=== PATIENT | female | born 1965 | race Caucasian/White ===

== ENCOUNTER 2016-03-31 14:25 | Inpatient (IN) | payer OTHER ==
[2016-03-31] MEDS: VANCOMYCIN 1 GM/NS 250 ML IV SCH (17:14)
[2016-03-31 18:28] LABS: MANUAL DIFF NEEDED? NO
[2016-03-31 18:31] LABS: BASO% 0.3 % (0.0-0.8); EOS# 0.11 X1000 (0.0-0.7); EOS% 1.5 % (0.0-10.0); HEMATOCRIT 35.5 % (37.0-47.0); HEMOGLOBIN 11.1 g/dL (12.0-16.0); IMM GRAN# 0.03 X1000 (0.0-0.04); IMM GRAN% 0.4 % (0.0-0.5); LYMPH# 1.04 X1000 (1.2-3.4); LYMPH% 13.9 % (20.5-51.1); MCH 25.7 PG (27-31); MCHC 31.3 g/dL (33-37); MCV 82.2 FL (81-99); MONO# 0.54 X1000 (0.11-0.59); MONO% 7.2 % (1.7-9.3); NEUT% 76.7 % (42.2-75.2); PLT 393 X1000 (130-400); RBC 4.32 XMIL (4.2-5.4)
[2016-03-31 19:05] LABS: AGAP 14; BUN 9 mg/dL (8-22); CHLORIDE 101 mmol/L (98-107); COSMO 276; POTASSIUM 4.1 mmol/L (3.5-5.1); SODIUM 138 mmol/L (136-145); TCO2 23 mmol/L (25-35)
[2016-04-01] MEDS: MOTRIN PO PRN ×3 (00:13→21:40)
[2016-04-01] MEDS: VANCOMYCIN 1 GM/NS 250 ML IV SCH ×2 (04:56→17:22)
[2016-04-01] MEDS ORDERED: SYNTHROID PO ONE (13:41)
[2016-04-01] MEDS ORDERED: ROBAXIN PO ONE ×2 (13:43→21:46)
[2016-04-01] MEDS ORDERED: MAXALT PO ONE (13:45)
[2016-04-01] MEDS: DUONEB (A & A) INH SCH ×2 (15:46→20:59)
[2016-04-01] MEDS ORDERED: WELCHOL PO SCH (21:00)
[2016-04-01] MEDS: WELCHOL PO SCH (21:42)
[2016-04-02] MEDS: DUONEB (A & A) INH SCH ×4 (03:26→21:44)
[2016-04-02] MEDS: VANCOMYCIN 1 GM/NS 250 ML IV SCH ×2 (04:50→17:59)
[2016-04-02] MEDS: ZEGERID 40 MG PO SCH (06:07)
[2016-04-02] MEDS: SYNTHROID PO SCH (06:07)
[2016-04-02] MEDS: MOTRIN PO PRN (06:07)
--- NOTE | 2016-04-02 06:45 | PROGRESS NOTE ---
DATE: 04/02/2016 SUBJECTIVE: Patient doing well. No major issues. She has been on antibiotics for cellulitis of her right lower extremity. She reports no issues at this time. Nursing staff denies any issues. OBJECTIVE: Vital signs: The patient has been afebrile. Her vital signs have been stable. General: No acute distress. Alert, interactive, female, looks stated age. HEENT: Normocephalic, atraumatic. Pupils equal, round, reactive to light. Mucous membranes moist. Oropharynx benign. Neck: Supple. Trachea midline. Cardiovascular: Regular rate and rhythm. Lungs: Grossly clear. Abdomen: Soft, nontender, nondistended. Extremities: Swelling noted to bilateral lower extremities. Right side appears to be worse. There is some erythema noted to the leg, although there are no signs of clinical worsening. Vascular: All extremities perfused. LABORATORY: None today. ASSESSMENT AND PLAN: A 50-year-old female with cellulitis of the right lower extremity, likely secondary to swelling. Cellulitis: At this time, she is on antibiotics. Will continue antibiotics through the weekend while she needs to keep her leg elevated to allow some drainage of the fluid. Will continue to follow the patient closely.
[2016-04-02] MEDS: ALLEGRA PO SCH (09:31)
[2016-04-02] MEDS: SANTYL OINT TOP SCH (09:39)
[2016-04-02] MEDS: WELCHOL PO SCH (21:18)
[2016-04-02] MEDS ORDERED: ROBAXIN PO PRN (21:32)
[2016-04-03] MEDS: DUONEB (A & A) INH SCH ×5 (03:19→23:35)
[2016-04-03] MEDS: ZEGERID 40 MG PO SCH (06:07)
[2016-04-03] MEDS: SYNTHROID PO SCH (06:07)
[2016-04-03] MEDS: VANCOMYCIN 1 GM/NS 250 ML IV SCH ×2 (06:07→18:23)
--- NOTE | 2016-04-03 07:25 | PROGRESS NOTE ---
DATE: 04/03/2016 SUBJECTIVE: Patient doing well. No major issues. OBJECTIVE: Vital Signs: Patient is currently afebrile. Her vital signs have been stable. General exam: No acute distress. Alert, interactive female, looks stated age. HEENT: Normocephalic, atraumatic. Pupils equal, round, reactive to light. Mucous membranes moist. Oropharynx benign. Neck: Supple. Trachea midline. Cardiovascular: Regular rate and rhythm. Lungs: Grossly clear. Abdomen: Soft, nontender, nondistended. Extremities: Swelling noted bilateral lower extremities. Right side appears grossly unchanged from yesterday but no worsening. There is still some erythema noted and significant swelling. LABORATORY: None. MICROBIOLOGY: Shows gram-positive cocci. ASSESSMENT AND PLAN: A 50-year-old female with cellulitis of the right lower extremity likely secondary to swelling. Cellulitis. At this time she is on antibiotics with good coverage for the potential bacterium that is causing her infection. Will keep her leg elevated and monitor her through the weekend.
[2016-04-03] MEDS: ALLEGRA PO SCH ×2 (07:57→11:07)
[2016-04-03] MEDS: SANTYL OINT TOP SCH (07:59)
[2016-04-03] MEDS: WELCHOL PO SCH ×2 (19:57→22:41)
[2016-04-03] MEDS: MOTRIN PO PRN (19:57)
[2016-04-04] MEDS: DUONEB (A & A) INH SCH ×4 (05:28→21:42)
[2016-04-04] MEDS: VANCOMYCIN 1 GM/NS 250 ML IV SCH ×2 (05:28→16:00)
[2016-04-04] MEDS: ZEGERID 40 MG PO SCH ×2 (05:28→09:08)
[2016-04-04] MEDS: SYNTHROID PO SCH ×2 (05:28→09:08)
[2016-04-04] MEDS: SANTYL OINT TOP SCH (09:39)
[2016-04-04] MEDS: ALLEGRA PO SCH (09:39)
[2016-04-04] MEDS: WELCHOL PO SCH (21:07)
[2016-04-05] MEDS: DUONEB (A & A) INH SCH ×4 (03:58→19:49)
[2016-04-05] MEDS: ZEGERID 40 MG PO SCH (06:21)
[2016-04-05] MEDS: VANCOMYCIN 1 GM/NS 250 ML IV SCH ×2 (06:21→17:40)
[2016-04-05] MEDS: SYNTHROID PO SCH (06:21)
[2016-04-05] MEDS: ALLEGRA PO SCH (08:14)
[2016-04-05] MEDS: SANTYL OINT TOP SCH (08:14)
[2016-04-05] MEDS: MOTRIN PO PRN (10:07)
[2016-04-05] MEDS: WELCHOL PO SCH (20:04)
[2016-04-06] MEDS: DUONEB (A & A) INH SCH (04:04)
[2016-04-06] MEDS: SYNTHROID PO SCH (06:06)
[2016-04-06] MEDS: VANCOMYCIN 1 GM/NS 250 ML IV SCH (06:06)
[2016-04-06] MEDS: ZEGERID 40 MG PO SCH (06:06)
[2016-04-06 07:49] VITALS: BP 135/71
[2016-04-06] MEDS: ALLEGRA PO SCH (08:32)
--- NOTE | 2016-04-07 17:05 | DISCHARGE SUMMARY ---
ADMISSION DATE: 03/31/2016 DISCHARGE DATE: 04/06/2016 PRIMARY DISCHARGE DIAGNOSIS: Right lower extremity ulceration with cellulitis. OTHER DIAGNOSES: 1. Spina bifida. 2. Autoimmune disorder. 3. Gastroesophageal reflux disease. HOSPITAL COURSE: This is a 50-year-old lady who has failed outpatient therapy for her right lower extremity cellulitis and ulceration. She is noncompliant. So we have admitted her for bed rest, elevation of her legs, IV antibiotic therapy. HOSPITAL COURSE: Following her admission, Jimena was placed on vancomycin. Santyl was used for her ulcer. Ibuprofen is used for pain. Over the course of her hospital stay her swelling significantly decreased, the erythema decreased. Her wound culture grew out coagulase-negative staph. On or about 04/06, it was felt she could be discharged home. We will wrap her legs in an Unna boot. She is to [facility]. We will send her home on Keflex. She will resume her other usual medications. She is significantly improved after hospitalization.
== END 2016-04-06 10:36 | disposition home or self-care (01) | DRG 603 ==
LOC: DIRADM 14:25 → 4N 15:12
PROVIDERS: ADMIT Surgery; ATTEND Surgery
DX: L03.116 Cellulitis of left lower limb (principal); I83.219 Varicose veins of right lower extremity with both ulcer of unspecified site and inflammation; F32.9 Major depressive disorder, single episode, unspecified; M19.90 Unspecified osteoarthritis, unspecified site; M35.9 Systemic involvement of connective tissue, unspecified; K21.9 Gastro-esophageal reflux disease without esophagitis; E07.9 Disorder of thyroid, unspecified; B95.61 Methicillin susceptible Staphylococcus aureus infection as the cause of diseases classified elsewhere; Z87.891 Personal history of nicotine dependence; Z80.9 Family history of malignant neoplasm, unspecified; Z79.1 Long term (current) use of non-steroidal anti-inflammatories (NSAID); Q05.9 Spina bifida, unspecified; Z91.19 Patient's noncompliance with other medical treatment and regimen
CPT/HCPCS: 80048; 85025; 87070; 87077; 87186; 94640; 94761; J3370

== ENCOUNTER 2016-08-06 12:22 | Inpatient (IN) ==
[2016-08-06 13:13] LABS: MANUAL DIFF NEEDED? NO; URINE CULTURE NEEDED? NO; URINE MICRO REVIEW NEEDED? NO; URINE SOURCE CLEAN CATCH
[2016-08-06 13:15] LABS: BASO% 0.8 % (0.0-0.8); EOS# 0.09 X1000 (0.0-0.7); EOS% 1.1 % (0.0-10.0); HEMATOCRIT 36.2 % (37.0-47.0); HEMOGLOBIN 11.7 g/dL (12.0-16.0); LYMPH# 0.97 X1000 (1.2-3.4); LYMPH% 12.4 % (20.5-51.1); MCH 26.5 PG (27-31); MCHC 32.3 g/dL (33-37); MCV 81.9 FL (81-99); MONO# 0.68 X1000 (0.11-0.59); MONO% 8.7 % (1.7-9.3); MPV 9.2 FL (7.4-10.4); PLT 360 X1000 (130-400); RBC 4.42 XMIL (4.2-5.4)
[2016-08-06 13:17] LABS: BILIRUBIN URINE NEGATIVE (NEGATIVE); BLOOD URINE NEGATIVE (NEGATIVE); COLOR STRAW; GLUCOSE URINE NEGATIVE (NEGATIVE); LEUKOCYTES URINE NEGATIVE (NEGATIVE); NITRITE URINE NEGATIVE (NEGATIVE); PH URINE 6.5; PROTEIN URINE NEGATIVE (NEGATIVE); SP GRAVITY URINE 1.003; TURBIDITY URINE CLEAR (CLEAR); UR EPITHELIAL CELLS <10 /HPF (<10); URINE BACTERIA NEGATIVE /HPF; URINE RBC <10 /HPF (<10); URINE WBC <10 /HPF (<10); UROBILINOGEN URINE NORMAL (NORMAL)
[2016-08-06 13:32] LABS: AGAP 11; BUN 13 mg/dL (8-22); CALCIUM 8.8 mg/dL (8.8-10.2); CHLORIDE 106 mmol/L (98-107); COSMO 281; POTASSIUM 3.4 mmol/L (3.5-5.1); SODIUM 141 mmol/L (136-145); TCO2 24 mmol/L (25-35)
[2016-08-06] MEDS ORDERED: KLOR-CON PO ONE (13:45)
[2016-08-06] MEDS ORDERED: NS 1,000 ML IV ONE (13:52)
--- NOTE | 2016-08-06 15:24 | Diag Imaging Result Doc PS360 ---
EXAM: HEAD W/WO CONTRAST HISTORY: frequent falls, dizziness TECHNIQUE: CT of the head with and without contrast with dose reduction (clarity.) COMMENT: There is no evidence of bleed or abnormal extra-axial fluid collection. No mass effect or abnormal contrast enhancement is present. The regional skeleton is intact. The visualized paranasal sinuses are clear. IMPRESSION: No evidence of acute intracranial disease. Electronically signed by Magnus Swain 08/06/2016 3:22 PM
--- NOTE | 2016-08-06 17:24 | Diag Imaging Result Doc PS360 ---
EXAM: ANGIOGRAM/PULMONARY ARTERIES HISTORY: low 02 sat, tachycardia TECHNIQUE: CT of the chest with intravenous contrast and decreased dose (clarity.) COMMENT: There is some artifact due to motion. There are no definite pulmonary arterial filling defects. The thoracic aorta is not distended and there is no evidence of dissection. There are patchy groundglass and denser alveolar opacities in both lower lobes the right middle lobe and the posterior upper lobes bilaterally. There is a calcified granuloma in the right upper lobe. IMPRESSION: No evidence of pulmonary emboli. Pulmonary edema +/- pneumonia. Electronically signed by Magnus Swain 08/06/2016 5:22 PM
[2016-08-06] MEDS ORDERED: SOLU-MEDROL IV ONE (17:39)
[2016-08-06] MEDS ORDERED: DUONEB (A & A) INH ONE (17:39)
[2016-08-06 18:02] LABS: ALLEN TEST YES; BE -1.2 mmoll (-3.0-3.0); BLOOD TYPE ARTERIAL; DRAW SITE R RADIAL; METHB 0.9 % (0.0-1.5); O2(CT) 14.8 mL/dL (15.0-23.0); PCO2(98.6) 34 mmHg (35-45); PO2(98.6) 51 mmHg (60-100); SAMPLE BLOOD; SAO2 92.1 % (95.0-100.0); THB 11.7 g/dL (11.5-17.4); pH(98.6) 7.43 (7.35-7.45)
[2016-08-06 18:03] LABS: MODALITY CANNULA
--- NOTE | 2016-08-06 18:04 | PROVIDER DOCUMENTATION ---
This chart was entered by Sally Bradford Scribe, acting as scribe for Gerry Russo MD. HPI-General Adult - General Chief Complaint: Fall Stated Complaint: fall/hx of vertigo Time Seen by Provider: 08/06/16 12:23 Source: patient Allergies/Adverse Reactions: Patient Allergies Allergy/AdvReac Type Severity Reaction Status Date / Time latex Allergy RASH Verified 08/06/16 12:51 hydrocodone bitartrate * AdvReac ITCHING Verified 08/06/16 12:51 [From Lorcet (hydrocodone)] morphine AdvReac ITCHING Verified 08/06/16 12:51 prednisone AdvReac Unknown Verified 08/06/16 12:51 Home Medications: Home Medication List Medication Instructions Recorded Confirmed Last Taken Type Albuterol [Albuterol Neb] 2.5 mg INH Q4H PRN PRN 03/31/16 03/31/16 03/28/16 History Colesevelam HCl [Welchol] 3,750 mg PO QHS 03/31/16 04/01/16 03/31/16 History 1875 Fexofenadine [Faye] 180 mg PO DAILY 03/31/16 03/31/16 03/31/16 History 180 Ipratropium/Albuterol INH 1 puff INH RTQ6H 03/31/16 03/31/16 03/31/16 History [Combivent Respimat Inhaler] 1 puff Levothyroxine Sodium [Synthroid] 88 mcg PO DAILY 03/31/16 03/31/16 03/31/16 History 88 Methocarbamol [Robaxin-750] 750 mg PO QHS 03/31/16 03/31/16 Unknown History Omeprazole/Sodium Bicarbonate 40 mg PO DAILY PRN PRN 03/31/16 03/31/16 03/28/16 History [Zegerid 40 mg] 40 Rizatriptan Benzoate [Maxalt] 5 mg PO 5XDAY 03/31/16 03/31/16 03/27/16 History Cephalexin [Keflex] 500 mg PO 4XDAY #20 capsule 04/06/16 Unknown Rx - History of Present Illness -Gen Adult Nature of Presenting Problems: 50 Y/O F presents to the ER by EMS with the complaint of falling from her wheelchair [employer]. Pt states that she has Hx of dizziness and has fallen 4 times in past X4 days from her wheelchair. She says she may have blacked out for a second. pt denies any trauma to her head or any other injuries. Location of Pain/Injury: reports: none Onset/Duration: reports: just prior to arrival Associated Symptoms: reports: other Similar Symptoms Previously?: Yes Recently seen or treated by another doctor?: No Review of Systems - Adult - REVIEW OF SYSTEMS - ADULT Constitutional: reports: no symptoms reported Eyes: reports: no symptoms reported Ears, Nose, Mouth & Throat: reports: no symptoms reported Cardiovascular: reports: no symptoms reported. denies: palpitations Respiratory: reports: no symptoms reported. denies: cough, dyspnea on exertion , shortness of breath Gastrointestinal: reports: no symptoms reported Genitourinary: reports: no symptoms reported Musculoskeletal: reports: no symptoms reported, other (Usually uses forearm crutches but due to recent foot/leg problem she has been in manual W/C; Has some mild R shoulder pain due to use of manual W/C) Integumentary: reports: no symptoms reported Neurological: reports: see HPI, dizziness/vertigo. denies: headache/migraines Psychiatric: reports: no symptoms reported Endocrine: reports: no symptoms reported Hematologic/Lymphatic: reports: no symptoms reported Allergic/Immunologic: reports: no symptoms reported All Other Systems: Reviewed and Negative Past History - Adult - PAST MEDICAL HISTORY-ADULT Review of Records: reports: Old Records Reviewed, Nursing Assessment Review, Social history reviewed & non-contributory. Major Childhood Illnesses: reports: denies history Cardiovascular: reports: denies history Respiratory: reports: denies history Gastrointestinal: reports: denies history Obstetrical/Gynecological: reports: denies history Genitourinary: reports: denies history Musculoskeletal: reports: chronic pain Neurological: reports: other (cerebral palsy) Psychiatric: reports: denies history Endocrine/Immune: reports: denies history Other Conditions: reports: denies history - IMMUNIZATION STATUS Childhood Immunizations: See Nurse Assessment Flu Vaccine: See Nurse Assessment - FAMILY HISTORY Family History: reviewed, not pertinent Physical Exam-General - PHYSICAL EXAM-ADULT Initial Vital Signs Reviewed: Yes (At the time of my exam patient was not tachypneic) - CONSTITUTIONAL General Appearance: appears well, alert, no apparent distress - EYES Eyes: PERRL/EOMI, pink conjunctivae - HEAD, EARS, NOSE, MOUTH & THROAT HENMT: moist mucous membranes, normal ENT inspection - NECK Neck: non-tender, full range of motion, supple - RESPIRATORY Respiratory: lungs clear, normal breath sounds, no pleuratic chest pain, no respiratory distress - CARDIOVASCULAR Cardiovascular: regular rate, rhythm, no edema - GASTROINTESTINAL (ABDOMEN) Abdominal Exam: normal bowel sounds, soft - MUSCULOSKELETAL Back Exam: no CVA tenderness, no vertebral tenderness, other (Right lower leg with moleskin bandage, monitored by home health) Extremity: swelling. negative: calf tenderness - SKIN Integumentary: normal color, warm/dry - NEUROLOGIC Neurologic: grossly normal, no motor/sensory deficits, other (Hx of vertigo) - PSYCHIATRIC Psych/Mental Status: normal mood/affect, normal thought content, normal thought process, oriented x 3 Progress - PLAN OF CARE/RESULTS Progress/Plan/Lab Results: Vital Signs - 8 hr 08/06/16 12:34 Temperature 98.0 F Pulse Rate 118 H Respiratory Rate 20 Blood Pressure 118/64 O2 Sat by Pulse Oximetry 99 Orders Category Date Time Status BMP [BASIC METABOLIC PANEL] [CHEM] Stat Lab 08/06/16 12:41 Uncollected CBC WITH ELECTRONIC DIFF [HEME] Stat Lab 08/06/16 12:41 Uncollected URINALYSIS W/POSS RFLX CULT [URINALYSIS] Stat Lab 08/06/16 12:41 Uncollected EKG [EKG] Stat Ther 08/06/16 12:41 Ordered 1401 Reassessed patient. She is better but not 100%. I explained her lab values and sinus tachycardia. I do not have an explanation for her falls. Decided to get CT head and bolus fluids then re-evaluate. 1540 Patient says she is ready to go home. CT negative. Her HR is still greater than 100. She now relates that she gets very anxious in the hospital and she also used 'an inhaler' this morning. Her records indicate combivent but she could not confirm. Nurse then noted low 02 sat. Will get CTA pulmonary angio. 1750 Re-examined patient. Her 02 was still low despite 02 and attempts to adjust sensor. Continues to be tachycardic. Discussed with Dr. Zeng about admission. ABG and breathing treatment are pending. Result Diagrams: 08/06/16 12:57 08/06/16 12:57 - EKG 1 Time of EKG reading by physician:: 13:04 EKG Read and Signed by:: Gerry Russo EKG Interpretation (*Must complete 3 of following elements*): Abnormal Rate: 117 Rhythm: Sinus Tachycardia Comments: Abnormal ECG - CT/MRI 1 CT Study: Head Impression: Normal CT Results: no evidence of acute intracraniel disease by radiologist 2 CT Study: Angiogram (pulmonary) Impression: See EMR Report CT Results: no evidence of pulmonary emboli,pulmonary edema+/- pneumonia - CONSULTS/PCP/HOSPITALIST Notification #1 *Consult/PCP/Hospitalist*: Dr. Zeng Time Discussed: 17:47 Reason/Comments: Dr. Russo constulted about pt with Dr Zeng Departure - Departure Date of Disposition Decision: 08/06/16 Time of Disposition Decision: 18:02 DIAGNOSIS: Tachycardia, Hypoxemia Disposition: ADMITTED INPATIENT 09 Certified Medical Emergency: Emergent Condition: Stable Referrals and Follow-Ups: None,PCP [Primary Care Provider] - - Critical Care Note This patient required my direct & personal management of CC.: No This chart was documented by the indicated scribe, (Sally Bradford Scribe) and accurately reflects the services I performed and decisions made by me, Gerry Russo MD, as attested by the provider's signature.
--- NOTE | 2016-08-06 19:15 | HISTORY AND PHYSICAL ---
CHIEF COMPLAINT: Shortness of breath and this patient blacked out in the morning . HISTORY OF PRESENT ILLNESS: 50-year-old female with a past medical history of cerebral palsy, multiple bronchitis, obesity, hypothyroidism, GERD, came to the emergency department with a chief complaint of shortness of breath. As per the patient, she has been having shortness of breath for the past 2 days and also she has been noticing that she has been having lower extremity edema bilaterally for the past 2 days as well. Today around 11:15 a.m. she started having more shortness of breath and she blacked out. When she woke up she was lying on the floor. She does not remember how long she spent in that situation. This also associated with cough and mild chills but she states that she has been having chills before because she has hypothyroidism. When she recovered, she was having palpitations. She also states that for the past week she has been feeling more weak and she has been falling. She denies nausea, vomiting, no diarrhea, no constipation. No runny nose. No sick contacts. PAST MEDICAL HISTORY: Bronchitis, cerebral palsy, obesity, hypothyroidism, GERD and right lower extremity cellulitis. PAST SURGICAL HISTORY: Hysterectomy. Wound care for ulcers at the level of the right lower extremities and cellulitis. SOCIAL HISTORY: She used to smoke 20 years ago for 3 years and she used to smoke 2 packs per day. Alcohol occasionally and no drugs. ALLERGIES: She is allergic to narcotics, latex and sulfa medication. She is also allergic to Levaquin. BLOOD TRANSFUSIONS: None. FAMILY HISTORY: Positive for cancer in her dad and also possible COPD. REVIEW OF SYSTEMS: General: This patient is obese. In no acute distress. Right lower extremity is wrapped with a clean dressing that was removed. She has some small superficial ulcers that do not look infected at the level of the right ankle. Lower extremities are edematous but this looked chronic. The rest of the review of systems were reviewed. All of them negative except as per HPI. PHYSICAL EXAM: Temperature 97.7 degrees, pulse 117, respiratory rate 30, blood pressure 143/68 , oxygen saturation 95% on 4 L of nasal cannula. HEENT: Head normocephalic. No trauma. PERRLA. NECK: Supple. No JVD. No masses. Central trachea. CHEST: Decreased breath sounds at the bases with rales at the level of the mid and lower lungs. ABDOMEN: Is soft, nontender, nondistended. No hepatosplenomegaly. EXTREMITIES: 2+ lower extremity edema. She has a clean dressing at the level of the right ankle that was removed. She has some superficial ulcers at the level of the right ankle as well. NEUROLOGICAL: The patient is alert and oriented x3. No focal neurological deficits. She moves all 4 extremities but she has some difficulty moving the right lower extremity that is chronic and is secondary to her cerebral palsy. LABORATORY: WBC 7.8, hemoglobin 11.7, hematocrit 36.2, platelets 360,000. Sodium 141, potassium 3.4, chloride 106, bicarbonate 24, BUN 13, creatinine 0.6. Negative urinalysis. Glucose 91. ASSESSMENT AND PLAN: 1. Syncope, unclear etiology. She has the fluids at the level of the lungs and she has been complaining of respiratory distress for the past 2 days, likely this is secondary to this. This patient has been admitted to the medical floor with telemetry, we will monitor her heart rate and respiratory rate, and she will have an echocardiogram done as well. CT of the head and CT angiogram negative. 2. Fluid overload. I will start this patient on Lasix 40 IV twice a day, and also I will put a latex free [place] catheter. I will monitor the urine output and the kidney function. 3. Anemia, the MCV is 81.9, is borderline normocytic anemia. I will ask for the anemia workup. 4. Hypokalemia. Will replace the potassium. 5. Acute hypoxemic respiratory failure, this patient has been placed on oxygen and the oxygen saturation is better. We will continue to monitor. 6. Hypothyroidism. We will continue with her home medications. We will check the TSH. 7. Cerebral palsy, aware. This is chronic and stable. 8. Obesity. Will monitor. This patient has been advised about the diet. I advised to follow a diet, we will continue with daily education. 9. Right lower extremity superficial ulcers, Wound Care will be on board. They do not look infected. 10. Possible pneumonia: I will put this patient in antibiotics Further recommendations depending on this patient's hospital course. cc: MD KHURRAM Lopes
[2016-08-06 20:21] LABS: CK INDEX 4.2 (0.0-2.5); CK-MB 8.26 ng/mL (0.0-5.0)
[2016-08-06] MEDS: DUONEB (A & A) INH SCH (21:08)
[2016-08-06] MEDS: ROCEPHIN 1 GM/NS 1 GM/50 ML IVPB IV SCH (21:17)
[2016-08-06] MEDS: ZITHROMAX 500 MG/NS 500 MG/250 ML IVPB IV SCH (21:17)
[2016-08-06] MEDS: LOVENOX SUBQ SCH (21:17)
[2016-08-06] MEDS: LASIX IV SCH (21:18)
[2016-08-06] MEDS: PRILOSEC PO SCH (22:17)
[2016-08-06] MEDS: TYLENOL PO PRN (23:19)
[2016-08-07] MEDS: DUONEB (A & A) INH SCH ×4 (03:53→21:01)
[2016-08-07 04:38] LABS: AGAP 10; BUN 10 mg/dL (8-22); CALCIUM 8.2 mg/dL (8.8-10.2); CHLORIDE 106 mmol/L (98-107); COSMO 279; IRON SATURATION 10 %; POTASSIUM 3.9 mmol/L (3.5-5.1); SODIUM 139 mmol/L (136-145); TCO2 23 mmol/L (25-35); TIBC 236 ug/dL; TOTAL IRON 23 ug/dL (49-151); UNBOUND IRON 213 ug/dL (112-346)
[2016-08-07 05:13] LABS: URINE MICRO REVIEW NEEDED? NO; URINE SOURCE CLEAN CATCH
[2016-08-07 05:28] LABS: BILIRUBIN URINE NEGATIVE (NEGATIVE); BLOOD URINE NEGATIVE (NEGATIVE); COLOR YELLOW; GLUCOSE URINE NEGATIVE (NEGATIVE); LEUKOCYTES URINE SMALL (NEGATIVE); NITRITE URINE POSITIVE (NEGATIVE); PROTEIN URINE NEGATIVE (NEGATIVE); TURBIDITY URINE CLEAR (CLEAR); UROBILINOGEN URINE NORMAL (NORMAL)
[2016-08-07 05:30] LABS: UR EPITHELIAL CELLS <10 /HPF (<10); URINE BACTERIA 4+ /HPF; URINE CULTURE NEEDED? YES; URINE RBC <10 /HPF (<10); URINE WBC TNTC /HPF (<10)
[2016-08-07] MEDS: LASIX IV SCH ×2 (08:59→20:46)
[2016-08-07] MEDS: PRILOSEC PO SCH ×2 (08:59→20:46)
[2016-08-07] MEDS ORDERED: MAXALT PO PRN (12:00)
--- NOTE | 2016-08-07 13:45 | ECHO REPORT ---
ORDER DATE: 08/07/2016 ECHOCARDIOGRAPHIC MEASUREMENTS: 1. Interventricular septum 1.4 Left ventricular posterior wall 1.1. Diastolic diameter 4.0. Left atrium 4.1. Aorta 2.6. 2. Mitral valve was normal. Tricuspid valve was normal. 3. Aortic valve leaflets were trileaflet opening normally. Pulmonic valve was normal. 4. Normal left ventricular cavity size. Estimated ejection fraction of 60-65%. 5. Technically suboptimal study. Poor apical windows. 6. There is trace to mild tricuspid regurgitation. Peak velocity across the tricuspid valve was 2 m/sec. There is mild mitral regurgitation. 7. Peak velocity across the aortic valve less than 2 m/sec. By Doppler studies there is no aortic stenosis or regurgitation. 8. There is no pericardial effusion or obvious intracardiac mass or thrombus seen. cc: MD Sg Britton CRNP
--- NOTE | 2016-08-07 15:05 | PROGRESS NOTE ---
DATE: 08/07/2016 SUBJECTIVE: This patient states that she is feeling much better, she has just had an echocardiogram done, pending results. She denies shortness of breath or abdominal pain. No chest pain. OBJECTIVE: Vital Signs: Temperature 97.3 degrees, pulse 88, respiratory rate 18, blood pressure 117/65, oxygen saturation 98% on room air. HEENT: Normocephalic. No trauma. PERRLA. Neck: Supple. No JVD. No masses. Central trachea. Chest: Mild rales at the bases. Otherwise, clear to auscultation. Abdomen: Soft, nontender, nondistended. No hepatosplenomegaly. Extremity: 1+ lower extremity edema. She has a clean dressing at the level of the right ankle that was removed. She has a superficial ulcer at the level of the right ankle as well. Neurological: The patient is alert, oriented x3. She moves all 4 extremities, but she has some difficulty moving the right lower extremity. This is chronic and is secondary to cerebral palsy. LABORATORY: Sodium 139, potassium 3.9, chloride 106, bicarbonate 23, BUN 10, creatinine 0.6, glucose 150, calcium 8.2. Urinalysis positive for nitrate and WBC. 4+ bacteria and a small amount of leukocyte. ASSESSMENT AND PLAN: 1. Syncope, unclear etiology. This patient has probably pulmonary edema and/or pneumonia, also this patient has urinary tract infection. She has been placed on antibiotics. She received a dose of Lasix and she is feeling much better now. We will continue to monitor. 2. CT of the head and CT angiogram of the chest was negative. 3. Fluid overload. Continue with the same management. Continue with Lasix. 4. Anemia. We will monitor. 5. Stable. 6. Hypokalemia, potassium has been replaced, today is normal. 7. Acute hypoxemic respiratory failure. This is much better. She is breathing better. She has no complaint of shortness of breath today. 8. Hypothyroidism. Continue with levothyroxine. 9. Cerebral palsy, aware. 10. Obesity. We will monitor. I will continue with daily education. 11. Right lower extremity superficial ulcer. This is chronic. Wound Care is on board. It does not look infected. 12. Pneumonia. I will continue with bibasilar pneumonia. I will continue with antibiotics. 13. Urinary tract infection, this patient is already on ceftriaxone. We will continue with the same management. cc: Matt Moreno MD
[2016-08-07] MEDS: ROCEPHIN 1 GM/NS 1 GM/50 ML IVPB IV SCH (20:45)
[2016-08-07] MEDS: LOVENOX SUBQ SCH (20:45)
[2016-08-07] MEDS: TYLENOL PO PRN (20:56)
[2016-08-07] MEDS ORDERED: ROBAXIN PO SCH (21:00)
[2016-08-07] MEDS: ZITHROMAX 500 MG/NS 500 MG/250 ML IVPB IV SCH (21:26)
[2016-08-08] MEDS: DUONEB (A & A) INH SCH ×2 (03:59→08:06)
[2016-08-08] MEDS: PRILOSEC PO SCH (06:12)
[2016-08-08 07:15] LABS: AGAP 10; BUN 15 mg/dL (8-22); CALCIUM 8.3 mg/dL (8.8-10.2); CHLORIDE 101 mmol/L (98-107); COSMO 280; POTASSIUM 3.3 mmol/L (3.5-5.1); SODIUM 140 mmol/L (136-145); TCO2 29 mmol/L (25-35)
[2016-08-08] MEDS ORDERED: KLOR-CON PO ONE (08:05)
[2016-08-08] MEDS: TYLENOL PO PRN (08:29)
[2016-08-08] MEDS: LASIX IV SCH (08:30)
[2016-08-08] MEDS: VITAMIN C PO SCH ×2 (08:31→11:47)
[2016-08-08] MEDS ORDERED: VITAMIN D PO SCH (09:00)
[2016-08-08] MEDS ORDERED: ALLEGRA PO SCH (09:00)
[2016-08-08] MEDS ORDERED: SYNTHROID PO SCH (09:00)
[2016-08-08] MEDS ORDERED: SANTYL OINT TOP SCH (11:15)
[2016-08-08 12:31] VITALS: BP 118/65
--- NOTE | 2016-08-08 20:38 | DISCHARGE SUMMARY ---
ADMISSION DATE: 08/06/2016 DISCHARGE DATE: 08/08/2016 DISCHARGE DIAGNOSES: 1. Syncope. 2. Fluid overload. 3. Anemia. 4. Hypokalemia. 5. Acute hypoxemic respiratory failure, resolved. 6. Hypothyroidism. 7. Cerebral palsy. 8. Obesity. 9. Urinary tract infection. 10. Right lower extremity superficial ulcer. 11. Bibasilar pneumonia. CONSULTATIONS: None. HOSPITAL COURSE: A 50-year-old female with a past medical history of cerebral palsy, multiple bronchitis, obesity, hypothyroidism, GERD came to the emergency department with a chief complaint of shortness of breath. As per the patient, she has been having shortness of breath for 2 days previous to admission and also she has been noticing more lower extremity edema. On the date of admission around 11:15 a.m. she started having so much shortness of breath that she blacked out. When she woke up, she was lying on the floor. She does not remember how long she spent in that situation. All the symptoms are associated with cough, mild chills and palpitations. Also she states that for the past week she has been feeling more weak and she has been falling. She was admitted and a CT angiogram was done but it did not show any pulmonary embolism but showed perivascular pulmonary infiltrates concerning for pulmonary edema and/or pneumonia. Laboratory showed hypokalemia and urine with positive nitrate, leukocytes and 4+ bacteria. This patient was admitted to the medical floor. I started this patient on antibiotics and also on furosemide. An echocardiogram was performed by Cardiology and this was negative. The patient was improving on a daily basis. Today she feels much better. This is why we will discharge this patient with strict followup by her primary care doctor. I will discharge this patient with a low dose of furosemide and potassium as well. She will be discharged with antibiotics to cover her urinary tract infection and possible pneumonia. DISCHARGE PHYSICAL EXAMINATION: Vital signs: Temperature 97.7 degrees, pulse 100, respiratory rate 18, blood pressure 118/65, oxygen saturation 100% on 2 L of nasal cannula. HEENT: Normocephalic. No trauma. PERRLA. Neck: Supple. No JVD. No masses. Central trachea. Chest: Decreased breath sounds at the bases with mild rales. Abdomen: Soft, nontender, nondistended. No hepatosplenomegaly. Extremities: Trace lower extremity edema. She has a clean dressing at the level of the right ankle that was removed. She has a superficial ulcer at the level of the right ankle as well. Neurological examination: The patient is alert and oriented x3. She moves all 4 extremities. She has some difficulty moving the right lower extremity and this is chronic and is secondary to her cerebral palsy. LABORATORY: Sodium 140, potassium 3.3, chloride 101, bicarbonate 29, BUN 15, creatinine 0.7, glucose 98, calcium 8.3, magnesium 1.9. We have a positive culture that showed gram-negative rods. DISCHARGE MEDICATIONS: 1. Acetaminophen 650 mg p.o. q.6 hours p.r.n. 2. Santyl 1 application topically daily. 3. Furosemide 20 mg p.o. daily. 4. Potassium chloride 10 mEq p.o. daily. 5. Augmentin 875 mg p.o. twice a day for 7 days. 6. Colesevelam 3750 mg p.o. at bedtime. 7. Levothyroxine 88 mcg p.o. daily. 8. Albuterol nebulization q.4 hours p.r.n. 9. Maxalt mg p.o. p.r.n. 10. Combivent inhaler 1 puff every 6 hours. 11. Faye 180 mg p.o. daily. 12. Omeprazole 40 mg p.o. daily p.r.n. 13. Robaxin 750 at bedtime. 14. Vitamin C, 1 tablet p.o. daily. 15. Vitamin D3, 1000 mg p.o. daily. FOLLOWUP: By her primary care doctor in 1 week. TOTAL TIME SPENT ON DISCHARGE: 35 minutes. cc: Matt Moreno MD
[2016-08-08] MEDS ORDERED: CIPRO PO SCH (21:00)
[2016-08-08] MEDS ORDERED: AUGMENTIN PO SCH (21:00)
--- NOTE | 2016-08-08 21:21 | Carotid Study ---
DATE: 08/07/2016 PROCEDURE: Bilateral duplex and color flow imaging of the carotid arteries performed using a GE Vivid E9 ultrasound system with a 9L-D transducer. REFERRING PHYSICIAN: Dr. Zeng. INTERPRETING PHYSICIAN: MARGIE: Vernell Womack RVT INDICATIONS: Dizziness, vertigo, [id number]. OBSERVED DATA RIGHT LEFT Brachial Blood Pressure Carotid Pulse Bruits: Carotid/Sub DIAGRAM OF ULTRASOUND IMAGING R L RIGHT INT EXT INT EXT LEFT Rashard (cm/s) Rashard (cm/s) Subclavian 84/0 Subclavian 156/0 CCA Proximal 92/21 CCA Proximal 115/23 CCA Distal 91/19 CCA Distal 108/25 Bulb 72/18 Bulb 100/24 ICA Proximal 86/18 ICA Proximal 87/15 ICA Mid 97/28 ICA Mid 73/26 ICA Distal 75/24 ICA Distal 71/26 ECA 99/10 ECA 120/18 Vertebral Forward flow, 50/17 Vertebral Forward flow, 44/14 ICA/CCA Ratio 1.05 ICA/CCA Ratio 0.76 % Stenosis 0-39% % Stenosis 0-39% PHYSICIAN INTERPRETATION: Mild atherosclerotic disease of the distal common and internal carotid arteries bilaterally without evidence of a hemodynamically significant lesion in either carotid system. cc: MD Sg Donnelly CRNP
[2016-08-09] MEDS ORDERED: KLOR-CON PO SCH (09:00)
[2016-08-09] MEDS ORDERED: LASIX PO SCH (09:00)
== END 2016-08-08 15:14 | disposition home or self-care (01) ==
LOC: ED 12:22 → 3N 19:23
PROVIDERS: ATTEND Internal Medicine

== ENCOUNTER 2016-08-18 14:36 | Inpatient (IN) ==
[2016-08-18] MEDS ORDERED: ASPIRIN PO ONE (14:57)
[2016-08-18 15:39] LABS: MANUAL DIFF NEEDED? NO
[2016-08-18 15:41] LABS: BASO% 0.3 % (0.0-0.8); EOS# 0.07 X1000 (0.0-0.7); EOS% 0.6 % (0.0-10.0); HEMATOCRIT 37.6 % (37.0-47.0); HEMOGLOBIN 12.1 g/dL (12.0-16.0); IMM GRAN# 0.02 X1000 (0.0-0.04); IMM GRAN% 0.2 % (0.0-0.5); LYMPH# 1.28 X1000 (1.2-3.4); LYMPH% 11.1 % (20.5-51.1); MCH 26.5 PG (27-31); MCHC 32.2 g/dL (33-37); MCV 82.3 FL (81-99); MONO# 1.16 X1000 (0.11-0.59); MONO% 10.1 % (1.7-9.3); MPV 9.8 FL (7.4-10.4); NEUT% 77.7 % (42.2-75.2); PLT 396 X1000 (130-400); RBC 4.57 XMIL (4.2-5.4)
[2016-08-18] MEDS ORDERED: NS 1,000 ML IV ONE (15:43)
--- NOTE | 2016-08-18 15:54 | EKG Report ---
Test Performed on : 08/18/2016 2:50:27 PM Test Reason : CHEST PAIN Blood Pressure : / mmHG Vent. Rate : 111 BPM Atrial Rate : 111 BPM P-R Int : 112 ms QRS Dur : 076 ms QT Int : 318 ms P-R-T Axes : 035 014 017 degrees QTc Int : 432 ms Sinus tachycardia. Nonspecific ST abnormality Abnormal ECG When compared with ECG of 18-AUG-2016 14:49, (Unconfirmed) No significant change was found Unconfirmed Result
[2016-08-18 16:03] LABS: AGAP 10; ALBUMIN 3.6 g/dL (3.5-5.0); ALKALINE PHOSPHATASE 72 U/L (32-104); BUN 12 mg/dL (8-22); CALCIUM 9.1 mg/dL (8.8-10.2); CHLORIDE 100 mmol/L (98-107); COSMO 270; GOT 24 U/L (10-30); GPT 18 U/L (10-36); POTASSIUM 3.4 mmol/L (3.5-5.1); SODIUM 136 mmol/L (136-145); TCO2 26 mmol/L (25-35); TOTAL PROTEIN 6.8 g/dL (6.3-8.3)
--- NOTE | 2016-08-18 16:14 | Diag Imaging Result Doc PS360 ---
EXAM: CHEST-2 VIEWS - 08/18/2016 HISTORY: chest pain TECHNIQUE: Chest two views COMPARISON: No comparison chest radiographs. Compared with the CT pulmonary angiogram of 08/06/2016. FINDINGS: Heart size is normal. The lungs appear essentially clear. The pulmonary opacities which were seen on the previous CT scan are not identified on this exam. There is a calcified granuloma from old granulomatous disease at the right apex. There is no pleural effusion or pneumothorax identified. IMPRESSION: No evidence of acute disease. Electronically signed by Leo Bhatia 08/18/2016 4:12 PM
[2016-08-18 16:23] LABS: MAGNESIUM 2.4 mg/dL (1.5-2.7)
[2016-08-18 16:24] LABS: PROTIME 10.5 Seconds (9.2-11.7); PTT 28.8 Seconds (22.0-36.0)
--- NOTE | 2016-08-18 16:32 | Diag Imaging Result Doc PS360 ---
EXAM: HEAD W/O CONTRAST - 08/18/2016 HISTORY: AMS TECHNIQUE: Dose reduction protocol COMPARISON: 08/06/2016 FINDINGS: There is no evidence of intracranial hemorrhage, mass effect, midline shift, or hydrocephalus. There is no evidence of infarct, although acute infarcts may not be immediately visible. There is a small subcutaneous lesion at the right anterior scalp which is stable. IMPRESSION: No visible acute intracranial anatomy. No hemorrhage or mass effect. Electronically signed by Leo Bhatia 08/18/2016 4:30 PM
[2016-08-18 17:01] LABS: CK INDEX 3.4 (0.0-2.5); CK-MB 14.04 ng/mL (0.0-5.0)
--- NOTE | 2016-08-18 17:02 | ED EKG INTERP ---
This chart was entered by Jenny Velasquez Scribe, acting as scribe for Rena Latham MD. EKG Interpretation - EKG Time of EKG reading by physician:: 14:50 EKG Read and Signed by:: Rena Latham EKG Interpretation (*Must complete 3 of following elements*): Abnormal Rate: 111 Rhythm: sinus tachy [place]: normal QRS: normal NE Interval: normal ST Wave: non-specific ST changes This chart was documented by the indicated scribe, (Jenny Velasquez Scribe) and accurately reflects the services I performed and decisions made by Yeison bach Wenli X, MD, as attested by the provider's signature.
[2016-08-18] MEDS ORDERED: KLOR-CON PO ONE (17:11)
[2016-08-18 17:43] LABS: URINE MICRO REVIEW NEEDED? NO; URINE SOURCE CATH
[2016-08-18 17:50] LABS: BILIRUBIN URINE NEGATIVE (NEGATIVE); BLOOD URINE NEGATIVE (NEGATIVE); COLOR YELLOW; GLUCOSE URINE NEGATIVE (NEGATIVE); LEUKOCYTES URINE TRACE (NEGATIVE); NITRITE URINE NEGATIVE (NEGATIVE); PH URINE 6.5; PROTEIN URINE NEGATIVE (NEGATIVE); SP GRAVITY URINE 1.011; TURBIDITY URINE CLEAR (CLEAR); UROBILINOGEN URINE NORMAL (NORMAL)
[2016-08-18 17:51] LABS: UR EPITHELIAL CELLS >10 /HPF (<10); URINE BACTERIA NEGATIVE /HPF; URINE CULTURE NEEDED? YES; URINE RBC <10 /HPF (<10); URINE WBC <10 /HPF (<10)
[2016-08-18 17:58] LABS: UR AMPHETAMINES QUAL NONE DETECTED (NONE DETECT); UR BARBITUATES QUAL NONE DETECTED (NONE DETECT); UR BENZODIAZEPIN QUAL NONE DETECTED (NONE DETECT); UR CANNABINOIDS QUAL NONE DETECTED (NONE DETECT); UR COCAINE QUAL NONE DETECTED (NONE DETECT); UR METHADONE QUAL NONE DETECTED (NONE DETECT); UR OPIATES QUAL NONE DETECTED (NONE DETECT); UR OXYCODONE QUAL NONE DETECTED (NONE DETECT); UR PCP QUAL NONE DETECTED (NONE DETECT)
--- NOTE | 2016-08-18 18:17 | PROVIDER DOCUMENTATION ---
This chart was entered by Jenny Velasquez Scribe, acting as scribe for Rena Latham MD. HPI-General Adult - General Chief Complaint: Weakness Stated Complaint: GENERAL WEAKNESS Time Seen by Provider: 08/18/16 15:35 Source: patient, family Allergies/Adverse Reactions: Patient Allergies Allergy/AdvReac Type Severity Reaction Status Date / Time latex Allergy RASH Verified 08/18/16 14:59 hydrocodone bitartrate * AdvReac ITCHING Verified 08/18/16 14:59 [From Lorcet (hydrocodone)] morphine AdvReac ITCHING Verified 08/18/16 14:59 prednisone AdvReac Unknown Verified 08/18/16 14:59 Home Medications: Home Medication List Medication Instructions Recorded Confirmed Last Taken Type Albuterol [Albuterol Neb] 2.5 mg INH Q4H PRN PRN 03/31/16 08/18/16 08/06/16 History Colesevelam HCl [Welchol] 3,750 mg PO QHS 03/31/16 08/18/16 08/06/16 07:00 History Fexofenadine [Faye] 180 mg PO DAILY 03/31/16 08/18/16 08/06/16 08:00 History Ipratropium/Albuterol INH 1 puff INH RTQ6H 03/31/16 08/18/16 08/06/16 History [Combivent Respimat Inhaler] Levothyroxine Sodium [Synthroid] 88 mcg PO DAILY 03/31/16 08/18/16 08/06/16 07: 00 History Methocarbamol [Robaxin-750] 750 mg PO QHS 03/31/16 08/18/16 08/05/16 20:00 History Rizatriptan Benzoate [Maxalt] 5 mg PO PRN PRN 03/31/16 08/18/16 03/27/16 History Ascorbic Acid [Vitamin C] 1 tab PO DAILY 08/07/16 08/18/16 08/06/16 08:00 History Furosemide [Lasix] 20 mg PO DAILY #90 tablet 08/08/16 08/18/16 Unknown Rx Montelukast [Singulair] 10 mg PO DAILY 08/18/16 08/18/16 Unknown History PRAVAstatin [Pravachol] 40 mg PO DAILY 08/18/16 08/18/16 Unknown History Prochlorperazine Maleate 10 mg PO DAILY 08/18/16 08/18/16 Unknown History [Compazine] - History of Present Illness -Gen Adult Nature of Presenting Problems: 50 y/o F presents to ED cc of weakness with falling. Pt reports having palpations x 1 week. Pt was recently admitted for falls and palpations. Pt states she is having a hard time taking care of self . Pt has lymphedema and an wound care on the R leg. Pt is alert and oriented. Location of Pain/Injury: reports: generalized Pain Radiation: reports: no radiation Quality of Pain: reports: other (weakness) Severity: reports: mild Onset/Duration: reports: 1 week ago Timing: reports: still present Context/Activities at Onset: reports: light activity Modifying Factors: improves with: nothing Associated Symptoms: reports: dizziness, weakness, other (palpations). denies: arm pain, back/neck pain, chest pain, cough, fever/chills, muscle aches, nausea , seizure, shortness of breath, swelling/mass in abdomen, syncope Similar Symptoms Previously?: Yes Recently seen or treated by another doctor?: Yes Review of Systems - Adult - REVIEW OF SYSTEMS - ADULT Constitutional: denies: chills, fever Eyes: denies: decreased vision, blurred vision, double vision, eye pain Ears, Nose, Mouth & Throat: denies: ear pain, nose pain, loose teeth, throat pain Cardiovascular: reports: palpitations. denies: chest pain Respiratory: denies: cough, shortness of breath Gastrointestinal: denies: abdominal pain, diarrhea, nausea, vomiting Genitourinary: denies: dysuria, hematuria, hesitency, urgency Musculoskeletal: denies: bone pain, back pain, joint pain, muscle aches Neurological: reports: other (weakness). denies: dizziness/vertigo, headache/ migraines, seizure, slurred speech, syncope Past History - Adult - PAST MEDICAL HISTORY-ADULT Review of Records: reports: Old Records Reviewed, Nursing Assessment Review Major Childhood Illnesses: reports: denies history Cardiovascular: reports: denies history Respiratory: reports: denies history Gastrointestinal: reports: denies history Obstetrical/Gynecological: reports: denies history Genitourinary: reports: denies history Musculoskeletal: reports: chronic pain Neurological: reports: other (cerebral palsy) Psychiatric: reports: denies history Endocrine/Immune: reports: thyroid disorder Other Conditions: reports: denies history - PRIOR SURGERIES/PROCEDURES Surgical/Procedure History: reports: hysterectomy - IMMUNIZATION STATUS Childhood Immunizations: See Nurse Assessment Flu Vaccine: See Nurse Assessment - FAMILY HISTORY Family History: reviewed, not pertinent - SOCIAL HISTORY Smoking: denies, non-smoker Substance Use: none/never, denies Physical Exam-General - PHYSICAL EXAM-ADULT Initial Vital Signs Reviewed: Yes - CONSTITUTIONAL General Appearance: appears well, alert, no apparent distress, obese - EYES Eyes: pink conjunctivae - HEAD, EARS, NOSE, MOUTH & THROAT HENMT: normocephalic/atraumatic, moist mucous membranes, normal ENT inspection - NECK Neck: non-tender, full range of motion - RESPIRATORY Respiratory: chest non-tender, lungs clear, normal breath sounds - CARDIOVASCULAR Cardiovascular: normal peripheral pulses, tachycardia - GASTROINTESTINAL (ABDOMEN) Abdominal Exam: normal bowel sounds, non tender, soft - LYMPHATIC Lymphatic: no adenopathy - MUSCULOSKELETAL Back Exam: normal inspection, no CVA tenderness, no vertebral tenderness Extremity: normal range of motion, non-tender, other (lymphaedema) - SKIN Integumentary: normal color, normal turgor, warm/dry - NEUROLOGIC Neurologic: grossly normal, no motor/sensory deficits - PSYCHIATRIC Psych/Mental Status: oriented x 3 Progress - PLAN OF CARE/RESULTS Progress/Plan/Lab Results: Vital Signs - 8 hr 08/18/16 14:50 Temperature 99.3 F Pulse Rate 120 H Respiratory Rate 20 Blood Pressure 112/58 O2 Sat by Pulse Oximetry 100 Laboratory Results - last 24 hr 08/18/16 08/18/16 08/18/16 15:05 15:05 15:05 WBC 11.48 H RBC 4.57 Hgb 12.1 Hct 37.6 MCV 82.3 MCH 26.5 L MCHC 32.2 L RDW Std Deviation 16.0 H Plt Count 396 MPV 9.8 Immature Gran % (Auto) 0.2 Neut % (Auto) 77.7 H Lymph % (Auto) 11.1 L Esmeralda % (Auto) 10.1 H Eos % (Auto) 0.6 Baso % (Auto) 0.3 Immature Gran # (Auto) 0.02 Neut # (Auto) 8.91 H Lymph # (Auto) 1.28 Esmeralda # (Auto) 1.16 H Eos # (Auto) 0.07 Baso # (Auto) 0.04 Sodium 136 Potassium 3.4 L Chloride 100 Carbon Dioxide 26 Anion Gap 10 BUN 12 Creatinine 0.7 Estimated GFR/1.73 m2 > 60 BUN/Creatinine Ratio 17 Glucose 75 Calculated Osmolality 270 Calcium 9.1 Magnesium Total Bilirubin 0.40 AST 24 ALT 18 Alkaline Phosphatase 72 Total Protein 6.8 Albumin 3.6 Globulin 3.2 Albumin/Globulin Ratio 1.1 Plasma/Serum Ethyl Alc 08/18/16 15:05 WBC RBC Hgb Hct MCV MCH MCHC RDW Std Deviation Plt Count MPV Immature Gran % (Auto) Neut % (Auto) Lymph % (Auto) Esmeralda % (Auto) Eos % (Auto) Baso % (Auto) Immature Gran # (Auto) Neut # (Auto) Lymph # (Auto) Esmeralda # (Auto) Eos # (Auto) Baso # (Auto) Sodium Potassium Chloride Carbon Dioxide Anion Gap BUN Creatinine Estimated GFR/1.73 m2 BUN/Creatinine Ratio Glucose Calculated Osmolality Calcium Magnesium 2.4 Total Bilirubin AST ALT Alkaline Phosphatase Total Protein Albumin Globulin Albumin/Globulin Ratio Plasma/Serum Ethyl Alc Orders Category Date Time Status Cardiac Monitoring DIRECTED Care 08/18/16 15:43 Active Saline Loc NOW Care 08/18/16 15:43 Active CHEST-2 VIEWS [RAD] Stat Exams 08/18/16 14:57 Completed HEAD W/O CONTRAST [CT] Stat Exams 08/18/16 15:44 Taken ALCOHOL BLOOD Stat Lab 08/18/16 15:05 Completed CBC WITH DIFF [HEME] Stat Lab 08/18/16 15:05 Completed CK PROFILE [SP CHEM] Stat Lab 08/18/16 15:05 Results CMP [COMPREHENSIVE METABOLIC PANEL] [CHEM] Stat Lab 08/18/16 15:05 Completed MAGNESIUM [CHEM] Stat Lab 08/18/16 15:05 Results PRO B-NATRIURETIC PEPTIDE Stat Lab 08/18/16 15:05 Received PROTIME WITH INR [COAG] Stat Lab 08/18/16 15:05 Received PTT [COAG] Stat Lab 08/18/16 15:05 Received TROPONIN T Stat Lab 08/18/16 06:57 Received URINALYSIS W/POSS RFLX CULT-1 [URINALYSIS] Stat Lab 08/18/16 15:43 Uncollected URINE DRUG SCREEN Stat Lab 08/18/16 15:43 Uncollected 0.9% Sodium Chloride Inj [Ns] 1,000 ml Med 08/18/16 15:43 Active IV 999 mls/hr Aspirin Med 08/18/16 14:57 Discontinued 325 mg PO NOW ONE Pulse Oximetry Stat Oth 08/18/16 14:57 Active Pulse Oximetry Stat Oth 08/18/16 15:43 Active EKG [EKG] Stat Ther 08/18/16 14:57 Draft [PLAN: LABS, FLUIDS, EKG, MONITOR PT Result Diagrams: 08/18/16 15:05 08/18/16 15:05 - XRAY 1 XRAY: Bilateral XRAY Study: Chest Impression: Normal XRAY Interpretation: NAD - CT/MRI 1 CT Study: Head Impression: Normal (No visible acute intracranial anatomy. no hemmprrhage or mass effect.- Dr. Bhatia(radiologsit)) CT Results: see impression - CONSULTS/PCP/HOSPITALIST Notification #1 *Consult/PCP/Hospitalist*: Dr. Cantrell Time Discussed: 18:16 Consult Disposition: Will see in ED, Admit - CHANGE OF SHIFT REPORT (ED Provider) Report Given and Care Transferred to:: Time of Transfer: 18:00 Items Pending: Labs Departure - Departure Date of Disposition Decision: 08/18/16 Time of Disposition Decision: 18:16 DIAGNOSIS: Palpitations, Falls, Generalized weakness Disposition: ADMITTED INPATIENT 09 Certified Medical Emergency: Emergent Condition: Stable Referrals and Follow-Ups: None,PCP [Primary Care Provider] - - Critical Care Note This patient required my direct & personal management of CC.: No This chart was documented by the indicated scribe, (Jenny Velasquez Scribe) and accurately reflects the services I performed and decisions made by me, Rena Latham MD, as attested by the provider's signature.
[2016-08-18] MEDS ORDERED: ZOFRAN IV PRN (21:58)
[2016-08-18] MEDS: LOVENOX SUBQ SCH (22:53)
[2016-08-18] MEDS: NS 1,000 ML IV SCH (22:53)
[2016-08-19] MEDS: ROBAXIN PO SCH ×2 (00:06→20:23)
[2016-08-19 01:08] LABS: CK INDEX 2.6 (0.0-2.5); CK-MB 7.36 ng/mL (0.0-5.0)
--- NOTE | 2016-08-19 05:09 | HISTORY AND PHYSICAL ---
PRIMARY CARE PROVIDER: Dr. Leo Campos. CHIEF COMPLAINT: Increased weakness and palpitations. HISTORY OF PRESENT ILLNESS: Ms. Rod is a 50-year-old female who was just recently admitted to the hospital for similar symptoms. She was admitted on 08/06/2016 and discharged on 08/08/2016. During this visit she did have symptoms of syncope and palpitations , hypokalemia. She was also treated for urinary tract infection and possible pneumonia. The patient reports that since being discharged approximately just under 2 weeks ago and, since arriving home, she has had just steady increased weakness. She reports that she does have a history of cerebral palsy which mainly affects her balance though she does use forearm crutches and a wheelchair when necessary at home, though reports that she has fallen a total of 6 times over the past 2 weeks. She reports that a few of these times, she has laid in the floor for few hours before someone was able to arrive to help her. She states that today that she did fall while trying to sit in her bath chair, stating that her legs became very weak and gave way. She also reports some symptoms of weakness upon standing at times. She reports that she is currently being treated for a superficial ulcer on her right lower extremity. She states that she has been seeing Dr. Waldron approximately every 6 weeks for this since April and that home health comes out and dresses her wound for which she also is wearing an Unna boot at this time. She states that her swelling in her bilateral lower extremities is slightly worse than normal, bur her wound has actually improved and is better than it has been previously. She does report approximately 1-2 episodes of diarrhea a day though states that this is normal for her given her history of irritable bowel syndrome. She denies any hematochezia or melena. She was recently treated with Cipro for a urinary tract infection, though at this time other than some intermittent low back pain she denies any urinary symptoms or fever. The patient states that she does live at home by herself and due to her increased weakness and multiple falls is having difficulty being able to take care of herself and perform her activities of daily living. She also reports that she did see Dr. Campos yesterday and that he discussed possibly placing her on a medication to decrease her heart rate as well as possible placement of a cardiac event monitor. It does appear, according to the patient, that she has recently had problems with tachycardia. Upon her last admission, her heart rate was elevated as well at 117. At this time the patient denies any headache, dizziness, visual disturbances, chest pain, shortness of breath, cough, abdominal pain, nausea, vomiting, dysuria. She does report the edema in her legs as well as her superficial ulcer wound to her right lower extremity. REVIEW OF SYSTEMS: A 12-point review of systems was conducted with the patient and all were negative except for pertinent positives mentioned above HPI. PAST MEDICAL HISTORY: 1. Bronchitis. 2. Cerebral palsy. 3. Obesity. 4. Hypothyroidism. 5. Gastroesophageal reflux disease. 6. Right lower extremity superficial ulcer. 7. Irritable bowel syndrome. 8. Migraines. PAST SURGICAL HISTORY: Hysterectomy. SOCIAL HISTORY: The patient reports that she smoked 2 packs per day for approximately 10 years though quit smoking 20 years ago. She denies any alcohol or illicit drug use. As previously mentioned, the patient currently does live alone and uses forearm crutches as well as wheelchair for assistance with ambulation and getting around as needed. FAMILY HISTORY: Positive for lung cancer in her father as well as COPD. ALLERGIES: Patient reports allergies to latex, Lorcet, morphine and prednisone. HOME MEDICATIONS: 1. Albuterol nebulizer 2.5 mg inhaled q.4 hours p.r.n. 2. Vitamin C 1000 mg p.o. daily. 3. Welchol 3750 mg p.o. at bedtime. 4. Faye 180 mg p.o. daily. 5. Lasix 20 mg p.o. daily. 6. Combivent Respimat inhaler 1 puff inhaled q.6 hours. 7. Synthroid 88 mcg p.o. daily. 8. Robaxin 750 mg p.o. at bedtime. 9. Singulair 10 mg p.o. daily. 10. Pravachol 40 mg p.o. daily. 11. Compazine 10 mg p.o. daily as needed. 12. Maxalt 5 mg p.o. as needed for migraine headache. DIAGNOSTIC DATA/LABORATORY RESULTS: White blood cell count 11.48, hemoglobin 12.1, hematocrit 37.6, platelet count 396,000. PT 10.5, INR 1, PTT 28.8. Sodium 136, potassium 3.4, chloride 100, bicarb 26, BUN 12, creatinine 0.7, glucose 75, calcium 9.1, magnesium 2.4. Liver function tests within normal limits. CK 84.18, CK index 3.4, CK-MB 14.04. Troponin less than 0.01. ProBNP 110. Urine drug screen was negative. Serum alcohol was 0. Urinalysis was obtained via catheter and was positive for ketones, trace leukocytes and greater than [address] head without contrast showed no visible acute intracranial anatomy, no hemorrhage or mass effect per Radiology. Chest x-ray, 2 views, showed no evidence of acute disease as per Radiology. EKG showed sinus tachycardia, nonspecific ST abnormality at a rate of 1, QTc of 432. PHYSICAL EXAMINATION: VITAL SIGNS: Temperature 97.8 degrees, heart rate 107, respirations 20, blood pressure 104/60, oxygen saturation is 98% room air. GENERAL: Ms. Rod is a pleasant 50-year-old female who was resting comfortably in the ER stretcher. She was in no acute distress. She was awake, alert and able to answer all questions appropriately. HEENT: Head is atraumatic, normocephalic. Pupils are equal, round, reactive to light, were 3 mm bilaterally and brisk. Oral mucosa is moist. NECK: Supple. Trachea midline. CARDIOVASCULAR: Patient has normal S1, S2. No murmurs, gallops, or rubs appreciated with a slightly tachycardic rate that is regular. PULMONARY: Patient has symmetrical chest expansion bilaterally. Lung sounds are clear to auscultation in bilateral full mahmood. ABDOMEN: Soft, nontender, nondistended. The patient does have a protuberant abdomen noted. Bowel sounds were present in all 4 quadrants and were normoactive. EXTREMITIES: The patient does have edema noted to bilateral lower extremities. This is approximately 1 to 2+. She does have a Unna boot noted to her right lower extremity. Pulse, motor and sensory are intact in all extremities. Pedal pulses are 3+ bilaterally. Capillary refill was less than 3. INTEGUMENTARY: The patient's skin is pink, warm, dry and intact except for a superficial ulcer noted to her right lower extremity. Upon examination, this is approximately just less than dime size though it does appear to be healing well. NEUROLOGICAL: Patient is alert and oriented to person, place, time, and situation. Cranial nerves 2-12 are grossly intact. She is able to move all 4 extremities though does have some difficulty lifting her bilateral lower extremities and does have what appears to be some generalized weakness noted as well. ASSESSMENT AND PLAN: 1. Weakness. This is uncertain etiology at this time though could be secondary to the patient's pravastatin. We have held this at this time. Other than her reported generalized weakness, she has no other neurological deficits noted. We have placed an order for the patient to receive a physical therapy evaluation and we will continue to follow. 2. Tachycardia. It does appear that the patient has had previous problems with this. This was present upon her last admission as well and the patient did report Dr. Campos has been evaluating her for this also. The patient does have a history of hypothyroidism. We will order a TSH level. She also takes Lasix, it could be that she is possibly intravascularly dry. We will give her some fluids and see if her tachycardia does improve and we will continue to follow. She will be placed on telemetry. Also, given her reported weakness palpitations, tachycardia, and diagnosis of rhabdomyolysis , we will continue with a series of cardiac enzymes and we will continue to follow closely. 3. Rhabdomyolysis. We will continue with fluid hydration with normal saline at 150 an hour x2 bags and will reevaluate this and monitor her CK levels. 4. Mild hypokalemia. The patient has already been treated in the ER with potassium chloride 40 mEq. We will repeat a BMP in the morning. 5. Hypothyroidism. We will continue her Synthroid. We have ordered for a TSH level to be drawn as well. 6. Cerebral palsy, aware. This appears to be stable at this time. 7. Hyperlipidemia. We will continue the patient's Welchol, though at this time given her increased weakness, we will hold her pravastatin. She will be placed on the medical floor with telemetry. She will have vital signs q.6 hours. Will do strict intake and output. She will be on a heart healthy diet. We have placed a case management and social media specialist consult for possible rehab placement. We have also placed a consult with wound care as well as Dr. Waldron who is managing her wound care. We will repeat a CBC, BMP, and magnesium in the morning. DVT prophylaxis provided with Lovenox 40 mg subcutaneously q.24 hours. Further orders and recommendations pending hospital course, diagnostic studies, and physician evaluation. Dictated by DORA Martinez for Main Mayo MD Seen,examined and discussed case with NARCOTICS AND/OR VICE DETECTIVE. cc: Main Mayo MD [facility]
[2016-08-19] MEDS: SYNTHROID PO SCH (06:10)
[2016-08-19] MEDS: NS 1,000 ML IV SCH (06:10)
[2016-08-19 07:14] LABS: MANUAL DIFF NEEDED? NO
[2016-08-19 07:25] LABS: BASO% 0.6 % (0.0-0.8); EOS# 0.11 X1000 (0.0-0.7); EOS% 2.1 % (0.0-10.0); HEMATOCRIT 32.2 % (37.0-47.0); HEMOGLOBIN 10.2 g/dL (12.0-16.0); LYMPH# 1.21 X1000 (1.2-3.4); LYMPH% 22.9 % (20.5-51.1); MCH 26.7 PG (27-31); MCHC 31.7 g/dL (33-37); MCV 84.3 FL (81-99); MONO# 0.55 X1000 (0.11-0.59); MONO% 10.4 % (1.7-9.3); MPV 9.6 FL (7.4-10.4); PLT 301 X1000 (130-400); RBC 3.82 XMIL (4.2-5.4)
[2016-08-19 07:41] LABS: AGAP 7; BUN 9 mg/dL (8-22); CALCIUM 7.9 mg/dL (8.8-10.2); CHLORIDE 109 mmol/L (98-107); COSMO 279; MAGNESIUM 2.1 mg/dL (1.5-2.7); POTASSIUM 3.6 mmol/L (3.5-5.1); SODIUM 141 mmol/L (136-145); TCO2 25 mmol/L (25-35)
[2016-08-19 08:08] LABS: CK INDEX 2.4 (0.0-2.5); CK-MB 4.33 ng/mL (0.0-5.0)
[2016-08-19] MEDS: SINGULAIR PO SCH (09:26)
[2016-08-19] MEDS: ALLEGRA PO SCH (09:26)
[2016-08-19] MEDS: VITAMIN C PO SCH (09:26)
--- NOTE | 2016-08-19 16:41 | CONSULTATION ---
DATE OF CONSULTATION: 08/19/2016 CHIEF COMPLAINT: Right lateral leg ulceration. HISTORY: A 50-year-old lady with a history of CP who has limited mobility. She does walk with crutches and does have a wheelchair as well. I have been following her for a right lateral calf ulceration, and has improved but has not completely healed. We have been using Unna boot therapy on her to keep the swelling out of her leg. She has been admitted in the past with cellulitis and swelling of the right lower extremity. Her current illness is related to recurrent urinary tract infection and weakness and syncope. OTHER MEDICAL PROBLEMS: Include obesity, hypothyroidism, gastroesophageal reflux, irritable bowel syndrome, migraines. PREVIOUS SURGERY: Includes a hysterectomy. MEDICATIONS: Listed. ALLERGIES: Include latex, Lorcet, morphine, and prednisone. SOCIAL HISTORY: She denies alcohol use, illicit drug use or smoking currently. FAMILY HISTORY: Pertinent for lung cancer and COPD. PHYSICAL EXAMINATION: Vital Signs: She is afebrile. Heart rate 107, respiratory rate 19, blood pressure 109/58. Chest: Bilateral breath sounds. Heart: Regular rate and rhythm. Abdomen: Soft. Extremities: She has bilateral pedal pulses. She has swelling but no significant erythema. A small ulceration is present in the right lateral calf. DIAGNOSTIC DATA: White count 5300, hemoglobin 10.2, hematocrit 32. CPK is down to 183, MB is down to 4.33. ASSESSMENT: 1. Right lateral calf ulceration with chronic leg swelling and venous insufficiency. 2. Some rhabdomyolysis that was light due to her falls and apparently laying on the floor, but this is resolving with normalization of her CPK. PLAN: The plan will be to leave her Unna boots off while in the hospital, clean the wound with Vashe, and then use Santyl on the wound and cover dressing. I will follow her along. cc: Grady Waldron MD
--- NOTE | 2016-08-19 17:38 | PROGRESS NOTE ---
DATE: 08/19/2016 SUBJECTIVE: This patient states that she is feeling a little bit better but she is still weak. She has been having diarrhea that started today. So I will ask for a C. diff stool test to rule out C. difficile colitis. She has been on antibiotics before and I placed this patient on antibiotics today. She is not complaining of belly pain though.HEENT: Head normocephalic. No trauma. PERRLA. Neck: Supple. No JVD. No masses. Central trachea. Chest: Clear to auscultation. No wheezing. No rales. Abdomen: Soft, protuberant and nontender, nondistended. Extremities: 1+ to 2+ lower extremity edema. She has on the right leg a mild superficial ulcer. She has chronic changes also at the level of the lower extremities. Neurological: The patient is alert and oriented x3. No focal deficits. LABORATORY: WBC 5, hemoglobin 10.2, hematocrit 32.2, platelets 301,000. Sodium 141, potassium 3.6, chloride 109, bicarbonate 25, BUN 9, creatinine 0.6, glucose 85, calcium 7.9, magnesium 2.1. TSH 4.6, but free T4 1.1. ASSESSMENT AND PLAN: 1. Weakness. We have a positive urine culture that showed gram-negative rods, and probably this weakness is related with this infection. This patient has been treated for UTI before and actually she was discharged at the beginning of this month with antibiotics. As per the patient, she has been taking her medications as prescribed. I have placed this patient on antibiotics today. Will monitor. 2. Tachycardia probably this is related with her infection and dehydration. At this moment the heart rate is in the low 100s and high 90s. Will monitor. 3. Mild rhabdomyolysis, she is getting fluids and the CK is going back down. We will continue the same management. 4. Mild hypokalemia resolved. 5. Hypothyroidism. Continue with Synthroid. 6. History of cerebral palsy. Aware. 7. Hyperlipidemia. Pravastatin has been stopped because she has been complaining of severe weakness. Probably this is not the main cause, we will keep an eye on this. 8. Diarrhea, started today, 3 episodes. I will ask for C. difficile toxin and antigen to rule out C. difficile colitis. cc: Matt Moreno MD
[2016-08-19] MEDS: ROCEPHIN 1 GM/NS 1 GM/50 ML IVPB IV SCH (18:00)
[2016-08-19] MEDS: WELCHOL PO SCH ×2 (20:30→21:02)
[2016-08-19] MEDS: LOVENOX SUBQ SCH (23:36)
[2016-08-20] MEDS: TYLENOL PO PRN ×2 (03:24→22:24)
[2016-08-20] MEDS: SYNTHROID PO SCH (06:05)
[2016-08-20] MEDS: ALLEGRA PO SCH (09:02)
[2016-08-20] MEDS: SANTYL OINT TOP SCH (09:02)
[2016-08-20] MEDS: SINGULAIR PO SCH (09:02)
[2016-08-20] MEDS: VITAMIN C PO SCH (09:02)
--- NOTE | 2016-08-20 14:07 | PROGRESS NOTE ---
DATE: 08/20/2016 SUBJECTIVE: This patient states that she is feeling much better, but she is still having severe weakness. We have a positive urine culture that showed E. coli sensitive to ceftriaxone. I will continue with the same management. I have placed an order for social contact worker to find a rehab center for this patient. OBJECTIVE: Vital Signs: Temperature 98 degrees, pulse 96, respiratory rate 20, blood pressure 129/58, oxygen saturation 96 on room air. HEENT: Head normocephalic. No trauma. PERRLA. Neck: Supple. No JVD. No masses. Central trachea. Chest: Clear to auscultation. No wheezing. No rales. Abdomen: Soft, nontender, nondistended. No hepatosplenomegaly. Extremities: There is 1+ lower extremity edema. She has on the right leg a mild superficial ulcer that looks clean. No signs of infection. She has also chronic changes at the level of the lower extremities. Neurological: The patient is alert and oriented x3. She moves all 4 extremities. LABORATORY: CK 100. ASSESSMENT AND PLAN: 1. Urinary tract infection. Continue with antibiotics. This patient has a positive urine culture that showed E. coli that is sensitive to ceftriaxone. We will continue with the same management for now. 2. Severe weakness. We have placed an order for social service to find a place for this patient for rehab. Continue with physical therapy. 3. Tachycardia. This is getting better. Likely secondary to dehydration and urine infection. 4. Mild rhabdomyolysis, resolved. 5. Mild hypokalemia, resolved. 6. Hypothyroidism. Continue with Synthroid. 7. History of cerebral palsy. Aware. 8. Hyperlipidemia. Continue the same management. Pravastatin has been stopped because she has been complaining of severe weakness. Probably this is not the main cause but we will keep an eye on this. 9. Diarrhea, resolved. cc: Matt Moreno MD
[2016-08-20] MEDS: ROCEPHIN 1 GM/NS 1 GM/50 ML IVPB IV SCH (17:33)
[2016-08-20] MEDS: ROBAXIN PO SCH (21:15)
[2016-08-20] MEDS: LOVENOX SUBQ SCH (21:15)
[2016-08-20] MEDS: WELCHOL PO SCH (21:15)
[2016-08-21] MEDS: SYNTHROID PO SCH (06:26)
[2016-08-21 07:08] LABS: MANUAL DIFF NEEDED? NO
[2016-08-21 07:13] LABS: BASO% 0.7 % (0.0-0.8); EOS# 0.23 X1000 (0.0-0.7); EOS% 4.1 % (0.0-10.0); HEMATOCRIT 34.8 % (37.0-47.0); IMM GRAN# 0.03 X1000 (0.0-0.04); IMM GRAN% 0.5 % (0.0-0.5); LYMPH# 1.19 X1000 (1.2-3.4); LYMPH% 21.1 % (20.5-51.1); MCH 26.7 PG (27-31); MCHC 31.6 g/dL (33-37); MCV 84.5 FL (81-99); MONO# 0.51 X1000 (0.11-0.59); MONO% 9.1 % (1.7-9.3); MPV 9.5 FL (7.4-10.4); NEUT% 64.5 % (42.2-75.2); PLT 332 X1000 (130-400); RBC 4.12 XMIL (4.2-5.4)
[2016-08-21 07:50] LABS: AGAP 13; BUN 9 mg/dL (8-22); CALCIUM 8.6 mg/dL (8.8-10.2); CHLORIDE 106 mmol/L (98-107); COSMO 278; SODIUM 140 mmol/L (136-145); TCO2 21 mmol/L (25-35)
[2016-08-21] MEDS: SANTYL OINT TOP SCH (09:01)
[2016-08-21] MEDS: VITAMIN C PO SCH (09:01)
[2016-08-21] MEDS: SINGULAIR PO SCH (09:01)
[2016-08-21] MEDS: ALLEGRA PO SCH (09:01)
[2016-08-21] MEDS: TYLENOL PO PRN (10:38)
--- NOTE | 2016-08-21 13:48 | PROGRESS NOTE ---
DATE: 08/21/2016 SUBJECTIVE: She is a patient of Dr. Leo Campos. Increased weakness and palpitations is what she came in with. She is a 50-year-old female with a past medical history of bronchitis, cerebral palsy, obesity, hypothyroidism, gastroesophageal reflux disease, right lower extremity, superficial ulcer, irritable bowel syndrome, and migraines. Apparently she has fallen several times. Was admitted for weakness of uncertain etiology, tachycardia, rhabdomyolysis and they did hydrate her, hypokalemia, hypothyroidism. She apparently is feeling better and doing better. Dr. Waldron was consulted. Right calf ulceration with chronic leg swelling and venous insufficiency, some rhabdomyolysis likely due to her falls, apparently lying on the floor, but these have normalized. ASSESSMENT AND PLAN: 1. Dr. Waldron is going to leave the Unna boots off and continue topical care of the wound using Santyl on the wound but seems to be making improvement. 2. Severe weakness. Continue to work with physical therapy. 3. Tachycardia. I think this is nonspecific. It seems to be getting better. 4. Mild rhabdomyolysis which is improving. 5. Hypokalemia. Continue supplement. 6. History of hypothyroidism. 7. History of cerebral palsy, aware. 8. Appears that left the diarrhea has improved. So continue her present medications. cc: Boo Villafana MD
[2016-08-21] MEDS: ROCEPHIN 1 GM/NS 1 GM/50 ML IVPB IV SCH (16:41)
[2016-08-21] MEDS: ROBAXIN PO SCH (20:39)
[2016-08-21] MEDS: WELCHOL PO SCH (20:40)
[2016-08-21] MEDS: DUONEB (A & A) INH PRN (22:58)
[2016-08-22] MEDS: LOVENOX SUBQ SCH ×2 (01:19→22:43)
[2016-08-22] MEDS: SYNTHROID PO SCH (06:14)
[2016-08-22] MEDS: DUONEB (A & A) INH PRN ×4 (06:21→23:44)
[2016-08-22] MEDS: ALLEGRA PO SCH (10:29)
[2016-08-22] MEDS: VITAMIN C PO SCH (10:29)
[2016-08-22] MEDS: SANTYL OINT TOP SCH (10:29)
[2016-08-22] MEDS: SINGULAIR PO SCH (10:29)
[2016-08-22] MEDS: ROCEPHIN 1 GM/NS 1 GM/50 ML IVPB IV SCH (17:04)
[2016-08-22] MEDS: ROBAXIN PO SCH (22:41)
[2016-08-22] MEDS: WELCHOL PO SCH (22:42)
[2016-08-22] MEDS: TYLENOL PO PRN (23:16)
--- NOTE | 2016-08-23 03:38 | PROGRESS NOTE ---
DATE: 08/22/2016 SUBJECTIVE: Ms. Rod is feeling better, stronger, and doing better. Legs look better and eating well. PHYSICAL EXAMINATION: Vital Signs: Temperature 98.1 degrees, pulse 109, respirations 22, blood pressure 136/68. HEENT: Pupils are equal and round. Lungs: Are clear in all lung mahmood. Cardiovascular Examination: Regular rhythm and rate without murmur or S3. Abdomen: Soft. Skin: Is warm and dry. Is and Os: Good urine output. LAB: Reviewed from the . Hemoglobin stable at 11. Electrolytes look good. Creatinine 0.6. ASSESSMENT AND PLAN: 1. Legs are doing better. Unna boots are off. Wound care. Improving. 2. Severe weakness. Continue physical therapy. Making improvement. 3. Tachycardia, nonspecific. 4. Mild rhabdomyolysis, which is resolved. 5. Hypokalemia, supplemented. 6. Hypothyroidism. 7. History of cerebral palsy, where hopefully soon to go home. 8. Review of her orders. She is still on ceftriaxone. Dr. Waldron has followed her. She has a right lateral calf ulceration, chronic leg swelling, and venous insufficiency. We will talk about discharge soon hopefully. She had that grew out E. coli but there were blood cultures were negative. cc: Boo Villafana MD
[2016-08-23] MEDS: SYNTHROID PO SCH (06:31)
[2016-08-23 07:29] VITALS: BP 124/65
[2016-08-23] MEDS: VITAMIN C PO SCH (09:08)
[2016-08-23] MEDS: SINGULAIR PO SCH (09:08)
[2016-08-23] MEDS: ALLEGRA PO SCH (09:08)
[2016-08-23] MEDS: SANTYL OINT TOP SCH (09:10)
[2016-08-23] MEDS: DUONEB (A & A) INH PRN (09:51)
--- NOTE | 2016-08-23 10:04 | DISCHARGE SUMMARY ---
ADMISSION DATE: 08/18/2016 DISCHARGE DATE: 08/23/2016 SUMMARY: A 51-year-old recently admitted to the hospital for similar symptoms, increased weakness, and palpitations admitted on 08/06/2016 and discharged on 08/08/2016. During this visit, she did have some symptoms of syncope, palpitations, and hypokalemia. She was treated for urinary tract infection and possible pneumonia. The patient reports, since discharge just under 2 weeks ago arriving home, she has had steady increase in weakness. She has a history of cerebral palsy which mainly affects her balance though she does have forearm crutches and wheelchair when necessary at home. She has fallen a total 6 times in the past 2 weeks. Before this admission, she did report a few of these time she laid on the floor for an extended period of time. When she presented, she did fall while trying to sit. On that day, she was trying to sit in her bath chair stating that her legs became very weak and gave way. She had some symptoms of weakness when she would be standing felt. It felt like her legs would gave way. She is currently being treated for superficial ulcer in the right lower extremity and been seeing Dr. [facility]ron [facility] 6 weeks since April. She has had swelling in bilateral lower extremities which is slightly worse than normal and the wound has actually been improving. She does report 1-2 weeks of diarrhea and has a history of irritable bowel. She denied any hematochezia or melena. She had been treated recently with Cipro for urinary tract infection. PAST MEDICAL HISTORY: Reviewed. 1. Bronchitis. 2. Cerebral palsy. 3. Obesity. 4. Hypothyroidism. 5. Gastroesophageal reflux disease. 6. Right lower extremity superficial ulcer. 7. Irritable bowel syndrome. 8. Migraine headaches. MEDICATIONS: I reviewed her list of medications. She was admitted with weakness, uncertain etiology, and they did I think, hold her Pravastatin. She had some tachycardia for which they gave her some fluids. They have checked her T4 and TSH level and felt she had some mild rhabdomyolysis which may have been from lying on the floor for an extended period of time and mild hypokalemia. Her thyroid was mildly low, so that was adjusted and she showed steady improvement with topical wound care. Physical therapy helping with her strength. [place] like she was ready to go to rehab on 08/23/2016. DISCHARGE MEDICATIONS: 1. DuoNebs as needed. 2. Vitamin C 500 mg a day. 3. We can stop her Rocephin which she was getting 1 g q. 24 hours. 4. Welchol 3,750 mg p.o. at bedtime. 5. She is getting topical Santyl ointment. 6. Faye 180 mg daily. 7. Synthroid 88 mcg daily. 8. Robaxin 750 mg at bedtime. 9. Singulair 10 mg a day. cc: Boo Villafana MD
== END 2016-08-23 11:50 ==
LOC: SUPCPDRO → ED 14:36 → SUATTDRO 21:28 → 3N 21:28
PROVIDERS: ATTEND Emergency Medicine

== ENCOUNTER 2018-02-03 18:18 | Inpatient (IN) ==
--- NOTE | 2018-02-03 18:46 | Diag Imaging Result Doc PS360 ---
EXAM: CHEST-1 VIEW INDICATION: cough TECHNIQUE: One view COMPARISON: 08/18/2016 FINDINGS: Perihilar lung markings are mildly prominent, which may indicate bronchitis. The lungs are grossly clear, otherwise. There is no discrete pleural fluid collection or pneumothorax. Cardiac silhouette is unremarkable. IMPRESSION: Mildly prominent perihilar lung markings, which can indicate bronchitis. Electronically signed by Yanick Pedroza 02/03/2018 6:43 PM
[2018-02-03] MEDS ORDERED: PULMICORT INH ONE (19:53)
[2018-02-03] MEDS ORDERED: DUONEB (A & A) INH ONE (19:53)
[2018-02-03] MEDS ORDERED: SOLU-MEDROL IV ONE (19:54)
[2018-02-03 20:06] LABS: AGAP 13; BUN 7 mg/dL (8-22); CALCIUM 8.7 mg/dL (8.8-10.2); CHLORIDE 102 mmol/L (98-107); COSMO 279; CREATININE 0.7 mg/dL (0.5-0.9); ESTIMATED GFR > 60; GLUCOSE 92 mg/dL (70-104); POTASSIUM 3.8 mmol/L (3.5-5.1); SODIUM 141 mmol/L (136-145); TCO2 26 mmol/L (25-35)
[2018-02-03 20:45] LABS: BASO# 0.02 X1000 (0.0-0.2); BASO% 0.5 % (0.0-0.8); EOS# 0.03 X1000 (0.0-0.7); EOS% 0.7 % (0.0-10.0); HEMOGLOBIN 14.1 g/dL (12.0-16.0); LYMPH# 0.55 X1000 (1.2-3.4); LYMPH% 12.9 % (20.5-51.1); MCV 87.5 FL (81-99); MONO# 0.46 X1000 (0.11-0.59); MONO% 10.8 % (1.7-9.3); MPV 9.3 FL (7.4-10.4); NEUT# 3.19 X1000 (1.4-6.5); NEUT% 75.1 % (42.2-75.2); PLT 261 X1000 (130-400); RBC 5.03 XMIL (4.2-5.4); RDW 14.7 % (11.5-14.5); WBC 4.25 X1000 (4.8-10.8)
[2018-02-03] MEDS ORDERED: ROCEPHIN IV ONE (22:51)
[2018-02-03] MEDS ORDERED: STERILE WATER INJ. ONE (22:58)
[2018-02-03] MEDS ORDERED: ALBUTEROL NEB INH ONE (23:07)
[2018-02-04] MEDS ORDERED: ZOFRAN IV PRN (02:04)
[2018-02-04] MEDS ORDERED: CALMOSEPTINE OINTMENT TOP PRN (02:28)
[2018-02-04] MEDS: ROBAXIN PO PRN (03:23)
[2018-02-04] MEDS: DUONEB (A & A) INH SCH ×6 (03:54→23:03)
--- NOTE | 2018-02-04 04:03 | HISTORY AND PHYSICAL ---
PRIMARY CARE PHYSICIAN: Dr. Leo Campos. CHIEF COMPLAINT: Shortness of breath, coughing. HISTORY OF PRESENTING ILLNESS: A 52-year-old obese female with a history of cerebral palsy, chronic lower extremity lymphedema and hyperlipidemia, who had presented to emergency department with several days history of having shortness of breath, difficulty breathing and coughing. She was evaluated in the emergency department. She continued to have cough and wheezing despite receiving nebulizer treatments. She was also desatting to oxygen level of 88%. Due to her current findings, it was thought that we will place her for observation for further evaluation. At the time of my examination, she had denied any headache, nausea, vomiting, diarrhea, chest pain, hemoptysis, melena, but complained of shortness of breath and coughing. PAST MEDICAL HISTORY: Includes cerebral palsy, lymphedema, hyperlipidemia. PAST SURGICAL HISTORY: Right knee surgery, hysterectomy. ALLERGIES: Morphine, latex, hydrocodone. CURRENT MEDICATIONS: As listed in the medication reconciliation sheet. SOCIAL HISTORY: No history of smoking. Admits to social alcohol use. Denies any illicit drug use. FAMILY HISTORY: No history of coronary artery disease. REVIEW OF SYSTEMS: Fourteen point review of systems as listed in HPI. Other systems negative. PHYSICAL EXAMINATION: GENERAL: Cooperative, friendly, obese female. She is resting more comfortably now. VITAL SIGNS: Temperature 99.3 degrees, pulse 101, respirations 20, blood pressure 130/68. HEENT: Atraumatic, normocephalic. Extraocular movements intact. PERRLA. NECK: No masses. CHEST: Scattered wheezes. CARDIOVASCULAR: Regular rate and rhythm. ABDOMEN: Soft, positive bowel sounds. EXTREMITIES: +4 edema. NEUROLOGIC: She is awake, alert, oriented x3. GENITOURINARY: No bladder distention. SKIN: Warm. LABORATORIES AND STUDIES: WBC 4.25, hemoglobin 14.1, hematocrit 44.0, platelets 261,000. Sodium 141, potassium 3.8, chloride 102, CO2 26, BUN is 7, creatinine 0.7, glucose is 92. ASSESSMENT: A 52-year-old obese female with a history of cerebral palsy, chronic lower extremity lymphedema and hyperlipidemia, who had presented to the emergency department with several days history of having cough, wheezing and shortness of breath. She was evaluated in the emergency department. Due to presenting symptoms, we will place her for observation for further evaluation and management. 1. Asthmatic bronchitis. 2. Chronic lower extremity lymphedema. 3. Cerebral palsy. 4. Hyperlipidemia. PLAN: 1. We will admit patient to medical floor with telemetry. 2. We will continue with DuoNebs q.4 hours. 3. We will restart her other home medications. 4. We will continue to follow and reassess. Make further recommendation based on patient's clinical course. cc: Shelton Castellon MD MTDD
--- NOTE | 2018-02-04 04:32 | PROVIDER DOCUMENTATION ---
This chart was entered by Genny Johnson Scribe, acting as scribe for Natalee Stallworth MD. HPI-General Adult - General Chief Complaint: Shortness of Breath Stated Complaint: SOB Time Seen by Provider: 02/03/18 19:43 Source: patient Allergies/Adverse Reactions: Patient Allergies Allergy/AdvReac Type Severity Reaction Status Date / Time latex Allergy RASH Verified 02/03/18 20:10 hydrocodone bitartrate * AdvReac ITCHING Verified 02/03/18 20:10 [From Lorcet (hydrocodone)] morphine AdvReac ITCHING Verified 02/03/18 20:10 prednisone AdvReac Unknown Verified 02/03/18 20:10 Home Medications: Home Medication List Medication Instructions Recorded Confirmed Last Taken Type Albuterol [Albuterol Neb] 2.5 mg INH Q4H PRN PRN 03/31/16 02/03/18 08/06/16 History Colesevelam HCl [Welchol] 3,750 mg PO QHS 03/31/16 02/03/18 02/02/18 History Fexofenadine [Faye] 180 mg PO DAILY 03/31/16 02/03/18 02/03/18 History Ipratropium/Albuterol INH 1 puff INH RTQ6H PRN 03/31/16 02/03/18 02/03/18 History [Combivent Respimat Inhaler] Methocarbamol [Robaxin-750] 750 mg PO Q6H PRN PRN 03/31/16 02/03/18 01/31/18 History Ascorbic Acid [Vitamin C] 1 tab PO DAILY 08/07/16 02/03/18 08/06/16 08:00 History Acetaminophen [Tylenol] 650 mg PO Q6H PRN PRN #0 tablet 08/23/16 02/03/18 Unknown Rx Albuterol 2.5MG/Ipratrop 0.5MG 3 ml INH Q6H PRN PRN #0 neb 08/23/16 02/03/18 Unknown Rx [Duoneb (A & A)] ATORVAstatin [Lipitor] 1 tab PO QHS 02/03/18 02/03/18 02/02/18 History Fluticasone 50 Mcg Nasal [place] 1 spray INH BID PRN 02/03/18 02/03/1818 History [Flonase] Ibuprofen [Motrin] 1 tab PO TID PRN 02/03/18 02/03/18 02/03/18 History Levothyroxine [Synthroid] 1 tab PO QAM 02/03/18 02/03/18 02/03/18 History Loperamide [Imodium] 2 - 4 cap PO Q12H PRN PRN 02/03/18 02/03/18 02/03/18 History Omeprazole [Prilosec] 1 cap PO QAM 02/03/18 02/03/18 Unknown History Rizatriptan [Maxalt] 1 tab PO DAILY PRN 02/03/18 02/03/18 Unknown History - History of Present Illness -Gen Adult Nature of Presenting Problems: 52 y/o female presents to ED with SOB, fever, and cough onset 3 days ago. EMS reports 90% O2 sat on room air. Lymphedema with scaly, erythematous skin, expiratory wheezing, and prolonged expiration upon examination. Pt is alert and oriented. Location of Pain/Injury: reports: none Pain Radiation: reports: no radiation Quality of Pain: reports: none Severity: reports: mild Onset/Duration: reports: 3 days ago Timing: reports: still present Context/Activities at Onset: reports: none Modifying Factors: improves with: nothing Associated Symptoms: reports: cough, fever/chills, shortness of breath Similar Symptoms Previously?: No Recently seen or treated by another doctor?: No Review of Systems - Adult - REVIEW OF SYSTEMS - ADULT Constitutional: reports: fever. denies: chills Eyes: reports: no symptoms reported Ears, Nose, Mouth & Throat: reports: no symptoms reported Cardiovascular: denies: chest pain, palpitations Respiratory: reports: cough, shortness of breath Gastrointestinal: denies: abdominal pain, diarrhea, nausea, vomiting Genitourinary: reports: no symptoms reported Musculoskeletal: denies: back pain, joint pain Integumentary: reports: no symptoms reported Neurological: denies: dizziness/vertigo, seizure Psychiatric: reports: no symptoms reported Endocrine: reports: no symptoms reported Hematologic/Lymphatic: reports: no symptoms reported Allergic/Immunologic: reports: no symptoms reported All Other Systems: Reviewed and Negative Past History - Adult - PAST MEDICAL HISTORY-ADULT Review of Records: reports: Old Records Reviewed, Nursing Assessment Review, Medications Reviewed Major Childhood Illnesses: reports: denies history Cardiovascular: reports: denies history Respiratory: reports: denies history Gastrointestinal: reports: denies history, IBS Obstetrical/Gynecological: reports: denies history Genitourinary: reports: denies history Musculoskeletal: reports: arthritis, chronic pain, other (cerebral palsy) Neurological: reports: other (cerebral palsy) Psychiatric: reports: denies history Endocrine/Immune: reports: thyroid disorder (hypo) Other Conditions: reports: denies history, other (lymphedema) - PRIOR SURGERIES/PROCEDURES Surgical/Procedure History: reports: hysterectomy, orthopedic (extremity) (knees ; legs) - IMMUNIZATION STATUS Childhood Immunizations: See Nurse Assessment Flu Vaccine: See Nurse Assessment - FAMILY HISTORY Family History: reviewed, not pertinent - SOCIAL HISTORY Smoking: quit greater than 1 year Substance Use: none/never Alcohol Use Frequency: occasionally Living Situation: family Physical Exam-General - PHYSICAL EXAM-ADULT Initial Vital Signs Reviewed: Yes - CONSTITUTIONAL General Appearance: appears well, alert, no apparent distress - EYES Eyes: PERRL/EOMI, pink conjunctivae - HEAD, EARS, NOSE, MOUTH & THROAT HENMT: normocephalic/atraumatic, moist mucous membranes, normal ENT inspection - NECK Neck: non-tender, full range of motion - RESPIRATORY Respiratory: chest non-tender, wheezing (expiratory), prolonged expiration - CARDIOVASCULAR Cardiovascular: normal peripheral pulses, regular rate, rhythm - GASTROINTESTINAL (ABDOMEN) Abdominal Exam: normal bowel sounds, non tender, soft - MUSCULOSKELETAL Back Exam: normal inspection, no CVA tenderness Extremity: normal range of motion, non-tender, normal gait - SKIN Integumentary: normal color, warm/dry, other (Lymphedema with scaly, erythematous skin) - NEUROLOGIC Neurologic: grossly normal - PSYCHIATRIC Psych/Mental Status: normal mood/affect, normal thought content, normal thought process Progress - PLAN OF CARE/RESULTS Progress/Plan/Lab Results: Vital Signs - 8 hr 02/03/18 18:19 Temperature 99.3 F Pulse Rate 101 H Respiratory Rate 20 Blood Pressure 130/68 O2 Sat by Pulse Oximetry 96 Laboratory Results - last 24 hr 02/03/18 18:16 WBC Cancelled RBC Cancelled Hgb Cancelled Hct Cancelled MCV Cancelled MCH Cancelled MCHC Cancelled RDW Std Deviation Cancelled Plt Count Cancelled MPV Cancelled Immature Gran % (Auto) Cancelled Neut % (Auto) Cancelled Lymph % (Auto) Cancelled [place] % (Auto) Cancelled Eos % (Auto) Cancelled Baso % (Auto) Cancelled Immature Gran # (Auto) Cancelled Neut # (Auto) Cancelled Lymph # (Auto) Cancelled [place] # (Auto) Cancelled Eos # (Auto) Cancelled Baso # (Auto) Cancelled Corrected WBC (Man) Cancelled Orders Category Date Time Status CHEST-1 VIEW [RAD] Stat Exams 02/03/18 18:22 Completed BASIC METABOLIC PANEL [CHEM] Stat Lab 02/03/18 19:25 Received CBC WITH DIFF [HEME] Stat Lab 02/03/18 19:03 Ordered EKG [EKG] Stat Ther 02/03/18 18:24 Ordered Result Diagrams: 02/03/18 19:25 02/03/18 19:25 - EKG 1 Time of EKG reading by physician:: 18:19 EKG Read and Signed by:: Chicho Lopez EKG Interpretation (*Must complete 3 of following elements*): Normal Rate: 103 Rhythm: Sinus tach [place]: normal QRS: normal HI Interval: normal ST Wave: normal - XRAY 1 XRAY Study: Chest Impression: Abnormal (FINDINGS: Perihilar lung markings are mildly prominent, which may indicate bronchitis. The lungs are grossly clear, otherwise. There is no discrete pleural fluid collection or pneumothorax. Cardiac silhouette is unremarkable. IMPRESSION: Mildly prominent perihilar lung markings, which can indicate bronchitis. Electronically signed by Yanick Pedroza 02/03/2018 6: 43 PM) Departure - Departure Date of Disposition Decision: 02/04/18 Time of Disposition Decision: 03:00 DIAGNOSIS: Bronchitis, Hypoxia Disposition: ADMITTED INPATIENT 09 Certified Medical Emergency: Emergent Condition: Fair - Critical Care Note This patient required my direct & personal management of CC.: Yes Attestation - Physician/ KEVIN Attestation Patient care was provided by Advanced Practice Provider:: No The physician spent face to face time with patient:: Yes Advanced Practice Provider documentation review:: Supervising physician onsite and consulted in the evaluation and care of this patient. The physician did have a face to face encounter with the patient. This chart was documented by the indicated scribe, (Alex,Genny F, Scribe) and accurately reflects the services I performed and decisions made by me, Natalee Stallworth MD, as attested by the provider's signature.
[2018-02-04] MEDS ORDERED: MOTRIN PO ONE (05:28)
[2018-02-04] MEDS: SYNTHROID PO SCH ×2 (05:58→06:00)
[2018-02-04] MEDS: PRILOSEC PO SCH ×2 (05:58→06:00)
[2018-02-04] MEDS: VITAMIN C PO SCH (09:08)
--- NOTE | 2018-02-04 12:35 | PROGRESS NOTE ---
DATE: 02/04/2018 SUBJECTIVE: Overnight she was admitted for acute bronchitis. In the morning she is feeling much better. She is still feeling short of breath. She does not use oxygen at home. Her cough has decreased. We discussed about getting sputum sample. We also discussed about starting her on Symbicort. OBJECTIVE: Vital signs: Temperature of 98.9 degrees, pulse 106 per minute, blood pressure 148/72, saturating 92 to 95% on 3 L nasal cannula. General: Appears morbidly obese, in mild distress because of shortness of breath. HEENT: Oral cavity is moist. Cardiovascular: She has tachycardia. S1, S2 normal. No murmur, rub, or gallop. Respiratory: Air entry bilaterally decreased with wheezes, end-expiratory. Abdomen: Obese. Extremities: Extreme lymphedema affecting bilateral lower extremities, which appears chronic. LABS: Suggestive off normal WBC count and normal electrolytes. MICROBIOLOGY DATA: None. IMAGING: Imaging On admission had detected perihilar lung markings suggestive of bronchitis. ASSESSMENT AND PLAN: 1. Acute bronchitis. Could be viral or allergic as she previously has had a history of allergy bronchitis. Continue albuterol ipratropium nebulization. Start patient on Symbicort as well. If she continues to wheeze, tomorrow I may consider starting her on prednisone. She had received 1 dose of prednisone IV overnight and she states that she does not like prednisone as it makes her psychotic. Follow up with sputum culture sensitivity. Though chest x-ray did not detect any evident consolidation, considering her body habitus the lower lung zones were not clearly distinctly visible to me. 2. History of hypothyroidism. Continue levothyroxine. 3. History of hyperlipidemia. Continue atorvastatin and colesevelam. 4. History of seasonal allergies. Continue home fexofenadine. 5. Morbid obesity. Aware. 6. Others. Continue home omeprazole for GERD and methocarbamol for muscle spasms. DISPOSITION: The patient remains inside the hospital. Plan of care was discussed with her. All of her questions have been answered. cc: Be Lira MD
[2018-02-04] MEDS: SYMBICORT 80/4.5 MICROGM INHALER INH SCH ×2 (12:45→19:30)
[2018-02-04] MEDS: ALLEGRA PO SCH (20:12)
[2018-02-04] MEDS: LIPITOR PO SCH (20:12)
[2018-02-04] MEDS: WELCHOL PO SCH (20:12)
[2018-02-05] MEDS: DUONEB (A & A) INH SCH ×6 (02:48→23:36)
[2018-02-05] MEDS ORDERED: MOTRIN PO ONE (03:01)
[2018-02-05] MEDS: PRILOSEC PO SCH (06:11)
[2018-02-05] MEDS: SYNTHROID PO SCH (06:11)
--- NOTE | 2018-02-05 07:09 | EKG Report ---
Test Performed on : 02/04/2018 12:50:56 PM Test Reason : Tachycardia Blood Pressure : / mmHG Vent. Rate : 106 BPM Atrial Rate : 106 BPM P-R Int : 120 ms QRS Dur : 078 ms QT Int : 336 ms P-R-T Axes : 034 035 033 degrees QTc Int : 446 ms Sinus tachycardia. Nonspecific ST abnormality Abnormal ECG When compared with ECG of 03-FEB-2018 18:19, (Unconfirmed) No significant change was found Confirmed by Ledy BARKER, Boo Hay ([id number]) on 02/05/2018 9:44:56 AM
[2018-02-05 07:15] LABS: BASO# 0.01 X1000 (0.0-0.2); BASO% 0.1 % (0.0-0.8); EOS# 0.01 X1000 (0.0-0.7); EOS% 0.1 % (0.0-10.0); HEMOGLOBIN 12.5 g/dL (12.0-16.0); IMM GRAN# 0.02 X1000 (0.0-0.04); IMM GRAN% 0.2 % (0.0-0.5); LYMPH% 18.5 % (20.5-51.1); MCH 28.5 PG (27-31); MCHC 32.1 g/dL (33-37); MCV 88.8 FL (81-99); MONO# 0.61 X1000 (0.11-0.59); MONO% 7.5 % (1.7-9.3); MPV 9.2 FL (7.4-10.4); NEUT# 5.94 X1000 (1.4-6.5); NEUT% 73.6 % (42.2-75.2); PLT 249 X1000 (130-400); RBC 4.39 XMIL (4.2-5.4); RDW 14.7 % (11.5-14.5); WBC 8.09 X1000 (4.8-10.8)
--- NOTE | 2018-02-05 07:16 | EKG Report ---
Test Performed on : 02/03/2018 6:19:22 PM Test Reason : cough Blood Pressure : / mmHG Vent. Rate : 103 BPM Atrial Rate : 103 BPM P-R Int : 114 ms QRS Dur : 076 ms QT Int : 320 ms P-R-T Axes : 008 013 002 degrees QTc Int : 419 ms Sinus tachycardia. Otherwise normal ECG When compared with ECG of 18-AUG-2016 14:50, No significant change was found Unconfirmed Result
[2018-02-05] MEDS: SYMBICORT 80/4.5 MICROGM INHALER INH SCH ×2 (08:02→19:17)
[2018-02-05] MEDS: VITAMIN C PO SCH (09:32)
[2018-02-05] MEDS ORDERED: VANCOMYCIN IV PER PHARMACY MISC SCH (15:45)
--- NOTE | 2018-02-05 16:53 | PROGRESS NOTE ---
DATE: 02/05/2018 Overnight no acute events. Her vitals were unremarkable. The sputum culture was pending. SUBJECTIVE: She is feeling the same as yesterday, is feeling short of breath and feels a little congested. OBJECTIVE: Vital signs: Temperature of 97.4, pulse 95 per minute, blood pressure 150/60, saturating 96% on 2 L nasal cannula. She does not use home oxygen. General: Appears morbidly obese, appears tachypneic. Oral cavity moist. Air entry bilaterally equal with prolonged expiratory phase and end-expiratory wheezes, no rhonchi. S1, S2 normal. Tachycardic. No murmur or gallop. Abdomen: Is obese, nontender. Severe lymphedema affecting bilateral lower extremities. Neurologic: Alert, oriented x3. LABS: Today suggestive of stable hemoglobin, hematocrit, platelet count. No BMP. ASSESSMENT AND PLAN: 1. Acute bronchitis with history of multiple allergies. She might have undiagnosed adult onset asthma however she does not have a formal diagnosis of it. Continue albuterol ipratropium nebulization. Start patient on intravenous steroids considering persistent wheezing. Follow up sputum culture, sensitivity. Start patient on intravenous antibiotics considering persistent hypoxia. 2. History of hypothyroidism. Continue levothyroxine. 3. History of hyperlipidemia. Continue atorvastatin and Colesevelam. 4. History of seasonal allergies. Continue home fexofenadine. 5. Morbid obesity aware. 6. Patient remains inside the hospital for persistent respiratory distress. Plan of care were discussed with patient. All of her questions have been answered. cc: MD KHURRAM Clark
[2018-02-05] MEDS: SOLU-MEDROL IV SCH ×2 (18:13→23:05)
[2018-02-05] MEDS: LEVAQUIN 750 MG/D5W 750 MG/150 ML IVPB IV SCH (18:13)
[2018-02-05] MEDS: PROTONIX IV SCH (18:13)
[2018-02-05] MEDS: SODIUM CHLORIDE 0.9% INJ SCH (18:14)
[2018-02-05] MEDS: WELCHOL PO SCH (20:35)
[2018-02-05] MEDS: LIPITOR PO SCH (20:35)
[2018-02-05] MEDS: ALLEGRA PO SCH (20:35)
[2018-02-06] MEDS: DUONEB (A & A) INH SCH ×6 (03:33→23:40)
[2018-02-06] MEDS: SYNTHROID PO SCH (06:06)
[2018-02-06] MEDS: SOLU-MEDROL IV SCH ×2 (07:58→14:48)
[2018-02-06] MEDS: VITAMIN C PO SCH (07:59)
[2018-02-06] MEDS: SYMBICORT 80/4.5 MICROGM INHALER INH SCH ×2 (08:18→19:40)
[2018-02-06] MEDS ORDERED: LASIX IV ONE (13:30)
--- NOTE | 2018-02-06 13:57 | PROGRESS NOTE ---
DATE: 02/06/2018 OVERNIGHT: She was started on intravenous steroids, intravenous antibiotics. She has been tolerating those things well. SUBJECTIVE: She is feeling a little better than yesterday. She states her wheezing has significantly gone down. However, she is still feeling short of breath. I discussed with her about her course, and that I am expecting improvement in the next 24 hours. OBJECTIVE: Vital Signs: Temperature of 97.5 degrees, pulse 93 per minute, blood pressure 140/86, saturating 95% on 2 to 3 L nasal cannula. General examination: On physical examination, the patient appears tachypneic, morbidly obese. Mouth: Oral cavity is moist. Respiratory: Air entry bilaterally equal with prolonged expiratory phase and occasional wheezes, which are less as compared to on arrival. Cardiovascular: S1, S2 normal. Tachycardic. No murmur, rub, or gallop. Abdomen: Obese, soft, nontender. Extremities: Chronically appearing bilateral lower extremity edema. Neurologic: Alert and oriented x3. MICROBIOLOGY: Sputum culture no growth to date. IMAGING STUDIES: Reports no new imaging data today. ASSESSMENT AND PLAN: 1. Acute bronchitis with history of multiple allergies. She might have undiagnosed adult-onset asthma, though does not have a formal diagnosis. Continue albuterol ipratropium nebulization. Continue intravenous steroids. Continue intravenous levofloxacin; day one is 02/05/2018. Follow up final sputum culture and sensitivity results. 2. Acute hypoxic respiratory failure. Continue oxygenation to maintain saturation more than 94%. New one-time dose of 80 mg of intravenous Lasix. 3. History of hypothyroidism. Continue levothyroxine. 4. History of hyperlipidemia. Continue home atorvastatin and colesevelam. 5. History of seasonal allergy. Continue home fexofenadine. 6. Morbid obesity. Aware. 7. History of chronic back pain. Continue ibuprofen. Chronic lymphadema with h/ o cerebral palsy: Aware. 8. Gastrointestinal prophylaxis to avoid steroid-induced acute gastritis. Continue pantoprazole intravenously. 9. Disposition: Patient remains inside the hospital for persistent shortness of breath. If she starts feeling better, my plan is to have physical therapy evaluate her on and, depending on her course plan, discharge to rehabilitation later this week. Plan of care was discussed with her. All of her questions have been answered. cc: Be Lira MD [facility]
[2018-02-06] MEDS: LEVAQUIN 750 MG/D5W 750 MG/150 ML IVPB IV SCH (14:42)
[2018-02-06] MEDS: PROTONIX IV SCH (14:48)
[2018-02-06] MEDS: SODIUM CHLORIDE 0.9% INJ SCH (14:48)
[2018-02-06] MEDS: ALLEGRA PO SCH (20:44)
[2018-02-06] MEDS: WELCHOL PO SCH (20:44)
[2018-02-06] MEDS: LIPITOR PO SCH (20:44)
[2018-02-07] MEDS: SOLU-MEDROL IV SCH ×4 (00:10→22:38)
[2018-02-07] MEDS: MOTRIN PO PRN (02:03)
[2018-02-07] MEDS: DUONEB (A & A) INH SCH ×6 (03:40→23:20)
[2018-02-07] MEDS: SYNTHROID PO SCH (06:16)
[2018-02-07 06:56] LABS: HEMATOCRIT 40.4 % (37.0-47.0); HEMOGLOBIN 13.2 g/dL (12.0-16.0); LYMPH# 1.08 X1000 (1.2-3.4); LYMPH% 8.9 % (20.5-51.1); MCH 28.4 PG (27-31); MCHC 32.7 g/dL (33-37); MCV 87.1 FL (81-99); MONO# 0.58 X1000 (0.11-0.59); MONO% 4.8 % (1.7-9.3); MPV 9.1 FL (7.4-10.4); NEUT# 10.43 X1000 (1.4-6.5); NEUT% 86.3 % (42.2-75.2); PLT 286 X1000 (130-400); RBC 4.64 XMIL (4.2-5.4); RDW 14.7 % (11.5-14.5); WBC 12.09 X1000 (4.8-10.8)
[2018-02-07 07:03] LABS: AGAP 15; BUN 20 mg/dL (8-22); CALCIUM 8.4 mg/dL (8.8-10.2); CHLORIDE 105 mmol/L (98-107); COSMO 283; CREATININE 0.7 mg/dL (0.5-0.9); ESTIMATED GFR > 60; GLUCOSE 152 mg/dL (70-104); MAGNESIUM 2.6 mg/dL (1.5-2.7); POTASSIUM 3.7 mmol/L (3.5-5.1); SODIUM 139 mmol/L (136-145); TCO2 19 mmol/L (25-35)
[2018-02-07] MEDS: SYMBICORT 80/4.5 MICROGM INHALER INH SCH ×2 (08:22→19:20)
[2018-02-07] MEDS: VITAMIN C PO SCH (09:24)
[2018-02-07] MEDS: LEVAQUIN 750 MG/D5W 750 MG/150 ML IVPB IV SCH (15:11)
[2018-02-07] MEDS: SODIUM CHLORIDE 0.9% INJ SCH (15:11)
[2018-02-07] MEDS: PROTONIX IV SCH (15:12)
[2018-02-07] MEDS ORDERED: LASIX IV ONE (17:26)
--- NOTE | 2018-02-07 20:35 | PROGRESS NOTE ---
DATE: 02/07/2018 OVERNIGHT: No acute events. SUBJECTIVE: She is feeling much better than she has been so far. She still appears a little short of breath. However, she denies any wheezing. She denies any cough. OBJECTIVE: Vital Signs: Temperature of 97.6, pulse 82 per minute, blood pressure 132/72, saturating 96% on 3 L nasal cannula. PHYSICAL EXAMINATION: General: Appears morbidly obese, slightly tachypneic; however, better than yesterday. Respiratory: Air entry bilaterally equal. No wheezes, rhonchi or crackles though she does have prolonged expiratory phase which is better as compared to before. Cardiovascular: Tachycardic. S1, S2 normal. No murmur or gallop. Abdomen: Soft, nontender. Lower Extremities: She has bilateral chronic lymphedema. LABS: Leukocytosis with eosinophil count of 0% and normal electrolyte profile. She does have elevation in her BUN. ASSESSMENT AND PLAN: 1. Acute bronchitis with history of multiple allergies. She might have undiagnosed adult-onset asthma. Continue albuterol ipratropium nebulization and intravenous steroids with intravenous levofloxacin. Day #1 of antibiotics is 02/05/2018. Sputum culture has not shown any growth delayed. 2. Acute hypoxic respiratory failure because of acute bronchitis. Continue oxygenation to maintain saturation more than 94%. She is status post one dose of 80 mg of intravenous Lasix yesterday. I will follow up with chest x-ray tomorrow and give her additional Lasix as necessary. 3. History of hypothyroidism, continue levothyroxine. 4. History of hyperlipidemia, continue atorvastatin and colesevelam. 5. History of seasonal allergy. Continue home fexofenadine. 6. Morbid obesity. Aware. 7. History of chronic back pain. Continue ibuprofen. 8. Chronic lymphedema with history of cerebral palsy, aware. 9. GI prophylaxis, to avoid steroid induced acute gastritis. Continue pantoprazole intravenously. 10. Disposition: The patient still appears a little wheezing and short of breath on my examination. The plan is to re-evaluate the patient tomorrow. If she starts feeling better and her oxygen requirement decreases, then I will consult Physical Therapy and Social Work for future rehab placement. The patient is otherwise coming from home. Plan of care was discussed with her. All of her questions have been answered. cc: Be Lira MD
[2018-02-07] MEDS: LIPITOR PO SCH (22:10)
[2018-02-07] MEDS: WELCHOL PO SCH (22:10)
[2018-02-07] MEDS: ALLEGRA PO SCH (22:10)
[2018-02-08] MEDS: MOTRIN PO PRN (02:39)
[2018-02-08] MEDS: DUONEB (A & A) INH SCH ×6 (03:40→23:14)
[2018-02-08] MEDS: SYNTHROID PO SCH (06:14)
[2018-02-08] MEDS: SOLU-MEDROL IV SCH ×3 (06:20→21:42)
--- NOTE | 2018-02-08 07:00 | Diag Imaging Result Doc PS360 ---
EXAM: CHEST-PORTABLE HISTORY: dyspnea TECHNIQUE: Portable chest, single view COMPARISON: 02/03/2018 FINDINGS: The lungs are well expanded although the right hemidiaphragm is elevated on the current exam The heart is not enlarged. The vessels are not distended. There are no infiltrates. No effusion identified. IMPRESSION: Apparent development of atelectasis or infiltrates in the right lower lobe. Electronically signed by Nino Gonzalez 02/08/2018 6:57 AM
[2018-02-08 07:05] LABS: BASO# 0.03 X1000 (0.0-0.2); BASO% 0.2 % (0.0-0.8); EOS# 0.02 X1000 (0.0-0.7); EOS% 0.1 % (0.0-10.0); HEMATOCRIT 43.9 % (37.0-47.0); HEMOGLOBIN 14.2 g/dL (12.0-16.0); IMM GRAN# 0.31 X1000 (0.0-0.04); LYMPH# 1.29 X1000 (1.2-3.4); LYMPH% 8.3 % (20.5-51.1); MCH 27.9 PG (27-31); MCHC 32.3 g/dL (33-37); MCV 86.2 FL (81-99); MONO# 0.66 X1000 (0.11-0.59); MONO% 4.3 % (1.7-9.3); MPV 9.1 FL (7.4-10.4); NEUT# 13.15 X1000 (1.4-6.5); NEUT% 85.1 % (42.2-75.2); PLT 338 X1000 (130-400); RBC 5.09 XMIL (4.2-5.4); RDW 14.7 % (11.5-14.5); WBC 15.46 X1000 (4.8-10.8)
[2018-02-08 07:06] LABS: AGAP 16; BUN 26 mg/dL (8-22); CALCIUM 9.1 mg/dL (8.8-10.2); CHLORIDE 102 mmol/L (98-107); COSMO 286; CREATININE 0.7 mg/dL (0.5-0.9); ESTIMATED GFR > 60; GLUCOSE 158 mg/dL (70-104); POTASSIUM 3.4 mmol/L (3.5-5.1); SODIUM 139 mmol/L (136-145); TCO2 21 mmol/L (25-35)
[2018-02-08 07:44] LABS: BANDS 4 % (0-1); LYMPHS 8 % (21-51); SEGS 88 % (42-75)
[2018-02-08] MEDS: SYMBICORT 80/4.5 MICROGM INHALER INH SCH ×2 (08:45→19:12)
[2018-02-08] MEDS: VITAMIN C PO SCH (11:32)
[2018-02-08] MEDS: SODIUM CHLORIDE 0.9% INJ SCH (15:03)
[2018-02-08] MEDS: LEVAQUIN 750 MG/D5W 750 MG/150 ML IVPB IV SCH (15:04)
[2018-02-08] MEDS: PROTONIX IV SCH (15:04)
--- NOTE | 2018-02-08 15:29 | PROGRESS NOTE ---
DATE: 02/08/2018 INTERVAL HISTORY: The patient still with some symptoms of dyspnea, but wheezing much improved. No acute events overnight. No new complaints. REVIEW OF SYSTEMS: Twelve point review of systems negative except as per interval history. LABS: White count 15.46, platelets 338,000. Sodium 139, potassium 3.4, bicarb 21, BUN 26, creatinine 0.7, glucose 158. Sputum culture with normal oral sony. PHYSICAL EXAMINATION: General: No acute distress. Vitals: T-max 98.5, pulse 89, respirations 19, blood pressure 138/84, O2 sat 94% on room air. HEENT: Normocephalic, atraumatic. Moist mucous membranes. No cervical adenopathy. Cardiovascular: Regular rate and rhythm. No murmurs, rubs or gallops. Pulmonary: Very faint end expiratory wheeze, but good air entry throughout. Very faint bibasilar crackles. Otherwise, clear to auscultation. Abdomen: Obese, soft, nontender. Bowel sounds positive. Extremities: Venous stasis changes noted, but no increase in edema from previous. Peripheral pulses decreased but intact. Neurologic: Cranial nerves 2-12 grossly intact. No focal motor or sensory deficits. Psychiatric: Slightly anxious appearing. Awake, alert, oriented x 3. Skin: No new rashes or lesions noted. ASSESSMENT AND PLAN: 1. Bronchitis, likely asthma exacerbation, acute hypoxic respiratory failure: Wheezing much improved. Was still requiring oxygen this morning, but undergoing a trial on room air currently. Appears to be doing well so far. Some of her current dyspnea may be anxiety related. Checking ABG to assess for possible chronic hypercapnic respiratory failure related to Pickwickian syndrome. Awaiting physical therapy eval to see if she may be able to go home versus rehab. Chest x-ray does show what I favor to be atelectasis in the right lower lobe, but given slight increase in white count today, will continue antibiotics with Levaquin. If fever develops, we will consider broadening antibiotics. 2. Morbid obesity. Discussed diet and exercise. The patient may have some aspect of Pickwickian syndrome as well. ABG pending to assess. 3. Hypothyroidism. Continue Synthroid. 4. Hyperlipidemia. Continue atorvastatin. 5. Allergies. Continue home fexofenadine. 6. Chronic lymphedema with history of cerebral palsy, stable. 7. Disposition: Slight change in chest x-ray, respiratory status slightly improved. Continue monitoring closely and await physical therapy eval. Home versus rehab based on how she does with Physical Therapy.
[2018-02-08] MEDS: ALLEGRA PO SCH (21:42)
[2018-02-08] MEDS: LIPITOR PO SCH (21:42)
[2018-02-08] MEDS: WELCHOL PO SCH (22:12)
[2018-02-09] MEDS: DUONEB (A & A) INH SCH ×6 (03:22→23:15)
[2018-02-09] MEDS: SOLU-MEDROL IV SCH ×3 (04:22→17:04)
[2018-02-09 04:56] LABS: ALLEN TEST YES; BE -4.8 mmoll (-3.0-3.0); BLOOD TYPE ARTERIAL; HCO3-(ACT) 21.1 mmoll (20.0-26.0); O2(CT) 19.8 mL/dL (15.0-23.0); O2HB 94.6 % (95.0-99.0); PCO2(98.6) 29 mmHg (35-45); PO2(98.6) 73 mmHg (60-100); SAMPLE BLOOD; SAO2 96.9 % (95.0-100.0); THB 14.9 g/dL (11.5-17.4); pH(98.6) 7.41 (7.35-7.45)
[2018-02-09 04:58] LABS: MODALITY CANNULA
[2018-02-09] MEDS: SYNTHROID PO SCH (06:13)
--- NOTE | 2018-02-09 06:47 | Diag Imaging Result Doc PS360 ---
EXAM: CHEST-1 VIEW HISTORY: atelectasis vs pneumonia. asthma exacerbation TECHNIQUE: Portable chest single view COMPARISON: 02/08/2018 FINDINGS: The lungs are well expanded although the right hemidiaphragm is elevated. The heart is not enlarged. The vessels are not distended. There are no infiltrates. No effusion identified. IMPRESSION: Interval improvement in the right base. Electronically signed by Nino Gonzalez 02/09/2018 6:44 AM
[2018-02-09 07:09] LABS: BASO# 0.04 X1000 (0.0-0.2); BASO% 0.2 % (0.0-0.8); HEMATOCRIT 44.8 % (37.0-47.0); HEMOGLOBIN 14.6 g/dL (12.0-16.0); IMM GRAN# 1.05 X1000 (0.0-0.04); IMM GRAN% 5.7 % (0.0-0.5); LYMPH# 1.49 X1000 (1.2-3.4); LYMPH% 8.1 % (20.5-51.1); MCH 28.1 PG (27-31); MCHC 32.6 g/dL (33-37); MCV 86.2 FL (81-99); MONO# 0.97 X1000 (0.11-0.59); MONO% 5.3 % (1.7-9.3); MPV 9.3 FL (7.4-10.4); NEUT# 14.85 X1000 (1.4-6.5); NEUT% 80.7 % (42.2-75.2); PLT 373 X1000 (130-400); RDW 14.6 % (11.5-14.5)
[2018-02-09 07:39] LABS: AGAP 19; BANDS 2 % (0-1); BUN 25 mg/dL (8-22); CALCIUM 9.2 mg/dL (8.8-10.2); CHLORIDE 100 mmol/L (98-107); COSMO 282; CREATININE 0.7 mg/dL (0.5-0.9); ESTIMATED GFR > 60; GLUCOSE 165 mg/dL (70-104); LYMPHS 10 % (21-51); MONO 6 % (1-9); POTASSIUM 3.6 mmol/L (3.5-5.1); SEGS 80 % (42-75); SODIUM 137 mmol/L (136-145); TCO2 18 mmol/L (25-35)
[2018-02-09] MEDS: SYMBICORT 80/4.5 MICROGM INHALER INH SCH ×2 (07:53→19:35)
[2018-02-09] MEDS ORDERED: VANCOMYCIN IV PER PHARMACY MISC SCH (08:15)
[2018-02-09] MEDS ORDERED: VANCOMYCIN 2,000 MG in NS 500 ML IV ONE (09:00)
--- NOTE | 2018-02-09 09:50 | Diag Imaging Result Doc PS360 ---
EXAM: CT ANGIOGRM PULMONARY ARTERIES 02/09/2018 HISTORY: hypoxia, hyperventilation. increasing wbc. TECHNIQUE: This exam was performed using automated exposure control, adjustment of mA or kV according to patient size, and/or use of iterative reconstruction technique. COMMENT: 3-D MIPS were performed. There are no filling defects in the pulmonary arteries. The aorta is not distended and there is no evidence of dissection. There is some platelike opacity posteriorly in the left upper lobe which is likely due to atelectasis. The patchy alveolar opacity which was present in the inferior portion of the left upper lobe and both lower lobes at the time the previous study of 08/06/2016 is not present currently. There is some platelike atelectasis in the left lower lobe and there is irregular linear opacity present in the right lower lobe which was not previously present and is likely related to atelectasis or bronchopneumonia. There is a calcified granuloma posteriorly in the right apex which was also present previously. The regional skeleton is intact. IMPRESSION: Atelectasis and/or bronchopneumonia. No evidence of pulmonary emboli. Electronically signed by Magnus Swain 02/09/2018 9:47 AM
[2018-02-09] MEDS: VITAMIN C PO SCH (10:24)
[2018-02-09] MEDS: NS 1,000 ML IV SCH ×2 (10:27→16:46)
[2018-02-09] MEDS ORDERED: NS 1,000 ML ONE (10:39)
[2018-02-09 15:31] LABS: URINE SOURCE CLEAN CATCH
[2018-02-09 15:37] LABS: BILIRUBIN URINE NEGATIVE (NEGATIVE); BLOOD URINE TRACE (NEGATIVE); COLOR YELLOW; GLUCOSE URINE NEGATIVE (NEGATIVE); KETONE URINE NEGATIVE (NEGATIVE); LEUKOCYTES URINE TRACE (NEGATIVE); NITRITE URINE NEGATIVE (NEGATIVE); PH URINE 6.5; PROTEIN URINE TRACE mg/dL (NEGATIVE); SP GRAVITY URINE 1.049; TURBIDITY URINE CLEAR (CLEAR); UROBILINOGEN URINE NORMAL (NORMAL)
[2018-02-09 15:39] LABS: UR EPITHELIAL CELLS <10 /HPF (<10); URINE BACTERIA NEGATIVE /HPF; URINE RBC <10 /HPF (<10); URINE WBC <10 /HPF (<10)
[2018-02-09] MEDS: ZOSYN 3.375 GM in NS 50 ML IV SCH ×3 (15:48→23:00)
[2018-02-09] MEDS: SODIUM CHLORIDE 0.9% INJ SCH (15:49)
[2018-02-09] MEDS: PROTONIX IV SCH (15:49)
[2018-02-09] MEDS: TESSALON PO PRN (17:04)
--- NOTE | 2018-02-09 18:51 | PROGRESS NOTE ---
DATE: 02/09/2018 INTERVAL HISTORY: Patient still with intermittent dyspnea but still requiring 2 to 3 L of oxygen by nasal cannula. No other new complaints, no other acute events overnight. REVIEW OF SYSTEMS: Is negative except as per interval history. LAB: White count 18.4, hemoglobin 14. ABG with pH 7.4 , pCO2 of 29, PO2 is 73, O2 saturation 96.9, lactate 5.7 on 2 L by nasal cannula. The basic metabolic panel significant for bicarb of 18, glucose 165, lactate 5.1 chemistry otherwise unremarkable. IMAGING: CTA chest showing no pulmonary embolus but likely bronchopneumonia. VITALS: T-max 98.5 degrees, pulse 101, respirations 18, O2 saturation 93% on 3 L by nasal cannula. EXAM: General: No acute distress, morbidly obese. Vitals as above. HEENT: Normocephalic, atraumatic. Moist mucous membranes. No cervical adenopathy. Cardiovascular: Minimally tachycardic but regular. No murmurs, rubs or gallops noted. Pulmonary: Slight left base crackles noted otherwise clear to auscultation within the limits of body habitus. Abdomen: Soft, nontender, nondistended, bowel sounds positive. Extremities: Peripheral pulses decreased but intact, no clubbing, cyanosis, or edema. Neurologic: Cranial nerves 2-12 grossly intact, globally weak but no focal deficits identified. Extremities: Peripheral pulses decreased but intact, chronic venous stasis unchanged otherwise no clubbing or cyanosis, no increase in edema. Psychiatric: Normal mood and affect. Awake, alert, oriented x3. Skin: No new rashes or lesions. ASSESSMENT AND PLAN: 1. Acute hypoxic respiratory failure, possible asthma exacerbation, pneumonia: Really no further wheezing but still requiring significant oxygen, initially thought this may be some aspect of chronic respiratory failure from Pickwickian syndrome but ABG this morning showed hyperventilation which raise concern for pulmonary embolism. CTA was obtained which did not show clot but did show pneumonia. Patient has been on antibiotics with Levaquin for possible infection. Given relatively poor improvement will broaden antibiotics to vanc and Zosyn. If patient does not improve on this then will likely consult pulmonology in the morning. Will wean steroids. 2. Morbid obesity. Discussed diet and exercise. 3. Hypothyroidism. Continue home Synthroid. 4. Hyperlipidemia. Continue atorvastatin. 5. Allergies. Continue home fexofenadine. 6. Chronic lymphedema with history of cerebral palsy, stable. 7. Disposition. Pneumonia identified on CTA which was likely present on admission but does not appear to have responded well to the Levaquin that she has been on. Continue monitoring closely with antibiotic changes above. Physical therapy eval pending. Possible home versus rehab early next week if she improves. [facility]ENTER[facility]ora
[2018-02-09] MEDS: ALLEGRA PO SCH (21:11)
[2018-02-09] MEDS: LIPITOR PO SCH (21:11)
[2018-02-09] MEDS: VANCOMYCIN 1,750 MG in NS 250 ML IV SCH (21:11)
[2018-02-09] MEDS: WELCHOL PO SCH (21:11)
[2018-02-10] MEDS: NS 1,000 ML IV SCH (02:36)
[2018-02-10] MEDS: DUONEB (A & A) INH SCH ×6 (03:10→23:40)
[2018-02-10] MEDS: TESSALON PO PRN ×2 (03:33→09:31)
[2018-02-10] MEDS: ZOSYN 3.375 GM in NS 50 ML IV SCH ×4 (03:33→23:06)
[2018-02-10] MEDS: MOTRIN PO PRN (04:40)
[2018-02-10] MEDS: SOLU-MEDROL IV SCH ×2 (06:11→17:20)
[2018-02-10] MEDS: SYNTHROID PO SCH (06:11)
[2018-02-10 07:40] LABS: BASO# 0.06 X1000 (0.0-0.2); BASO% 0.4 % (0.0-0.8); HEMATOCRIT 42.6 % (37.0-47.0); HEMOGLOBIN 13.9 g/dL (12.0-16.0); IMM GRAN# 1.42 X1000 (0.0-0.04); IMM GRAN% 8.6 % (0.0-0.5); LYMPH# 1.32 X1000 (1.2-3.4); MCH 28.3 PG (27-31); MCHC 32.6 g/dL (33-37); MCV 86.6 FL (81-99); MONO# 1.03 X1000 (0.11-0.59); MONO% 6.2 % (1.7-9.3); MPV 9.1 FL (7.4-10.4); NEUT# 12.69 X1000 (1.4-6.5); NEUT% 76.8 % (42.2-75.2); PLT 320 X1000 (130-400); RBC 4.92 XMIL (4.2-5.4); RDW 14.8 % (11.5-14.5); WBC 16.52 X1000 (4.8-10.8)
[2018-02-10 07:41] LABS: AGAP 14; BUN 24 mg/dL (8-22); CALCIUM 8.2 mg/dL (8.8-10.2); CHLORIDE 106 mmol/L (98-107); COSMO 283; CREATININE 0.7 mg/dL (0.5-0.9); ESTIMATED GFR > 60; GLUCOSE 131 mg/dL (70-104); POTASSIUM 3.7 mmol/L (3.5-5.1); SODIUM 139 mmol/L (136-145); TCO2 19 mmol/L (25-35)
[2018-02-10] MEDS: VITAMIN C PO SCH (09:31)
[2018-02-10] MEDS: VANCOMYCIN 1,750 MG in NS 250 ML IV SCH ×2 (09:32→20:59)
[2018-02-10] MEDS: SYMBICORT 80/4.5 MICROGM INHALER INH SCH ×2 (10:12→19:35)
--- NOTE | 2018-02-10 12:56 | PROGRESS NOTE ---
DATE: 02/10/2018 SUBJECTIVE: This patient is feeling a little bit better compared with admission. She was admitted 6 days ago. She does not feel that she is improving too much though. CT angiogram yesterday showed pneumonia, bilateral lower lobe pneumonia, and some atelectasis, but no pulmonary embolism. Antibiotic has been switched to vancomycin and Zosyn because she has not been responding too good to levofloxacin. Pulmonary Department has been consulted. OBJECTIVE: Vital Signs: Temperature 98.3, pulse 111, respiratory rate 21, blood pressure 151/84, oxygen saturation 94% on 3 L of nasal cannula. HEENT: Head normocephalic. No trauma. PERRLA. Neck: Supple. No JVD. No masses. Central trachea. Chest: Decreased breath sounds globally. Some crepitus at the bases. Abdomen: Soft, obese, protuberant. Nontender, nondistended. No hepatosplenomegaly. Extremities: 1 to 2+ lower extremity edema. No clubbing. No cyanosis. Neurological: The patient is alert and oriented x3. No focal deficits. LABORATORY DATA: WBC 16.5, hemoglobin 13.9, hematocrit. 42.6, platelets 320,000. Sodium 139, potassium 3.7, chloride 106, bicarbonate 19, BUN 24, creatinine 0.7, glucose 131, calcium 8.2. Lactate level is 4.1. ASSESSMENT AND PLAN: 1. Acute hypoxemic respiratory failure likely secondary to pneumonia and bronchospasm. She is not wheezing at this moment, but she is requiring oxygen. She is still having shortness of breath and she believes that she is not getting better. Probably the respiratory failure has been chronic due to pickwickian syndrome. CT angiogram did not show any pulmonary embolism, but pneumonia at the bases. Antibiotics have been switched from levofloxacin to vancomycin and Zosyn. 2. History of cerebral palsy. Aware. 3. Morbid obesity. Discussed diet and exercise. 4. Hypothyroidism. Continue with levothyroxine. 5. Hyperlipidemia. Continue with atorvastatin. 6. History of allergies. Continue with home fexofenadine. 7. Likely pickwickian syndrome/sleep apnea. Pulmonary Department has been consulted. Hopefully, she will get an appointment to do a sleep study as an outpatient. cc: Matt Moreno MD
[2018-02-10] MEDS: PROTONIX IV SCH (14:57)
[2018-02-10] MEDS: SODIUM CHLORIDE 0.9% INJ SCH (14:57)
[2018-02-10] MEDS: WELCHOL PO SCH (21:00)
[2018-02-10] MEDS: ALLEGRA PO SCH (21:00)
[2018-02-10] MEDS: LIPITOR PO SCH (21:00)
[2018-02-11] MEDS: ZOSYN 3.375 GM in NS 50 ML IV SCH ×4 (03:38→22:50)
[2018-02-11] MEDS: DUONEB (A & A) INH SCH ×6 (03:40→23:15)
[2018-02-11] MEDS: SOLU-MEDROL IV SCH ×2 (05:03→17:58)
[2018-02-11 05:48] LABS: ALLEN TEST YES; BLOOD TYPE ARTERIAL; O2(CT) 20.3 mL/dL (15.0-23.0); O2HB 95.5 % (95.0-99.0); PCO2(98.6) 31 mmHg (35-45); PO2(98.6) 82 mmHg (60-100); SAMPLE BLOOD; SAO2 98.5 % (95.0-100.0); THB 15.1 g/dL (11.5-17.4); pH(98.6) 7.39 (7.35-7.45)
[2018-02-11 05:49] LABS: MODALITY CANNULA
[2018-02-11] MEDS: SYNTHROID PO SCH (06:05)
[2018-02-11 07:22] LABS: BASO# 0.11 X1000 (0.0-0.2); BASO% 0.5 % (0.0-0.8); HEMATOCRIT 42.8 % (37.0-47.0); IMM GRAN# 2.58 X1000 (0.0-0.04); IMM GRAN% 12.6 % (0.0-0.5); LYMPH# 1.37 X1000 (1.2-3.4); LYMPH% 6.7 % (20.5-51.1); MCH 28.3 PG (27-31); MCHC 32.7 g/dL (33-37); MCV 86.5 FL (81-99); MONO# 1.32 X1000 (0.11-0.59); MONO% 6.5 % (1.7-9.3); MPV 9.3 FL (7.4-10.4); NEUT# 15.08 X1000 (1.4-6.5); NEUT% 73.7 % (42.2-75.2); PLT 339 X1000 (130-400); RBC 4.95 XMIL (4.2-5.4); RDW 14.9 % (11.5-14.5); WBC 20.46 X1000 (4.8-10.8)
[2018-02-11 07:37] LABS: AGAP 14; BUN 22 mg/dL (8-22); CHLORIDE 104 mmol/L (98-107); COSMO 280; CREATININE 0.6 mg/dL (0.5-0.9); ESTIMATED GFR > 60; GLUCOSE 122 mg/dL (70-104); POTASSIUM 3.8 mmol/L (3.5-5.1); SODIUM 138 mmol/L (136-145); TCO2 20 mmol/L (25-35)
[2018-02-11 07:47] LABS: BANDS 12 % (0-1); LYMPHS 12 % (21-51); MONO 6 % (1-9); SEGS 66 % (42-75)
[2018-02-11] MEDS: SYMBICORT 80/4.5 MICROGM INHALER INH SCH ×2 (07:49→19:35)
[2018-02-11] MEDS: VITAMIN C PO SCH (09:02)
[2018-02-11] MEDS: TESSALON PO PRN (09:47)
--- NOTE | 2018-02-11 10:01 | PROGRESS NOTE ---
DATE: 02/11/2018 SUBJECTIVE: This patient is feeling a little bit better compared with yesterday. She is still complaining of shortness of breath. Her white blood cells increased from 16 to 20 but this is likely due to steroids. She is still wheezing. Pulmonary department has been consulted. We will continue with the same antibiotics, breathing treatments, and pulmonary toilet. OBJECTIVE: Vital Signs: Temperature 97.7 degrees, pulse 103, respiratory rate 20, blood pressure 143/74, oxygen saturation 96% on 2 L of nasal cannula. HEENT: Head normocephalic. No trauma. PERRLA. Neck: Supple. No JVD. No masses. Central trachea. Chest: Decreased breath sounds globally with some crepitus and rhonchi at the bases. She does have some expiratory wheezing. Abdomen: Soft, obese, protuberant, nontender, nondistended. No hepatosplenomegaly. Extremities: There is 2+ lower extremity edema. No clubbing. No cyanosis. Neurological Examination: The patient is alert and oriented x3. No focal deficits. Laboratory: WBC 20.4, hemoglobin 14, hematocrit 42.8, platelets 339,000. Sodium 138, potassium 3.8, chloride 104, bicarbonate 20, BUN 22, creatinine 0.6, glucose 122, calcium 8. ASSESSMENT AND PLAN: 1. Acute hypoxemic respiratory failure, likely secondary to pneumonia and bronchospasm. She is wheezing a little bit at this moment. She is still requiring oxygen. She is still having shortness of breath. Pulmonary department has been consulted. CT angiogram did not show any pulmonary embolism but pneumonia at the bases. Antibiotic has been switched from levofloxacin to vancomycin and Zosyn. 2. History of cerebral palsy, aware. 3. Morbid obesity. Discussed diet and exercise. 4. Hypothyroidism. Continue with levothyroxine. 5. Hyperlipidemia. Continue with atorvastatin. 6. History of allergies. Continue with fexofenadine. 7. Likely pickwickian syndrome/sleep apnea. Pulmonary department has been consulted. Probably this patient needs to get a sleep study as an outpatient. 8. Herpes labialis, aware. It looks like it is getting better. No treatment for now. cc: Matt Moreno MD
[2018-02-11] MEDS: VANCOMYCIN 1,750 MG in NS 250 ML IV SCH ×2 (10:28→23:41)
--- NOTE | 2018-02-11 14:07 | CONSULTATION ---
DATE OF CONSULTATION: 02/11/2018 CHIEF COMPLAINT: Shortness of breath and cough. HISTORY OF PRESENT ILLNESS: This is a 52-year-old female with a past medical history of cerebral palsy, hyperlipidemia and lower extremity lymphedema. The patient has complaint of coughing and shortness of breath. She denies chest pain at the present time. Recent CT angiogram reveals atelectasis and/or bronchial pneumonia. No evidence of pulmonary emboli. ALLERGIES: Morphine, latex and Hydrocodone. PAST SURGICAL HISTORY: Right knee surgery. Hysterectomy. PAST MEDICAL HISTORY: Cerebral palsy, lymphedema, hyperlipidemia. CURRENT MEDICATIONS: Please see medication reconciliation sheet. SOCIAL HISTORY: No history of smoking. Admits social alcohol use. Denies illicit drug use. FAMILY HISTORY: Negative. REVIEW OF SYSTEMS: A 10-point review of systems was conducted and the pertinent is listed within the history of present illness, otherwise noncontributory. PHYSICAL EXAMINATION: General: This is a 52-year-old female with morbid obesity. She is resting without distress at the present time. Vital Signs: Pulse rate 109, respirations 22, blood pressure 143/74, O2 saturation 96% with O2 at 2 L per nasal cannula. HEENT: Head is atraumatic, normocephalic. Eyes, pupils equal, round, react reactive to light and accommodation. Moist mucous membranes. Neck: Supple. Cardiovascular: Regular rate and rhythm. No gallops, murmurs or rubs. Respiratory: Wheezes throughout all lung mahmood. Regular, nonlabored. Abdomen: Soft with active bowel sounds in all 4 quadrants. Extremities: +3 pitting edema. Neurologic: She is awake, alert, oriented x3. Skin: Warm dry, and intact. LABORATORY DATA: White blood cells 20.46. Red blood cells 4.95, hemoglobin 14, hematocrit 42.8, pH 7.39, pCO2 31, PO2 82, HC03 21, base excess -5. Oxyhemoglobin 95.5, sodium 138, potassium 3.8, chloride 104, carbon dioxide 20, BUN 22, creatinine 0.6. Glucose 122, calcium 8. DIAGNOSTIC DATA: Recent pulmonary arteriogram as mentioned in the history of present illness. ASSESSMENT AND PLAN: 1. Acute respiratory failure secondary to bronchospasm and pneumonia. Continue antibiotics, steroids and bronchodilators and supplemental O2 as needed. 2. History of cerebral palsy. 3. Morbid obesity. 4. Hypothyroidism, continue levothyroxine. 5. Hyperlipidemia, continue statins as scheduled. 6. Continue gastrointestinal prophylaxis with Protonix. Thank you for the courtesy of this consult. Dictated by DORA Bone for Ovidio James MD cc: DORA Bone MD
[2018-02-11] MEDS: PROTONIX IV SCH (15:34)
[2018-02-11] MEDS: SODIUM CHLORIDE 0.9% INJ SCH (15:34)
[2018-02-11] MEDS: WELCHOL PO SCH (21:11)
[2018-02-11] MEDS: ALLEGRA PO SCH (21:11)
[2018-02-11] MEDS: LIPITOR PO SCH (21:11)
[2018-02-12] MEDS: DUONEB (A & A) INH SCH ×6 (03:35→23:00)
[2018-02-12] MEDS: ZOSYN 3.375 GM in NS 50 ML IV SCH ×4 (04:37→23:13)
[2018-02-12] MEDS: ROBAXIN PO PRN (05:00)
[2018-02-12] MEDS: SOLU-MEDROL IV SCH (06:23)
[2018-02-12] MEDS: SYNTHROID PO SCH (06:23)
[2018-02-12 07:26] LABS: BASO% 0.9 % (0.0-0.8); EOS# 0.02 X1000 (0.0-0.7); EOS% 0.1 % (0.0-10.0); HEMATOCRIT 43.5 % (37.0-47.0); IMM GRAN# 2.88 X1000 (0.0-0.04); IMM GRAN% 12.5 % (0.0-0.5); LYMPH% 6.5 % (20.5-51.1); MCH 27.9 PG (27-31); MCHC 32.2 g/dL (33-37); MCV 86.7 FL (81-99); MONO# 1.48 X1000 (0.11-0.59); MONO% 6.4 % (1.7-9.3); MPV 9.2 FL (7.4-10.4); NEUT% 73.6 % (42.2-75.2); PLT 322 X1000 (130-400); RBC 5.02 XMIL (4.2-5.4); RDW 14.9 % (11.5-14.5); WBC 23.08 X1000 (4.8-10.8)
[2018-02-12] MEDS: SYMBICORT 80/4.5 MICROGM INHALER INH SCH ×2 (07:48→19:05)
[2018-02-12 07:58] LABS: AGAP 16; BUN 20 mg/dL (8-22); CALCIUM 8.3 mg/dL (8.8-10.2); CHLORIDE 103 mmol/L (98-107); COSMO 281; CREATININE 0.7 mg/dL (0.5-0.9); ESTIMATED GFR > 60; GLUCOSE 114 mg/dL (70-104); POTASSIUM 3.9 mmol/L (3.5-5.1); SODIUM 139 mmol/L (136-145); TCO2 20 mmol/L (25-35)
[2018-02-12] MEDS: VITAMIN C PO SCH (08:04)
[2018-02-12 09:59] LABS: LYMPHS 6 % (21-51); MONO 6 % (1-9)
[2018-02-12 10:00] LABS: BANDS 2 % (0-1); SEGS 84 % (42-75)
[2018-02-12] MEDS: VANCOMYCIN 1,750 MG in NS 250 ML IV SCH ×2 (11:39→23:00)
[2018-02-12] MEDS: SODIUM CHLORIDE 0.9% INJ SCH (15:51)
[2018-02-12] MEDS: PROTONIX IV SCH (15:51)
--- NOTE | 2018-02-12 18:31 | PROGRESS NOTE ---
DATE: 02/12/2018 SUBJECTIVE: This patient feels a little bit better compared with yesterday. WBC increased from 20 to 25 and I do believe it is related with the steroids which I have decreased the dose already. She is still having some end-expiratory wheezing, but compared with the previous days is improving. Pulmonary Department on board. I will follow their recommendations. OBJECTIVE: Vital Signs: Temperature 98.1, pulse 125, respiratory rate 15, blood pressure 138/87, oxygen saturation 93% on 2 L of nasal cannula. HEENT: Head normocephalic. No trauma. PERRLA. Neck: Supple. No JVD. No masses. Central trachea. Chest: Decreased breath sounds globally with some crepitus and rhonchi at the bases. He has some end expiatory wheezing, scattered. Abdomen: Soft, obese, protuberant. Nontender, nondistended. No hepatosplenomegaly. Extremities: 2+ lower extremity edema. No clubbing. No cyanosis. Neurologic: The patient is alert and oriented x 3. No focal deficits. LABORATORY: WBC 23, hemoglobin 14, hematocrit 43.5, platelets 322,000. Sodium 139, potassium 3.9, chloride 103, bicarbonate 20, BUN 20, creatinine 0.7, glucose 114, calcium 8.3. ASSESSMENT AND PLAN: 1. Acute hypoxemic respiratory failure likely secondary to pneumonia and bronchospasm. I do not have any history of COPD or asthma in this patient. She is still wheezing a little bit. She is not using oxygen at this moment. She still complains of some shortness of breath. Pulmonary Department already evaluated this patient. We will wait for recommendations. 2. Pneumonia. Continue with antibiotics. This patient has been placed on vancomycin and Zosyn, but initially she was on levofloxacin. 3. History of cerebral palsy, aware. 4. Morbid obesity. Discussed diet and exercise. 5. Hypothyroidism, continue levothyroxine. 6. Hyperlipidemia, continue with atorvastatin. 7. History of allergies. Continue with fexofenadine. 8. Likely sleep apnea/Pickwickian syndrome. Pulmonary Department consulted. Probably this patient will get a sleep study as an outpatient. 9. Herpes labialis, aware. This is getting better. No treatment for now. cc: Matt Moreno MD
[2018-02-12] MEDS: LIPITOR PO SCH (23:09)
[2018-02-12] MEDS: WELCHOL PO SCH (23:10)
[2018-02-12] MEDS: ALLEGRA PO SCH (23:10)
[2018-02-13] MEDS: TESSALON PO PRN ×3 (00:16→20:27)
[2018-02-13] MEDS: DUONEB (A & A) INH SCH ×6 (03:20→23:05)
[2018-02-13] MEDS: ZOSYN 3.375 GM in NS 50 ML IV SCH ×4 (04:01→23:31)
[2018-02-13] MEDS: SYNTHROID PO SCH (06:17)
--- NOTE | 2018-02-13 07:21 | Diag Imaging Result Doc PS360 ---
EXAM: CHEST-1 VIEW 02/13/2018 HISTORY: SOB TECHNIQUE: AP portable at 0536 COMMENT: The appearance of the chest has not changed significantly since 02/09/2018. IMPRESSION: Stable chest. Electronically signed by Magnus Swain 02/13/2018 7:18 AM
[2018-02-13] MEDS: SYMBICORT 80/4.5 MICROGM INHALER INH SCH ×2 (07:25→19:35)
[2018-02-13 07:37] LABS: BASO# 0.14 X1000 (0.0-0.2); BASO% 0.7 % (0.0-0.8); EOS# 0.03 X1000 (0.0-0.7); EOS% 0.1 % (0.0-10.0); HEMOGLOBIN 13.7 g/dL (12.0-16.0); IMM GRAN# 2.36 X1000 (0.0-0.04); IMM GRAN% 11.7 % (0.0-0.5); LYMPH# 2.88 X1000 (1.2-3.4); LYMPH% 14.2 % (20.5-51.1); MCH 28.3 PG (27-31); MCHC 32.6 g/dL (33-37); MCV 86.8 FL (81-99); MONO% 7.9 % (1.7-9.3); MPV 9.2 FL (7.4-10.4); NEUT# 13.22 X1000 (1.4-6.5); NEUT% 65.4 % (42.2-75.2); PLT 296 X1000 (130-400); RBC 4.84 XMIL (4.2-5.4); RDW 15.1 % (11.5-14.5); WBC 20.23 X1000 (4.8-10.8)
[2018-02-13 07:56] LABS: BANDS 4 % (0-1); LYMPHS 26 % (21-51); MONO 8 % (1-9); SEGS 62 % (42-75)
[2018-02-13 08:02] LABS: AGAP 12; BUN 22 mg/dL (8-22); CALCIUM 8.3 mg/dL (8.8-10.2); CHLORIDE 102 mmol/L (98-107); COSMO 276; CREATININE 0.6 mg/dL (0.5-0.9); ESTIMATED GFR > 60; GLUCOSE 86 mg/dL (70-104); POTASSIUM 3.3 mmol/L (3.5-5.1); SODIUM 137 mmol/L (136-145); TCO2 23 mmol/L (25-35)
[2018-02-13] MEDS: VITAMIN C PO SCH (08:45)
[2018-02-13] MEDS: SOLU-MEDROL IV SCH (08:46)
[2018-02-13] MEDS: VANCOMYCIN 1,750 MG in NS 250 ML IV SCH ×2 (10:36→21:29)
[2018-02-13] MEDS ORDERED: KLOR-CON PO ONE (11:14)
--- NOTE | 2018-02-13 14:40 | PROGRESS NOTE ---
DATE: 02/13/2018 SUBJECTIVE: This patient is feeling a little bit better compared with yesterday. WBC went down a little bit from 23 to 20. We will continue with the same management for now. Pulmonary Department is on board. OBJECTIVE: Vital Signs: Temperature 97.9 degrees, pulse 116, respiratory rate 17, blood pressure 138/80, and oxygen saturation 95% on room air. HEENT: Head normocephalic. No trauma. PERRLA. Neck: Supple. No JVD. No masses. Central trachea. Chest: Decreased breath sounds globally with some crepitus and rhonchi at the bases and some expiratory wheezing bilaterally scattered. Abdomen: Soft, obese, protuberant, nontender, nondistended. No hepatosplenomegaly. Extremities: There is 2+ lower extremity edema. No clubbing. No cyanosis. Neurological: The patient is alert and oriented x3. No focal deficits. LABORATORY DATA: WBC 20.2, hemoglobin 13.7, hematocrit 42, platelets 296,000. Sodium 137, potassium 3.3, chloride 102, bicarbonate 23, BUN 22, creatinine 0.6, glucose 86, calcium 8.3. ASSESSMENT AND PLAN: 1. Acute hypoxemic respiratory failure secondary to pneumonia and bronchospasm. It is not just reactive airway disease. Continue with the same management for now. Pulmonary Department following this patient closely. Continue with antibiotics. 2. Pneumonia. X-ray looks better. Continue vancomycin and Zosyn. Initially she was on levofloxacin. 3. History of cerebral palsy, aware. 4. Morbid obesity. Diet and exercise have been discussed. 5. Hypothyroidism. Continue with levothyroxine. 6. Hyperlipidemia. Continue with atorvastatin. 7. History of allergies. Continue with fexofenadine. 8. Likely sleep apnea/Pickwickian syndrome. Pulmonary Department on board. Hopefully, she will have an appointment as an outpatient to get a sleep study. 9. Herpes labialis, aware. Getting better. No treatment for now. cc: Matt Moreno MD
[2018-02-13] MEDS: PROTONIX IV SCH (17:15)
[2018-02-13] MEDS: LIPITOR PO SCH (20:27)
[2018-02-13] MEDS: ALLEGRA PO SCH (20:27)
[2018-02-13] MEDS: WELCHOL PO SCH (20:27)
[2018-02-14] MEDS: TESSALON PO PRN ×3 (02:44→20:53)
[2018-02-14] MEDS: DUONEB (A & A) INH SCH ×6 (02:45→23:20)
[2018-02-14] MEDS: ZOSYN 3.375 GM in NS 50 ML IV SCH ×5 (04:21→21:46)
[2018-02-14] MEDS: ROBAXIN PO PRN ×2 (04:21→20:53)
[2018-02-14 06:00] LABS: ALLEN TEST YES; BE -1.8 mmoll (-3.0-3.0); BLOOD TYPE ARTERIAL; HCO3-(ACT) 23.4 mmoll (20.0-26.0); O2(CT) 19.5 mL/dL (15.0-23.0); O2HB 93.3 % (95.0-99.0); PCO2(98.6) 39 mmHg (35-45); PO2(98.6) 68 mmHg (60-100); SAMPLE BLOOD; SAO2 95.9 % (95.0-100.0); THB 14.9 g/dL (11.5-17.4); pH(98.6) 7.38 (7.35-7.45)
[2018-02-14 06:01] LABS: MODALITY CANNULA
[2018-02-14] MEDS: SYNTHROID PO SCH (06:03)
--- NOTE | 2018-02-14 07:42 | Diag Imaging Result Doc PS360 ---
EXAM: CHEST-1 VIEW 02/14/2018 HISTORY: SOB TECHNIQUE: AP portable at 0532 COMMENT: There is ill-defined opacity present in the retrocardiac region of left lower lobe and in the right middle lobe consistent with atelectasis. This appears slightly worse than on the previous study of 02/13/2018. IMPRESSION: Bibasilar atelectasis. Electronically signed by Magnus Swain 02/14/2018 7:39 AM
[2018-02-14] MEDS: SYMBICORT 80/4.5 MICROGM INHALER INH SCH ×2 (07:58→19:53)
[2018-02-14 07:59] LABS: AGAP 12; BUN 17 mg/dL (8-22); CALCIUM 8.6 mg/dL (8.8-10.2); CHLORIDE 103 mmol/L (98-107); COSMO 277; CREATININE 0.6 mg/dL (0.5-0.9); ESTIMATED GFR > 60; GLUCOSE 90 mg/dL (70-104); POTASSIUM 3.8 mmol/L (3.5-5.1); SODIUM 138 mmol/L (136-145); TCO2 23 mmol/L (25-35)
[2018-02-14 08:03] LABS: BASO# 0.09 X1000 (0.0-0.2); BASO% 0.4 % (0.0-0.8); EOS# 0.08 X1000 (0.0-0.7); EOS% 0.3 % (0.0-10.0); HEMATOCRIT 43.9 % (37.0-47.0); HEMOGLOBIN 14.5 g/dL (12.0-16.0); IMM GRAN# 1.92 X1000 (0.0-0.04); IMM GRAN% 7.6 % (0.0-0.5); LYMPH# 2.83 X1000 (1.2-3.4); LYMPH% 11.1 % (20.5-51.1); MCH 28.6 PG (27-31); MCV 86.6 FL (81-99); MONO# 1.81 X1000 (0.11-0.59); MONO% 7.1 % (1.7-9.3); MPV 9.2 FL (7.4-10.4); NEUT# 18.67 X1000 (1.4-6.5); NEUT% 73.5 % (42.2-75.2); PLT 285 X1000 (130-400); RBC 5.07 XMIL (4.2-5.4); RDW 15.3 % (11.5-14.5)
[2018-02-14 08:29] LABS: BANDS 4 % (0-1); LYMPHS 10 % (21-51); MONO 8 % (1-9); SEGS 72 % (42-75)
[2018-02-14] MEDS ORDERED: CHLORASEPTIC SPRAY MT PRN (09:24)
[2018-02-14] MEDS ORDERED: SENOKOT PO PRN ×2 (09:25→09:36)
[2018-02-14] MEDS: VITAMIN C PO SCH (09:26)
[2018-02-14] MEDS: SOLU-MEDROL IV SCH (09:37)
[2018-02-14] MEDS: VANCOMYCIN 1,750 MG in NS 250 ML IV SCH (13:24)
--- NOTE | 2018-02-14 14:54 | PROGRESS NOTE ---
DATE: 02/14/2018 SUBJECTIVE: This patient is still having some shortness of breath. WBC went up from yesterday. I will decrease a little bit of dose of the steroids and I will add Singulair to her medications. OBJECTIVE: Vital Signs: Temperature 97.9, pulse 120, respiratory rate 16i, blood pressure 132/72, oxygen saturation 96% on 2 L of nasal cannula. HEENT: Head normocephalic. No trauma. PERRLA. Neck: Supple. No JVD. No masses. Central trachea. Chest: Decreased breath sounds globally with some crepitus and rhonchi at the bases with some faint expiratory wheezing scattered bilaterally. Abdomen: Soft, obese, protuberant. Nontender, nondistended. No hepatosplenomegaly. Extremities: There is a 2+ pitting edema bilaterally. No clubbing, no cyanosis. Neurologic: Alert and oriented x 3. No focal deficits. LABORATORY: WBC 25.4, hemoglobin 14.5, hematocrit 43.9, platelets 285,000. Sodium 138, potassium 3.8, chloride 103, bicarbonate 23, BUN 17, creatinine 0.6, glucose 90, calcium 8.6. ASSESSMENT AND PLAN: 1. Acute hypoxemic respiratory failure secondary to pneumonia and bronchospasm, probably is just a reactive airway disease. Continue with the same management for now. Pulmonary Department following this patient. Continue with antibiotics. I will add Singulair to her medications. 2. Pneumonia. X-ray looks better. Some atelectasis at the basis. 3. History of cerebral palsy, aware. 4. Morbid obesity. Diet and exercise have been discussed. 5. Hypothyroidism. Continue with levothyroxine. 6. Hyperlipidemia. Continue with atorvastatin. 7. History of allergies. Continue with fexofenadine. 8. Likely sleep apnea, aware. 9. Herpes labialis, improved. cc: Matt Moreno MD
[2018-02-14] MEDS: PROTONIX IV SCH (16:09)
[2018-02-14] MEDS ORDERED: MIRALAX PO PRN (17:28)
[2018-02-14] MEDS: MOTRIN PO PRN (17:51)
[2018-02-14] MEDS: SINGULAIR PO SCH (20:53)
[2018-02-14] MEDS: ALLEGRA PO SCH (20:53)
[2018-02-14] MEDS: WELCHOL PO SCH (20:53)
[2018-02-14] MEDS: LIPITOR PO SCH (20:53)
[2018-02-15] MEDS: VANCOMYCIN 1,750 MG in NS 250 ML IV SCH ×2 (00:59→12:37)
[2018-02-15] MEDS: DUONEB (A & A) INH SCH ×6 (03:20→23:07)
[2018-02-15] MEDS: ZOSYN 3.375 GM in NS 50 ML IV SCH ×3 (04:03→17:41)
[2018-02-15] MEDS: TESSALON PO PRN ×2 (04:03→20:56)
[2018-02-15] MEDS: ROBAXIN PO PRN ×2 (04:59→20:56)
[2018-02-15] MEDS: SYNTHROID PO SCH (06:11)
[2018-02-15 07:18] LABS: BASO# 0.06 X1000 (0.0-0.2); BASO% 0.3 % (0.0-0.8); EOS# 0.12 X1000 (0.0-0.7); EOS% 0.6 % (0.0-10.0); HEMATOCRIT 43.2 % (37.0-47.0); IMM GRAN# 1.04 X1000 (0.0-0.04); IMM GRAN% 5.4 % (0.0-0.5); LYMPH# 1.28 X1000 (1.2-3.4); LYMPH% 6.7 % (20.5-51.1); MCH 28.3 PG (27-31); MCHC 32.4 g/dL (33-37); MCV 87.3 FL (81-99); MONO# 1.08 X1000 (0.11-0.59); MONO% 5.6 % (1.7-9.3); MPV 9.3 FL (7.4-10.4); NEUT# 15.61 X1000 (1.4-6.5); NEUT% 81.4 % (42.2-75.2); PLT 236 X1000 (130-400); RBC 4.95 XMIL (4.2-5.4); RDW 15.3 % (11.5-14.5); WBC 19.19 X1000 (4.8-10.8)
[2018-02-15 07:51] LABS: LYMPHS 6 % (21-51); MONO 4 % (1-9); SEGS 84 % (42-75)
[2018-02-15 07:52] LABS: AGAP 14; BUN 20 mg/dL (8-22); CALCIUM 8.8 mg/dL (8.8-10.2); CHLORIDE 104 mmol/L (98-107); COSMO 286; CREATININE 0.6 mg/dL (0.5-0.9); ESTIMATED GFR > 60; GLUCOSE 97 mg/dL (70-104); POTASSIUM 3.8 mmol/L (3.5-5.1); SODIUM 142 mmol/L (136-145); TCO2 24 mmol/L (25-35)
[2018-02-15] MEDS: SYMBICORT 80/4.5 MICROGM INHALER INH SCH ×2 (08:08→19:20)
[2018-02-15] MEDS: VITAMIN C PO SCH (09:39)
[2018-02-15] MEDS: SOLU-MEDROL IV SCH (09:40)
--- NOTE | 2018-02-15 11:18 | PROGRESS NOTE ---
DATE: 02/15/2018 SUBJECTIVE: This patient is still complaining of shortness of breath. WBC better compared with yesterday. Decreased from 25,000 to 19,000. Also, I have decreased the amount of steroids from 40 IV daily to 20 IV daily. Patient has been followed by Dr. James. We will continue for now with the same management. OBJECTIVE: Vital Signs: Temperature 97.9 degrees, pulse 116, respiratory rate 18, blood pressure 120/63, oxygen saturation 94% on 2 L of nasal cannula. HEENT: Head normocephalic. No trauma. PERRLA. Neck: Supple. No JVD. No masses. Central trachea. Chest: Decreased breath sounds globally with some crepitus and rhonchi at the bases, and some faint expiratory wheezing that is scattered bilaterally. Abdomen: Soft, obese, protuberant, nontender, nondistended. No hepatosplenomegaly. Extremities: There is 2+ lower extremity edema. No clubbing. No cyanosis. Neurological Examination: Alert and oriented x3. No focal deficits. Laboratory: WBC 19.1, hemoglobin 14, hematocrit 43.2, platelets 236,000. Sodium 142, potassium 3.8, chloride 104, bicarbonate 24, BUN 20, creatinine 0.6, glucose 97, calcium 8.8. ASSESSMENT AND PLAN: 1. Acute hypoxemic respiratory failure secondary to pneumonia and bronchospasm. Likely, this is just reactive airway disease. Continue with the same management for now. Pulmonary department is following this patient closely. Continue with antibiotics. 2. Pneumonia. X-ray looks better. Some atelectasis at the bases. 3. History of cerebral palsy. Aware. 4. Morbid obesity. Diet and exercise have been discussed. 5. Hypothyroidism. Continue with levothyroxine. 6. Hyperlipidemia. Continue with atorvastatin. 7. History of allergies. Continue with fexofenadine. 8. Likely sleep apnea. Aware. 9. Herpes labialis, improving. cc: Matt Moreno MD
[2018-02-15] MEDS: SINGULAIR PO SCH (20:56)
[2018-02-15] MEDS: ALLEGRA PO SCH (20:56)
[2018-02-15] MEDS: PROTONIX IV SCH (20:57)
[2018-02-15] MEDS: LIPITOR PO SCH (20:57)
[2018-02-15] MEDS: WELCHOL PO SCH (20:57)
[2018-02-16] MEDS: VANCOMYCIN 1,750 MG in NS 250 ML IV SCH ×2 (00:08→12:35)
[2018-02-16] MEDS: ZOSYN 3.375 GM in NS 50 ML IV SCH ×4 (02:07→21:42)
[2018-02-16] MEDS: DUONEB (A & A) INH SCH ×6 (03:15→23:00)
[2018-02-16] MEDS: TESSALON PO PRN ×3 (03:43→21:43)
[2018-02-16] MEDS: SYNTHROID PO SCH (06:03)
[2018-02-16 07:03] LABS: BASO# 0.03 X1000 (0.0-0.2); BASO% 0.2 % (0.0-0.8); EOS# 0.17 X1000 (0.0-0.7); EOS% 1.1 % (0.0-10.0); HEMATOCRIT 43.7 % (37.0-47.0); IMM GRAN# 0.58 X1000 (0.0-0.04); IMM GRAN% 3.8 % (0.0-0.5); LYMPH# 1.32 X1000 (1.2-3.4); LYMPH% 8.8 % (20.5-51.1); MCH 28.1 PG (27-31); MCV 87.6 FL (81-99); MONO# 1.28 X1000 (0.11-0.59); MONO% 8.5 % (1.7-9.3); MPV 9.4 FL (7.4-10.4); NEUT# 11.69 X1000 (1.4-6.5); NEUT% 77.6 % (42.2-75.2); PLT 199 X1000 (130-400); RBC 4.99 XMIL (4.2-5.4); RDW 15.5 % (11.5-14.5); WBC 15.07 X1000 (4.8-10.8)
[2018-02-16 07:25] LABS: AGAP 12; ALB/GLOB RATIO 1.3; ALBUMIN 3.4 g/dL (3.5-5.0); ALKALINE PHOSPHATASE 88 U/L (32-104); BUN 15 mg/dL (8-22); CALCIUM 8.2 mg/dL (8.8-10.2); CHLORIDE 101 mmol/L (98-107); COSMO 274; CREATININE 0.5 mg/dL (0.5-0.9); ESTIMATED GFR > 60; GLUCOSE 90 mg/dL (70-104); GOT 25 U/L (10-30); GPT 53 U/L (10-36); POTASSIUM 3.7 mmol/L (3.5-5.1); SODIUM 137 mmol/L (136-145); TCO2 24 mmol/L (25-35); TOTAL BILIRUBIN 0.71 mg/dL (0.20-1.00)
[2018-02-16] MEDS: SYMBICORT 80/4.5 MICROGM INHALER INH SCH ×2 (07:48→19:13)
[2018-02-16] MEDS: SOLU-MEDROL IV SCH (08:45)
[2018-02-16] MEDS: PROTONIX IV SCH ×2 (08:45→21:42)
[2018-02-16] MEDS: VITAMIN C PO SCH (08:45)
[2018-02-16] MEDS: WELCHOL PO SCH (21:42)
[2018-02-16] MEDS: SODIUM CHLORIDE 0.9% INJ SCH (21:42)
[2018-02-16] MEDS: SINGULAIR PO SCH (21:43)
[2018-02-16] MEDS: LIPITOR PO SCH (21:43)
[2018-02-16] MEDS: ALLEGRA PO SCH (21:43)
[2018-02-17] MEDS: VANCOMYCIN 1,750 MG in NS 250 ML IV SCH ×2 (00:29→12:39)
--- NOTE | 2018-02-17 02:31 | PULMONOLOGY CONSULTATION ---
DATE: 02/16/2018 SUBJECTIVE: The patient is awake, alert and conversant. She has some fever blister on her mouth and some pain on her lip and some pain in her mouth. She reports her shortness of breath has diminished. OBJECTIVE: General: Objective. The patient is awake, alert and oriented. She has been afebrile for the last 24 hours. Vital signs: Blood pressure 1136/60, heart rate 111, respiratory rate 18, oxygen saturation 95% on nasal cannula. HEENT: Pupils are equal and reactive. She has some herpetic lesions on her mouth and a small ulcer on the lateral side of he tongue. Neck: Supple. Chest: Reveals mild prolonged expiratory phase with faint wheezing. Cardiac: S1 and S2. Abdomen: Soft without hepatosplenomegaly. Extremities: Reveal chronic edema. LABORATORY DATA: White blood count 15,000, hemoglobin 14.0, platelet count 199,000. Sodium 137, potassium 3.7, chloride 101, bicarbonate 24, BUN 15, creatinine 0.5. There is no new microbiology data. IMPRESSION: The patient is a 52-year-old with morbid obesity and a BMI greater than 55, acute hypoxemic respiratory failure, pneumonia, and bronchospasm. Clinically she appears to be improving. RECOMMENDATIONS: 1. Continue to wean steroids as tolerated. 2. Consider sending a procalcitonin level to see if the antibiotics can be discontinued. 3. Continue bronchodilators. cc: Ravinder Pham MD
[2018-02-17] MEDS: ZOSYN 3.375 GM in NS 50 ML IV SCH ×4 (02:51→23:35)
[2018-02-17] MEDS: TESSALON PO PRN ×2 (03:04→23:36)
[2018-02-17] MEDS: DUONEB (A & A) INH SCH ×6 (03:09→23:40)
[2018-02-17] MEDS: SYNTHROID PO SCH (06:22)
[2018-02-17 07:09] LABS: BASO# 0.02 X1000 (0.0-0.2); BASO% 0.2 % (0.0-0.8); EOS# 0.14 X1000 (0.0-0.7); EOS% 1.1 % (0.0-10.0); HEMATOCRIT 42.6 % (37.0-47.0); HEMOGLOBIN 13.9 g/dL (12.0-16.0); IMM GRAN# 0.32 X1000 (0.0-0.04); IMM GRAN% 2.4 % (0.0-0.5); LYMPH# 1.25 X1000 (1.2-3.4); LYMPH% 9.4 % (20.5-51.1); MCH 28.7 PG (27-31); MCHC 32.6 g/dL (33-37); MCV 87.8 FL (81-99); MONO# 1.18 X1000 (0.11-0.59); MONO% 8.9 % (1.7-9.3); MPV 9.5 FL (7.4-10.4); NEUT# 10.34 X1000 (1.4-6.5); PLT 179 X1000 (130-400); RBC 4.85 XMIL (4.2-5.4); RDW 15.6 % (11.5-14.5); WBC 13.25 X1000 (4.8-10.8)
[2018-02-17 07:30] LABS: AGAP 14; BUN 17 mg/dL (8-22); CALCIUM 8.6 mg/dL (8.8-10.2); CHLORIDE 102 mmol/L (98-107); COSMO 281; CREATININE 0.7 mg/dL (0.5-0.9); ESTIMATED GFR > 60; GLUCOSE 101 mg/dL (70-104); MAGNESIUM 2.1 mg/dL (1.5-2.7); POTASSIUM 3.5 mmol/L (3.5-5.1); SODIUM 140 mmol/L (136-145); TCO2 24 mmol/L (25-35)
[2018-02-17] MEDS: SYMBICORT 80/4.5 MICROGM INHALER INH SCH ×2 (07:52→20:13)
--- NOTE | 2018-02-17 08:34 | Diag Imaging Result Doc PS360 ---
CHEST-PORTABLE - 02/17/2018 INDICATION: dyspnea COMPARISON: 02/14/2018 FINDINGS: Stable right hemidiaphragm elevation. No focal infiltrates, pneumothorax, or pleural effusion. Heart size remains normal. IMPRESSION: No acute disease or change from prior. Electronically signed by Shahzad Rain 02/17/2018 8:31 AM
[2018-02-17] MEDS: VITAMIN C PO SCH (09:00)
[2018-02-17] MEDS: SOLU-MEDROL IV SCH (09:02)
[2018-02-17] MEDS: MOTRIN PO PRN (09:03)
[2018-02-17] MEDS: PROTONIX IV SCH ×2 (09:03→23:36)
--- NOTE | 2018-02-17 11:24 | PROGRESS NOTE ---
DATE: 02/17/2018 SUBJECTIVE: This patient today is feeling better. She is not complaining of too much shortness of breath. White blood cells trending down. I will continue with the same management. Pulmonary department following this patient. I think we are going to be able to discharge this patient at the beginning of the next week. OBJECTIVE: Vital Signs: Temperature 97.7, pulse 115, respiratory rate 17, blood pressure 115/65, oxygen saturation 89 on room air. HEENT: Head normocephalic. No trauma. PERRLA. Neck: Supple. No JVD. No masses. Central trachea. Chest: Decreased breath sounds globally with some crepitus and rhonchi at the bases, faint expiratory wheezing scattered bilaterally. Abdomen: Soft, protuberant, nontender, nondistended. No hepatosplenomegaly. Extremity: 2+ lower extremity edema. No clubbing. No cyanosis. Neurological: The patient is alert. She is oriented x3. No focal deficits. LABORATORY: WBC 13.2, hemoglobin 13.9, hematocrit 42.6, platelets 179. Sodium 140, potassium 3.5, chloride 102, bicarbonate 26, BUN 17, creatinine 0.7, glucose 101. Calcium 8.6, magnesium 2.1. ASSESSMENT AND PLAN: 1. Acute hypoxemic respiratory failure secondary to pneumonia and bronchospasm. Likely, this is a reactive airway disease. Continue with the same management for now. Pulmonary Department following this patient. Continue with antibiotics for now which I will stop probably at the beginning of next week as well. 2. Pneumonia. X-ray looks better. No infiltrates. 3. History of cerebral palsy, aware. 4. Morbid obesity. Diet and exercise has been discussed. 5. Hypothyroidism. Continue with levothyroxine. 6. Hyperlipidemia. Continue with atorvastatin. 7. History of allergies. Continue with fexofenadine. 8. Likely sleep apnea. Aware. 9. Herpes labialis. Improving. cc: Matt Moreno MD
--- NOTE | 2018-02-17 16:50 | CONSULTATION ---
DATE OF CONSULTATION: 02/17/2018 REASON FOR CONSULTATION: Blood in stool. HISTORY OF PRESENT ILLNESS: This is a 52-year-old white female who was admitted to the hospital on 02/04/2018 for asthmatic bronchitis exacerbation. Patient has a history of cerebral palsy, hyperlipidemia, chronic lower extremity lymphedema. 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 She reports having a colonoscopy about 3 years ago. She denied having polyps. She states she has been treated by Dr. Franco for IBS, diarrhea and had been on Welchol. Since she has been in the hospital she had some problems with constipation and was given laxatives. She felt like the bleeding the nurses saw could have been related to her recent constipation. She denies ever seeing blood in the stool at home. She has denied abdominal pain except when she coughs, she has denied nausea or vomiting. PAST MEDICAL HISTORY: Cerebral palsy, lymphedema, hyperlipidemia. PAST SURGICAL HISTORY: Right knee surgery, hysterectomy. ALLERGIES: Latex causing a rash, hydrocodone itching, prednisone unknown reaction, morphine itching. HOME MEDICATIONS: Tylenol 650 mg every 6 hours as needed, albuterol inhaler as needed, vitamin C daily, Lipitor 1 tablet every night, Welchol 3750 mg every night, Faye 180 mg daily, Flonase 1 spray inhaler twice a day as needed, Motrin 3 times a day as needed, Combivent inhaler, Synthroid every day, Imodium 2 to 4 every 12 hours as needed, Robaxin 750 mg every 6 hours as needed, Prilosec daily, Maxalt daily as needed. SOCIAL HISTORY: No reports of tobacco use. Reports occasional alcohol use. OBJECTIVE: Vital signs: Temperature 97.7 degrees, pulse 116, respirations 16, blood pressure 115/65. General: Patient is awake and alert. No acute distress. Respiratory: Lung sounds with some wheezing. Abdomen: Is obese otherwise nontender, positive bowel sounds. Extremities: Lower extremity edema noted. Neurological: Cranial nerves 2-12 grossly intact. LABORATORY: Hematology. WBC 13.25, hemoglobin 13.9, hematocrit 42.6, MCV 87.8 , platelet 179,000. Chemistry. Sodium 140, potassium 3.5, chloride 102, CO2 24, BUN 17, creatinine 0.7, glucose 101, total bilirubin 0.71, AST 25, ALT 53, alkaline phosphatase 88. IMAGING: Chest x-ray on 02/17/2018 showed no acute changes. Slight right hemidiaphragm elevation with no infiltrates or pleural effusion noted. ASSESSMENT AND PLAN: 1. Acute hypoxic respiratory failure, pneumonia/bronchospasms, patient is on respiratory management. Patient has been seen by Dr. Pham. 2. History of cerebral palsy. 3. Obesity. 4. Other medical problems including hypothyroidism, hyperlipidemia. 5. Reports of irritable bowel syndrome diarrhea and had been taking Welchol at home. 6. Constipation recently. Patient had some constipation, was given laxative, she has had a documented bright red blood in her stool on February 15. Her hemoglobin and hematocrit have remained stable. Bleeding likely due to recent constipation. We will monitor for further bleeding. She had a colonoscopy approximately [address] Franco. Will continue to monitor hemoglobin and hematocrit, monitor for further active bleeding. Further plans will be made according the patient's progress. Since patient is been seen by Dr. Franco we will refer care to Dr. Gonzalez/Dr. Antonio on Monday. Will continue to follow over the weekend and further plans to be made. I will discuss this case with Dr. Monk. Thank you for this consultation. Dictated by DORA Chauhan for Raulito Monk MD cc: DORA James MD [facility]
[2018-02-17] MEDS: LIPITOR PO SCH (23:36)
[2018-02-17] MEDS: WELCHOL PO SCH (23:36)
[2018-02-17] MEDS: ALLEGRA PO SCH (23:36)
[2018-02-17] MEDS: SODIUM CHLORIDE 0.9% INJ SCH (23:36)
[2018-02-17] MEDS: SINGULAIR PO SCH (23:37)
[2018-02-18] MEDS: VANCOMYCIN 1,750 MG in NS 250 ML IV SCH ×3 (00:27→23:29)
[2018-02-18] MEDS: ZOSYN 3.375 GM in NS 50 ML IV SCH ×4 (02:43→20:35)
[2018-02-18] MEDS: MOTRIN PO PRN ×2 (02:49→23:28)
[2018-02-18] MEDS: DUONEB (A & A) INH SCH ×6 (03:31→23:15)
[2018-02-18] MEDS ORDERED: LASIX IV ONE (06:00)
[2018-02-18] MEDS: TESSALON PO PRN ×3 (06:07→20:30)
[2018-02-18] MEDS: SYNTHROID PO SCH (06:08)
[2018-02-18] MEDS: SYMBICORT 80/4.5 MICROGM INHALER INH SCH ×2 (07:30→19:20)
[2018-02-18] MEDS: SOLU-MEDROL IV SCH (11:44)
[2018-02-18] MEDS: VITAMIN C PO SCH (11:44)
[2018-02-18] MEDS: PROTONIX IV SCH ×2 (11:44→20:35)
--- NOTE | 2018-02-18 12:23 | PULMONOLOGY PROGRESS NOTE ---
DATE: 02/17/2018 SUBJECTIVE: The patient is awake, alert, and conversant. She reports her breathing continues to slowly improve. She has an oral herpetic outbreak and reports her mouth pain is slowly decreasing. OBJECTIVE: Vital signs: BP 128/71, heart rate 112, respiratory rate 17, oxygen saturation 95% on 2 L per nasal cannula. HEENT: Pupils are equal and reactive. Oropharynx is clear except for herpetic lesions. Neck: Supple. Chest: Shallow breath sounds bilaterally with faint wheezing at the end of exhalation. Cardiac: Distant heart sounds. Normal S1, normal S2. Abdomen: Soft and obese without hepatosplenomegaly. Extremities: Trace to 1+ peripheral edema. IMPRESSION: A 52-year-old with: 1. Morbid obesity 2. Acute hypoxemic respiratory failure. 3. Pneumonia. 4. Bronchospasm. She continues to slowly improve. RECOMMENDATIONS: 1. Continue current steroid dosing. 2. Continue antibiotics pending results of procalcitonin level. 3. Single dose of Lasix early tomorrow morning, given her morbid obesity, propensity to retain fluid, and steroid use. 4. Additional recommendations pending hospital course. cc: Ravinder Pham MD [facility]
--- NOTE | 2018-02-18 13:10 | PROGRESS NOTE ---
DATE: 02/18/2018 SUBJECTIVE: Patient is feeling about the same compared with yesterday. She is still having some shortness of breath. She has been wheezing a little bit. Continue with the same management. OBJECTIVE: Vital Signs: Temperature 97.9 degrees, pulse 105, respiratory rate 18, blood pressure 122/72, oxygen saturation 95 on 2 L of nasal cannula. HEENT: Head normocephalic. No trauma. PERRLA. Neck: Supple. No JVD. No masses. Central trachea. Chest: Decreased breath sounds globally with some crepitus and rhonchi at the bases, faint expiratory wheezing scattered bilaterally. Abdomen: Soft, protuberant, nontender, nondistended. No hepatosplenomegaly. Extremities: There is 2+ extremity edema. No clubbing. No cyanosis. Neurological Examination: The patient is alert. She is oriented x3. No focal deficits. Laboratory: No lab work done today. ASSESSMENT AND PLAN: 1. Acute hypoxemic respiratory failure secondary to pneumonia and possible bronchospasm/reactive airway disease. Continue with the same management for now. Pulmonary department on board. She has received a dose of Lasix today. Continue with antibiotics for now, which I will probably stop at the beginning of the next week. Procalcitonin level has been ordered already. 2. Pneumonia. X-ray looks better. No infiltrates. 3. History of cerebral palsy. Aware. 4. Morbid obesity. Diet and exercise have been recommended. 5. Hypothyroidism. Continue with levothyroxine. 6. Hyperlipidemia. Continue with atorvastatin. 7. History of allergies. Continue with fexofenadine. 8. Likely sleep apnea. Aware. 9. Herpes labialis, improving. cc: Matt Moreno MD
--- NOTE | 2018-02-18 20:30 | PULMONOLOGY PROGRESS NOTE ---
DATE: 02/18/2018 SUBJECTIVE: Patient is awake, alert and conversant. She reports her mouth is sore, but her shortness of breath is slightly improved. OBJECTIVE: Vital Signs: BP 122/72, heart rate 112, respiratory rate 18, oxygen saturation 94% on 2 L per nasal cannula. HEENT: Pupils are equal and reactive. The patient has some herpetic outbreak which is crusting. Neck: Supple. Chest: Reveals good air entry bilaterally with faint wheezing noted. Cardiac: S1, S2. Abdomen: Obese and soft. Extremities: Reveal 1+ peripheral edema. LABORATORY: No new microbiology data. No new chemistries or CBC. IMPRESSION: A 52-year-old with morbid obesity and a body mass index greater that 55, acute hypoxemia, bronchospasm, and pneumonia. She appears to be improving. RECOMMENDATIONS: 1. Continue antibiotics pending results of procalcitonin level. 2. Wean oxygen as tolerated. 3. Obtain 2-view chest x-ray tomorrow morning. cc: Ravinder Pham MD
[2018-02-18] MEDS: WELCHOL PO SCH (20:31)
[2018-02-18] MEDS: ALLEGRA PO SCH (20:31)
[2018-02-18] MEDS: LIPITOR PO SCH (20:31)
[2018-02-18] MEDS: SINGULAIR PO SCH (20:32)
[2018-02-19] MEDS: ZOSYN 3.375 GM in NS 50 ML IV SCH ×3 (02:12→15:30)
[2018-02-19] MEDS: DUONEB (A & A) INH SCH ×6 (03:26→23:07)
[2018-02-19] MEDS: SYNTHROID PO SCH (06:46)
[2018-02-19 06:59] LABS: HEMATOCRIT 42.7 % (37.0-47.0); HEMOGLOBIN 13.6 g/dL (12.0-16.0); MCHC 31.9 g/dL (33-37); MPV 9.7 FL (7.4-10.4); RBC 4.85 XMIL (4.2-5.4); RDW 15.3 % (11.5-14.5); WBC 9.88 X1000 (4.8-10.8)
--- NOTE | 2018-02-19 07:09 | Diag Imaging Result Doc PS360 ---
EXAM: CHEST-2 VIEWS HISTORY: abnormal exam TECHNIQUE: Chest two views COMPARISON: 02/17/2018 FINDINGS: Poor inspiratory effort. The right hemidiaphragm is elevated. No cardiomegaly. No vascular distention. No pleural effusions. No consolidation. IMPRESSION: Stable chest Electronically signed by Nino Gonzalez 02/19/2018 7:07 AM
[2018-02-19 07:27] LABS: AGAP 14; BUN 16 mg/dL (8-22); CALCIUM 8.7 mg/dL (8.8-10.2); CHLORIDE 101 mmol/L (98-107); COSMO 277; CREATININE 0.6 mg/dL (0.5-0.9); ESTIMATED GFR > 60; GLUCOSE 98 mg/dL (70-104); POTASSIUM 3.3 mmol/L (3.5-5.1); SODIUM 138 mmol/L (136-145); TCO2 23 mmol/L (25-35)
[2018-02-19] MEDS: SYMBICORT 80/4.5 MICROGM INHALER INH SCH ×2 (08:22→19:45)
[2018-02-19] MEDS ORDERED: KLOR-CON PO ONE (09:00)
--- NOTE | 2018-02-19 09:28 | PROGRESS NOTE ---
DATE: 02/19/2018 SUBJECTIVE: Patient reported no further bleeding. She has been on treatment for respiratory distress. She is doing well. She denies any GI symptoms today. Denies any abdominal pain, nausea, vomiting. Tolerating her diet. OBJECTIVE: Vitals: Temperature 98 degrees Fahrenheit, pulse is 105 per minute, breathing 18, blood pressure 142/65. Abdomen: Obese, soft, nontender. Bowel sounds audible. LABORATORIES: Reviewed. Hemoglobin had remained stable. Her last hemoglobin and hematocrit available was 13.9 and 42.6 respectively. IMPRESSION: Lower gastrointestinal bleed, most likely hemorrhoidal secondary to her respiratory ailment and coughing. She has had some rectal bleeding from hemorrhoids. She tells me she has had a colonoscopy [address] Franco. At this point, no new suggestions. Continue current treatment for her respiratory problems. From a GI perspective, she does not need any urgent intervention. Dr. Antonio and Dr. Gonzalez will be available tomorrow, that is Monday, to pick her up for further care. cc: Raulito Monk MD
--- NOTE | 2018-02-19 10:41 | PROGRESS NOTE ---
DATE: 02/19/2018 SUBJECTIVE: Patient is resting in bed. She is feeling better. She denies any nausea or vomiting. She had a bowel movement today which had some blood mixed with it. She had a colonoscopy done [address] Franco. She does not recall the results of the procedure. She has been in the hospital since February 04, 2018 for bronchitis and this is improving. She is on 2 L nasal cannula. OBJECTIVE: Vital signs: Temperature 98.1, pulse rate of 107, respiratory rate of 15, blood pressure of 140/70, saturating 94% on 2 L nasal cannula. Body weight of 287 pounds. BMI 58 kg/m2. General: Morbidly obese, lying in bed, in no acute distress. HEENT : No pallor. No icterus. Pupils equal, reactive to light. Neck: Supple. Abdomen: Morbidly obese. No guarding. No rebound. Mild discomfort in the periumbilical region. Extremities: Bilateral lower extremity edema noted. Neurologic: She is awake, alert, oriented x3. LABS: Hemoglobin and hematocrit are 13.6 and 42.7, white count of 9.8, platelet count 170,000. Sodium 138, potassium 3.3, chloride 101, bicarb 23, anion gap of 14, BUN of 16, creatinine 0.6, glucose of 90, calcium 8.7. Liver enzymes: AST 25, ALT 53, alkaline phosphatase 88, total protein 6, albumin of 3.4. Her liver enzymes were normal in the past so this is a new elevation. A CT scan was done on 02/09/2018 which showed atelectasis and/or no bronchopneumonia, pulmonary emboli. Her chest x-ray done today showed stable chest. Poor inspiratory effort. The right hemidiaphragm is elevated. No cardiomegaly. No vascular distention. No pleural effusions. No consolidation. IMPRESSIONS: 1. Rectal bleeding. 2. Elevated liver enzymes. 3. Morbid obesity, body mass index 58. 4. Pneumonia and acute bronchitis and bronchospasm, being followed by Dr. Pham. 5. Hypothyroidism. 6. Hyperlipidemia. RECOMMENDATIONS: 1. We will switch the patient to a clear liquid diet today. We will watch her blood counts. Her blood counts have been stable. We will discontinue the ibuprofen. We will start her on Proctosol HC suppositories at bedtime. 2. She will continue on MiraLAX daily. We will hold MiraLAX for more than 3 bowel movements in 24 hours. We will keep her on GI prophylaxis. 3. I discussed the options of doing flexible sigmoidoscopy or colonoscopy tomorrow. We will also discontinue Welchol as it can make her constipated. So, I have reviewed the above plan of care with the patient including the potential for doing flexible sigmoidoscopy or colonoscopy tomorrow if she can finish up the prep. The risks, benefits, indications, and alternatives to the procedure were discussed with the patient and all questions answered. Please call us with any questions. cc: MD Leo Blanco MD [facility]
--- NOTE | 2018-02-19 11:01 | PROGRESS NOTE ---
DATE: 02/19/2018 SUBJECTIVE: This patient is about the same compared with yesterday. She is still having some shortness of breath. She looks anxious. Her wheezing is better though. Continue with the same management. She has been scheduled for a colonoscopy tomorrow. OBJECTIVE: Vital Signs: Temperature 98.1 degrees, pulse 107, respiratory rate 15, blood pressure 140/70, oxygen saturation 95% on 2 L of nasal cannula. HEENT: Head normocephalic. No trauma. PERRLA. Neck: Supple. No JVD. No masses. Central trachea. Chest: Decreased breath sounds globally, with some crepitus and rhonchi at the bases. Faint expiratory wheezing scattered bilaterally. Abdomen: Soft, protuberant, nontender, nondistended. No hepatosplenomegaly. Extremities: 2+ extremity edema. No clubbing. No cyanosis. Neurological: The patient is alert and oriented x3. No focal deficits. LABORATORY: WBC 9.8, hemoglobin 13.6, hematocrit 42.7, platelets 170,000. Sodium 138, potassium 3.3, chloride 101, bicarbonate 23, BUN 16, creatinine 0.6, glucose 98, calcium 8.7. ASSESSMENT AND PLAN: 1. Acute hypoxemic respiratory failure secondary to pneumonia and possible bronchospasm/reactive airway disease. Continue with the same management for now. Pulmonary Department on board. She has received a dose of Lasix yesterday. Continue with antibiotics for now, which we will probably stop as soon as we get the procalcitonin level that has been ordered already last week. 2. Pneumonia. X-ray looks better. No infiltrates. 3. History of cerebral palsy. Aware. 4. Morbid obesity. Diet and exercise has been recommended. 5. Hypothyroidism. Continue levothyroxine. 6. Hyperlipidemia. Continue with atorvastatin. 7. History of allergies. Continue with fexofenadine. 8. Likely sleep apnea. Aware. 9. Herpes labialis. Improving. 10. Lower GI bleed. She has been scheduled for colonoscopy tomorrow. Overall, this patient is doing fairly okay. She is still using oxygen. She is still getting short of breath with physical activity. She looks anxious. She wants to go to a rehab center. set up worker has been notified. Tomorrow, she has been scheduled for a colonoscopy. cc: Matt Moreno MD
[2018-02-19] MEDS: VITAMIN C PO SCH (11:03)
[2018-02-19] MEDS: SOLU-MEDROL IV SCH (11:05)
[2018-02-19] MEDS: MIRALAX PO SCH (11:14)
[2018-02-19] MEDS: PROTONIX IV SCH ×2 (11:14→21:14)
[2018-02-19] MEDS ORDERED: GOLYTELY PO ONE (14:00)
[2018-02-19] MEDS: VANCOMYCIN 1,750 MG in NS 250 ML IV SCH (14:11)
[2018-02-19] MEDS: ALLEGRA PO SCH (21:16)
[2018-02-19] MEDS: SINGULAIR PO SCH (21:16)
[2018-02-19] MEDS: LIPITOR PO SCH (21:16)
[2018-02-20] MEDS: ZOSYN 3.375 GM in NS 50 ML IV SCH ×4 (00:04→18:30)
[2018-02-20] MEDS: VANCOMYCIN 1,750 MG in NS 250 ML IV SCH (01:40)
[2018-02-20] MEDS: DUONEB (A & A) INH SCH ×6 (03:15→23:26)
[2018-02-20] MEDS: SYNTHROID PO SCH (05:59)
[2018-02-20 06:53] LABS: BASO# 0.04 X1000 (0.0-0.2); BASO% 0.5 % (0.0-0.8); EOS# 0.03 X1000 (0.0-0.7); EOS% 0.4 % (0.0-10.0); HEMATOCRIT 41.5 % (37.0-47.0); HEMOGLOBIN 13.4 g/dL (12.0-16.0); IMM GRAN# 0.06 X1000 (0.0-0.04); IMM GRAN% 0.8 % (0.0-0.5); LYMPH# 1.41 X1000 (1.2-3.4); MCH 28.3 PG (27-31); MCHC 32.3 g/dL (33-37); MCV 87.6 FL (81-99); MONO# 0.88 X1000 (0.11-0.59); MONO% 11.8 % (1.7-9.3); MPV 9.2 FL (7.4-10.4); NEUT# 5.01 X1000 (1.4-6.5); NEUT% 67.5 % (42.2-75.2); PLT 165 X1000 (130-400); RBC 4.74 XMIL (4.2-5.4); WBC 7.43 X1000 (4.8-10.8)
[2018-02-20 07:26] LABS: AGAP 11; BUN 10 mg/dL (8-22); CALCIUM 7.9 mg/dL (8.8-10.2); CHLORIDE 102 mmol/L (98-107); COSMO 272; CREATININE 0.5 mg/dL (0.5-0.9); ESTIMATED GFR > 60; GLUCOSE 87 mg/dL (70-104); POTASSIUM 3.2 mmol/L (3.5-5.1); SODIUM 137 mmol/L (136-145); TCO2 24 mmol/L (25-35)
[2018-02-20] MEDS: SYMBICORT 80/4.5 MICROGM INHALER INH SCH ×2 (07:28→19:34)
[2018-02-20] MEDS: SOLU-MEDROL IV SCH (09:06)
[2018-02-20] MEDS: VITAMIN C PO SCH (09:06)
[2018-02-20] MEDS: MIRALAX PO SCH (09:06)
[2018-02-20] MEDS: PROTONIX IV SCH ×2 (09:07→20:53)
--- NOTE | 2018-02-20 11:47 | PROGRESS NOTE ---
DATE: 02/16/2018 SUBJECTIVE: This patient seems to be doing better today. She is still complaining of shortness of breath but better compared with yesterday. Her WBC decreased from 19,000 to 15,000. I will continue with the same management. Hopefully, this patient can be discharged at the beginning of the next week. Pulmonary Department on board. OBJECTIVE: Vital Signs: Temperature 97.7 degrees, pulse 114, respiratory rate 20, blood pressure 131/65, oxygen saturation 91% on 2 L of nasal cannula. HEENT: Head normocephalic. No trauma. PERRLA. Neck: Supple. I cannot see JVD because of her neck size. No masses, central trachea. Chest: Decreased breath sounds globally with some crepitus and rhonchi at the bases. Mild faint scattered expiratory wheezing. Abdomen: Soft, obese, protuberant, nontender, nondistended. No hepatosplenomegaly. Extremities: 1 to 2+ lower extremity edema. No clubbing. No cyanosis. Neurological: The patient is alert and oriented x3. No focal deficits. LABORATORY: WBC 15, hemoglobin 14, hematocrit. 43.7, platelets 199,000. Sodium 137, potassium 3.7, chloride 101, bicarbonate 24, BUN 15, creatinine 0.5, glucose 90, calcium 8.2. Albumin 3.4. ASSESSMENT AND PLAN: 1. Acute hypoxemic respiratory failure secondary to pneumonia and likely reactive airway disease. Continue with the same management for now. Pulmonary Department following this patient as well. Continue with antibiotics. 2. Pneumonia. X-ray looks better, some atelectasis at the basis. 3. History of cerebral palsy. Aware. 4. Morbid obesity. Diet and exercise has been discussed. 5. Hypothyroidism. Continue with levothyroxine. 6. Hyperlipidemia. Continue with atorvastatin. 7. History of allergies. Continue with fexofenadine. 8. Likely sleep apnea. Aware. Hopefully, she can get a sleep study as an outpatient. 9. Herpes labialis, improving. cc: Matt Moreno MD
[2018-02-20] MEDS: VERSED ONE ×2 (11:58→16:44)
[2018-02-20] MEDS ORDERED: DIPRIVAN 1% ONE (12:04)
--- NOTE | 2018-02-20 12:55 | OPERATIVE NOTE ---
PROCEDURE DATE: 02/20/2018 PROCEDURE: Colonoscopy. PREOPERATIVE DIAGNOSIS: Rectal bleeding. POSTOPERATIVE DIAGNOSIS: Internal hemorrhoids, grade 2. DESCRIPTION OF PROCEDURE: After informed consent and adequate intravenous sedation by Anesthesia, the scope introduced into the rectum, all the way into the transverse colon. There was solid stool in the right colon. No signs of any bleeding in the entire colon, except the patient has friable grade 2 internal hemorrhoids. The scope was withdrawn. The patient tolerated the procedure well, without any immediate complications. RECOMMENDATION: Continue MiraLAX and suppositories. cc: Brianna Gonzalez MD
--- NOTE | 2018-02-20 18:37 | PROGRESS NOTE ---
DATE: 02/20/2018 SUBJECTIVE: Patient resting in bed not in any obvious distress. OBJECTIVE: Vital signs: Temperature 98.3 degrees, pulse 123, respiration 22, blood pressure 132/64, oxygen saturation 98%. HEENT: Atraumatic, normocephalic. Cardiovascular: S1, S2. Respiratory: Has evidence of good air entry bilaterally. Abdomen: Soft, nontender. No masses felt. Extremities: Has 1+ edema in both lower extremities. Central nervous system: No obvious focal deficits noted. LABS: WBC 7.453, hematocrit 41.5 with a platelet count of 165,000, sodium is 137, potassium 3.2, chloride 102, bicarb is 24, BUN is 10, creatinine 0.5. ASSESSMENT AND PLAN: 1. Pneumonia. Continue antibiotics. 2. Gastrointestinal bleed. Patient is status post colonoscopy, patient noted to have internal hemorrhoids. 3. History of cerebral palsy aware. 4. Obesity. Patient will need to be on diet and exercise program. 5. Hypothyroidism. Continue levothyroxine. 6. Hyperlipidemia. Continue atorvastatin. 7. Deep vein thrombosis prophylaxis sequential compression devices. Gastrointestinal prophylaxis proton pump inhibitor. cc: Tomy Ramirez MD
[2018-02-20] MEDS: SODIUM CHLORIDE 0.9% INJ SCH (20:53)
[2018-02-20] MEDS: ALLEGRA PO SCH (20:53)
[2018-02-20] MEDS: TESSALON PO PRN (20:53)
[2018-02-20] MEDS: SINGULAIR PO SCH (20:53)
[2018-02-20] MEDS: LIPITOR PO SCH (20:53)
[2018-02-21] MEDS: ZOSYN 3.375 GM in NS 50 ML IV SCH ×2 (01:24→06:39)
[2018-02-21] MEDS: DUONEB (A & A) INH SCH ×3 (03:27→12:12)
[2018-02-21] MEDS: SYNTHROID PO SCH (06:39)
[2018-02-21] MEDS: SYMBICORT 80/4.5 MICROGM INHALER INH SCH (08:09)
[2018-02-21] MEDS ORDERED: SENOKOT PO SCH (09:00)
[2018-02-21] MEDS ORDERED: MIRALAX PO SCH (09:00)
[2018-02-21] MEDS: SOLU-MEDROL IV SCH (09:13)
[2018-02-21] MEDS: PROTONIX IV SCH (09:13)
[2018-02-21] MEDS: VITAMIN C PO SCH (09:18)
[2018-02-21] MEDS ORDERED: VANCOMYCIN 1,700 MG in NS 250 ML IV SCH (11:00)
[2018-02-21] MEDS ORDERED: KLOR-CON PO ONE (13:06)
[2018-02-21 15:36] VITALS: BP 145/70
--- NOTE | 2018-02-21 15:45 | DISCHARGE SUMMARY ---
ADMISSION DATE: 02/04/2018 DISCHARGE DATE: PRINCIPAL DIAGNOSIS: Probable healthcare associated pneumonia. SECONDARY DIAGNOSES: 1. Bronchospasm. 2. Cerebral palsy. 3. Hyperlipidemia. 4. Lymphedema. 5. Morbid obesity. 6. Hypothyroidism. 7. Irritable bowel syndrome. 8. Gastrointestinal bleed. DISCHARGE MEDICATIONS: Include the following: Montelukast 10 mg p.o. once a day, benzonatate 100 mg p.o. 3 times a day, fexofenadine 60 mg p.o. once a day, Welchol 3.75 mg every bedtime, Robaxin 750 mg every 6 hours, ascorbic acid 500 mg p.o. daily, DuoNeb 3 mL every 6 hours as needed, Imodium 2-4 caps every 12 hours as needed, atorvastatin 10 mg p.o. daily, Flonase 1 spray twice a day, levothyroxine 800 mg p.o. daily, omeprazole 20 mg p.o. once a day, Augmentin 875 mg p.o. twice a day for the next 7 days, Zyvox 600 mg p.o. twice a day for the next 7 days. CONSULTATIONS DONE DURING THIS HOSPITAL STAY: 1. Dr. Ovidio James, pulmonology. 2. Dr. Ravinder Pham, pulmonology. 3. Dr. Raulito Monk, gastroenterology. HOSPITAL COURSE: Ms. Jimena Rod is a 52-year-old female. She does have a history of cerebral palsy, chronic lower extremity lymphedema as well as hyperlipidemia. She presents to the emergency room with several day history of shortness of breath, difficulty breathing, as well as coughing. She was evaluated in the ED. She was also noted to be hypoxic. When she presented to the hospital x-ray of the chest showed mild prominent perihilar lung markings, and this would indicate bronchitis. The patient was started on nebulized bronchodilators as well as antibiotics. She had a CT scan of the chest done and it showed atelectasis and/or bronchopneumonia. The patient's antibiotics were switched from Levaquin to vancomycin, Zosyn. The patient was seen by the GI team because of GI bleed, subsequently had lower GI endoscopic study done, which showed evidence of internal hemorrhoids, grade 2. At this time, the patient has done well, she is stable. She can be discharged to rehab facility today. PHYSICAL EXAMINATION: Vital signs: During my evaluation today, her vital signs were as follows: Temperature 99.2. Pulse 100. Respiratory rate 24. Blood pressure 147/71. Oxygen saturation 100%. HEENT: Atraumatic, normocephalic. Cardiovascular: S1, S2. Respiratory: Has evidence of good entry bilaterally. Abdomen: Soft, nontender. No masses felt. Extremities: No evidence of edema in both lower extremities. Central nervous system: No obvious focal deficit noted. PLAN: The patient can be discharged to rehab facility today. She will be discharged on 2 antibiotics, Augmentin as well as Zyvox, and she will complete 7 days of those antibiotics, and will need to have repeat chest x-ray after completing antibiotic regimen. She is also expected to take her other discharge medications as noted above. She will need to follow up with her primary physician in the next 2 weeks. cc: Tomy Ramirez MD
--- NOTE | 2018-02-22 04:51 | PROGRESS NOTE ---
DATE: 02/21/2018 SUBJECTIVE: The patient is resting in bed. She is feeling better. She denies any nausea, vomiting. Denies any fevers, rigors, chills. She had a bowel movement today. OBJECTIVE: Vital Signs: Temperature 97.6, pulse 120, respiratory rate 19, blood pressure 144/70, saturating 96% on nasal cannula. Body weight of 287 pounds. BMI of 58 kg/m2. General Appearance: Morbidly obese. Lying in bed, in no acute distress. Head, Eyes, Ears, Nose, and Throat: No pallor. No icterus. Neck: Supple. Abdomen: Morbidly obese. Soft. No guarding or rebound. Extremities: Bilateral chronic lower extremity edema noted. She has a history of lymphedema. Neurologic: She is alert, awake, oriented x3. LABS: Sodium of 3.2 today. Her vancomycin level 5.8. IMPRESSION AND PLAN: 1. Gastrointestinal bleeding, likely from hemorrhoids. She had a colonoscopy done yesterday that showed internal hemorrhoids and solids in the right colon. 2. Constipation. Continue MiraLAX 17 g p.o. b.i.d. We will hold her Questran. 3. Pneumonia. She is on antibiotics. 4. Morbid obesity. The patient counseled to lose weight. 5. Hypothyroidism. She is on levothyroxine. 6. Hyperlipidemia. She is on atorvastatin. 7. Deep venous thrombosis prophylaxis with SCDs and TEDs. 8. Gastrointestinal prophylaxis with PPI. The above plan of care was discussed with the patient, and all questions answered. Please call us with any further questions. cc: MD Leo Blanco MD
== END 2018-02-21 16:47 | DRG 193 ==
LOC: SUPCPDRO → ED 18:18 → SUATTDRO 02-04 01:33 → INTOOBSV 02-04 01:33 → 3N 02-04 01:33 → SUATTDRO 02-04 09:58
PROVIDERS: ATTEND Internal Medicine
CPT/HCPCS: 71010; 71020; 71045; 71046; 71275; 80048; 80053; 80202; 81001; 82805; 83605; 83735; 84132; 84145; 85025; 85027; 87070; 87088; 87205; 93005; 93010; 94640; 94761; 94799; 96374; 96375; 97110; 97116; 97162; 97166; 97530; 97535; 99285; A9270; C9113; J0696; J1940; J1956; J2250; J2543; J2920; J2930; J3370; J7030; J7040; J7050; Q9967; S0164